=== PATIENT | male | born 1950 | race Caucasian/White ===

== ENCOUNTER → 2023-07-23 10:46 | Outpatient (REF) | payer OTHER, SELFPAY ==
[2023-07-23 12:14] LABS: Hemoglobin 16.2 g/dL (13.0-18.0)
[2023-07-23 12:52] LABS: Microalbumin, Random Urine 0.6 mg/dl (0.6-1.7)
[2023-07-23 13:31] LABS: PSA, Total - Diagnostic 2.22 ng/ml (0.0-4.0)
[2023-07-23 14:30] LABS: Albumin 3.9 g/dl (3.5-5.0); Blood Urea Nitrogen 31 mg/dl (9-20); Calcium 9.8 mg/dl (8.4-10.2); Carbon Dioxide 26 mmol/L (22-30); Chloride 104 mmol/L (98-107); Glucose 100 mg/dl (70-99); Phosphorus 3.6 mg/dl (2.5-4.5); Potassium 4.5 mmol/L (3.5-5.1); Sodium 141 mmol/L (135-145)
[2023-07-24 09:40] LABS: Intact PTH 16.7 pg/ml (13.6-85.8)
== END ==
LOC: RAD 10:46
PROVIDERS: ATTENDING PHYSICIAN Urology; FAMILY PHYSICIAN Family Medicine; OTHER PHYSICIAN Internal Medicine Nephrology; OTHER PHYSICIAN Urology
DX: N20.0 Calculus of kidney (principal); C61 Malignant neoplasm of prostate; N18.32 Chronic kidney disease, stage 3b
CPT/HCPCS: 36415; 76770; 80069; 82043; 83970; 84153; 85018

== ENCOUNTER → 2023-07-25 16:50 | Outpatient (REF) | payer OTHER, SELFPAY | LOC: RAD 16:50 | PROVIDERS: ATTENDING PHYSICIAN Nurse Practitioner Adult Health | DX: R05.1 Acute cough (principal) | CPT/HCPCS: 71046 ==

== ENCOUNTER → 2024-03-12 13:41 | Outpatient (REF) | payer OTHER, SELFPAY | LOC: RAD 13:41 | PROVIDERS: ATTENDING PHYSICIAN Family Medicine | DX: Z87.891 Personal history of nicotine dependence (principal); J44.9 Chronic obstructive pulmonary disease, unspecified; Z72.0 Tobacco use; Z12.2 Encounter for screening for malignant neoplasm of respiratory organs | CPT/HCPCS: 71271 ==

== ENCOUNTER → 2024-06-30 08:30 | Outpatient (REF) | payer OTHER, SELFPAY | LOC: DHCBC/DCA 08:30 | PROVIDERS: ATTENDING PHYSICIAN Family Medicine; REFERRING PHYSICIAN Internal Medicine Cardiovascular Disease | DX: R06.09 Other forms of dyspnea (principal); R91.8 Other nonspecific abnormal finding of lung field | CPT/HCPCS: 78452; 93017; A9500; J2785 ==

== ENCOUNTER → 2024-07-09 11:23 | Outpatient (REF) | payer OTHER, SELFPAY | LOC: RCS 11:23 | PROVIDERS: ATTENDING PHYSICIAN Internal Medicine Cardiovascular Disease; FAMILY PHYSICIAN Family Medicine | DX: R06.09 Other forms of dyspnea (principal) | CPT/HCPCS: 93306 ==

== ENCOUNTER 2024-07-28 13:17 | Inpatient (IN) | payer OTHER, SELFPAY ==
[2024-07-28 09:36] VITALS: BP 92/54
[2024-07-28 10:26] VITALS: BMI 27.8
[2024-07-28] MEDS: NSS 1000 IV ×3 (10:37→23:08)
--- NOTE | 2024-07-28 10:39 | ED.GENMED ---
History of Present Illness
General
Chief Complaint: Fever
Time Seen by Provider: 07/28/24 09:49
History of Present Illness
History of Present Illness:
73-year-old male with history of CKD and COPD presenting to the emergency department for cough and fever. Patient arrives with , notes cough for the past several days which has worsened in the past 2 days. Patient started to have fevers since
yesterday. He reports production of yellowish mucus. Also reports 2 episodes of vomiting. Denies chest pain or difficulty breathing. He does report for the past 24 hours he has been having hiccups. Denies abdominal pain or GI symptoms. at
bedside notes that he has been very weak, had difficulty getting him out of bed into the hospital. Additionally she notes that he has been having some hallucinations which is unlike him. No report of any falls. Multiple sick contacts at home. No
additional symptoms reported at this time
Phy Exam
Physical Exam
Physical Exam:
General: Well-appearing, no clinical signs of dehydration, nontoxic and in no acute distress
HEENT: protecting airway
Neck: appears supple
CV: Normal heart rate, regular rhythm, no evidence of cyanosis
Resp: No accessory muscle use, no increased work of breathing, mild scant expiratory wheezine
Abd: Soft and non-distended, no tenderness to palpation
Extremities: No deformities, no swelling
Neuro: alert, no focal neurologic deficit
: deferred
Rectal: deferred
Psych: Normal affect
Skin: Intact
Course
Orders/Labs/Results
Orders:
Orders
07/28/24 10:13
0.9% Sodium Chloride 1000 ml [Nss] 1,000 ml IV BOLUS
07/28/24 10:14
CR Chest - 2 Views Urgent
Comment:
Reason For Exam: sob, hiccups, cough
07/28/24 10:15
Electrocardiogram (*1) Urgent
Reason for Study: Fatigue / Weakness
07/28/24 10:28
COVID-19 Antigen Urgent
Source: Nasal Swab
Complete Blood Count/With Diff Urgent
Comprehensive Metabolic Panel Urgent
Lactic Acid Q4H
Comment: CANCEL 2nd LACTIC ACID IF 1st LACTIC ACID IS LESS THAN 2
Blood Culture Q30M
RITESH Source: Blood/Venous
Specimen Description:
Blood Culture Q30M
RITESH Source: Blood/Venous
Specimen Description:
Influenza A+B Rapid Molecular Urgent
RITESH Source: Nasal Swab
Specimen Description:
07/28/24 11:46
Nicotine [Nicoderm Transdermal] 21 mg TRANSDERM NOW STA
07/28/24 12:34
Dexamethasone Sod Phosphate [Decadron] 4 mg IV NOW STA
Ipratropium/Albuterol Sulfate [Duoneb] 3 ml INH R Q4HPRN PRN
Metoclopramide [Reglan] 5 mg IV NOW STA
Metoclopramide [Reglan] 5 mg IV Q6HPRN PRN
Oseltamivir Phosphate [Tamiflu] 30 mg PO NOW STA
07/28/24 12:38
Pantoprazole [Protonix IV] 40 mg IV NOW STA
07/28/24 12:45
0.9% Sodium Chloride 1000 ml [Nss] 1,000 ml IV 100 mls/hr
07/28/24 12:53
Admit/Transfer Patient As Directed
Co-Sign Provider:
Level of Care: Inpatient admission
Assign to:: Telemetry
Physician / Group: elizabeth gaytan
Diagnosis: flu A+, acute copd exacerbation, sarita on ckd 3b
Reason for Telemetry: Arrhythmia
Date to Stop Telemetry: 07/31/24
Time to Stop Telemetry: 11:00
Reason for Hospitalization: flu A+, acute copd exacerbation, sarita on ckd 3b
Expected length of stay greater than two midnights?: Yes
ELOS- Estimated Length of Stay in days: 4
I certify the patient meets the requirements for IP care: Yes
Code Status As Directed
Resuscitation Status: Full Code
07/28/24 12:57
PRN Pain Medication Management As Directed
May give lesser potent ordered pain med per pt: Yes
preference::
Protocol:: Medication orders for pain may be administered in a
manner that supports deferring to patient preference
when the pt is:
- Requesting an ordered lesser potent pain medication.
Least to most potent pain medications are defined
as: acetaminophen < NSAID < tramadol < opioids
(morphine, oxycodone, hydromorphone).
- Requesting a lesser dose of the same medication IF
ORDERED.
- Requesting a less intrusive route of administration
if both routes are prescribed by the provider (PO <
IV).
07/28/24 13:02
0.9% Sodium Chloride [Nss (Preservative Free)] 10 ml IV NOW STA
07/28/24 13:32
Acetaminophen [Tylenol] 650 mg PO Q4HPRN PRN
07/28/24 14:20
Nicotine Polacrilex [Nicorette] 2 mg PO Q2HPRN PRN
Ondansetron Injectable [Zofran] 4 mg IV Q6HPRN PRN
07/28/24 14:20
Activity As Directed
Activity Level: As Tolerated
Intake/ Output As Directed
Frequency: Per unit guidelines
Vital Signs As Directed
Frequency: Per unit guidelines
Weight As Directed
Frequency: Daily
O2 Therapy [RESP] Routine
Nasal Cannula Liter Flow: 2 LPM
Titrate/Wean O2 to maintain O2 sat greater than (%): 92
Pulse Ox/spot Check [RESP] Routine
Quantity: 1
Ot Eval And Treat Routine
Pt Eval And Treat Routine
Activity Level: With Assistance
DX Deep Vein Thrombosis Video Routine
07/28/24 16:00
Ipratropium/Albuterol Sulfate [Duoneb] 3 ml INH R QID
07/28/24 18:00
Atorvastatin [Lipitor] 10 mg PO QPM
Fenofibrate [Tricor] 48 mg PO QPM
Finasteride [Proscar] 5 mg PO QPM
07/28/24 20:00
Guaifenesin [Mucinex] 600 mg PO Q12
Heparin 5,000 units SC Q12
Oseltamivir Phosphate [Tamiflu] 30 mg PO BID
07/29/24 00:00
Dexamethasone Sod Phosphate [Decadron] 4 mg IV Q12H
07/29/24 06:00
Complete Blood Count/With Diff IN AM
Comprehensive Metabolic Panel IN AM
Respiratory Culture/Gram Stain IN AM
RITESH Source: Sputum
Specimen Description:
07/29/24 08:00
0.9% Sodium Chloride [Nss (Preservative Free)] 10 ml IV DAILY
Aspirin Chewable [Low Strength Aspirin] 81 mg PO DAILY
Cyanocobalamin [Vitamin B-12] 100 mcg PO DAILY
Pantoprazole [Protonix IV] 40 mg IV DAILY
07/30/24 06:00
Complete Blood Count/With Diff IN AM
Comprehensive Metabolic Panel IN AM
07/31/24 06:00
Complete Blood Count/With Diff IN AM
Comprehensive Metabolic Panel IN AM
07/31/24 11:00
DC Protocol for Telemetry ONCE
08/01/24 06:00
Complete Blood Count/With Diff IN AM
Comprehensive Metabolic Panel IN AM
Abnormal Lab Results
07/28/24
10:28
Absolute Neuts (auto) 6.7 H 10^3/uL
(1.4-6.5)
Absolute Lymphs (auto) 0.8 L 10^3/uL
(1.2-3.4)
Absolute Monos (auto) 1.2 H 10^3/uL
(0.1-0.6)
Neutrophils % 76.7 H %
(42.2-75.2)
Lymphocytes % 9.0 L %
(20.5-51.1)
Monocytes % 13.9 H %
(1.7-9.3)
BUN 52 H mg/dl
(9-20)
Creatinine 2.3 H mg/dL
(0.7-1.3)
Glucose 104 H mg/dl
(70-99)
Total Bilirubin 1.4 H mg/dl
(0.2-1.3)
07/28/24 10:28
07/28/24 10:28
Vital Signs
Initial and Last Documented VS:
Initial Vital Signs
Temp Pulse Resp BP Pulse Ox
100.4 F H 70 20 92/54 100
07/28/24 09:36 07/28/24 09:36 07/28/24 09:36 07/28/24 09:36 07/28/24 09:36
Last Documented Vital Signs
Temp Pulse Resp BP Pulse Ox
102.8 F H 77 18 113/57 95
07/28/24 14:55 07/28/24 14:59 07/28/24 14:59 07/28/24 14:55 07/28/24 14:59
MDM/Problems Addressed
MDM/Problems Addressed:
73-year-old male with history of CKD and COPD presenting for cough and fever with weakness. Vital signs on arrival significant for low-grade fever and low blood pressure.
On exam patient is in no acute distress, currently nontoxic. However vital signs concerning for infectious process and developing sepsis. With the bedside notes history of sepsis in the past. Suspected source of infection is pulmonary given
cough. Patient also notes constant hiccups for the past 24 hours, likely secondary to some sort of diaphragm irritation. Will proceed with laboratory analysis including blood cultures, lactic acid, chest x-ray, viral swabs. Will start patient on
IV fluids and continue to closely monitor
12:00 -patient positive for the flu. Chest x-ray without acute cardiopulmonary disease. Labs show worsening kidney function, indicating component of dehydration. Do feel patient warrants admission given weakness, difficulty ambulating at home,
hallucinations, SARITA. Patient out of window for tamiflu.
*Critical Care Note
Total Time (30-74mins, 75-104mins- exclusive of procedures): Not Applicable
ED Attending Note
-
Portions of this chart may have been created with voice recognition software.� Occasional wrong word or��sound alike� substitutions may have occurred due to the inherent limitations of voice recognition software.
Discharge Plan
Departure
Patient Disposition: Admit
Date of Disposition: 07/28/24
Time of Disposition: 12:10
Presentation/result/management discussed w/ accepting MD/DO: Hospitalist
Condition: Fair
Discharge Problem:
Influenza, Weakness, SARITA (acute kidney injury)
Interventions
Interventions:
*Risk Screen - Suicide Last Done: 07/28/24 10:27
*General Assessment Last Done: 07/28/24 10:27
*Nursing Disposition Last Done: 07/28/24 14:16
ED- Neurological Assessment Last Done: 07/28/24 10:41
ED- Pulmonary Assessment Last Done: 07/28/24 11:06
ED-Skin Assessment Last Done: 07/28/24 10:41
Discharge Date and Time
Discharge Date/Time: 07/28/24 14:17
[2024-07-28 10:49] LABS: % Basophils 0.1 % (0-2); % Eosinophils 0.1 % (0-6); % Immature Granulocytes 0.2 % (0-0.5); % Monocytes 13.9 % (1.7-9.3); % Neutrophils 76.7 % (42.2-75.2); Absolute Lymphocytes 0.8 10^3/uL (1.2-3.4); Absolute Monocytes 1.2 10^3/uL (0.1-0.6); Absolute Neutrophils 6.7 10^3/uL (1.4-6.5); Hematocrit 44.1 % (39.0-52.0); Hemoglobin 14.6 g/dL (13.0-18.0); Mean Corp Hgb Conc. 33.1 g/dL (33.0-37.0); Mean Corpuscular Hgb 28.6 pg (27.0-31.0); Mean Corpuscular Volume 86.3 fL (80.0-94.0); Mean Platelet Volume 10.2 fL (7.4-10.4); Nucleated Red Blood Cells % 0 % (-); Platelet Count 147 10^3/uL (130-400); Red Blood Cell Count 5.11 10^6/uL (4.70-6.10); Red Cell Dist. Width 14.5 % (11.5-14.5); White Blood Cell Count 8.7 10^3/uL (4.8-10.8)
[2024-07-28 11:02] LABS: COVID-19 Antigen Negative (Negative)
[2024-07-28 11:03] VITALS: BP 92/78
[2024-07-28 11:08] LABS: ALT (SGPT) 46 U/L (0-50); AST (SGOT) 58 U/L (17-59); Albumin 4.2 g/dl (3.5-5.0); Alkaline Phosphatase 67 U/L (38-126); Blood Urea Nitrogen 52 mg/dl (9-20); Calcium 9.5 mg/dl (8.4-10.2); Carbon Dioxide 22 mmol/L (22-30); Chloride 101 mmol/L (98-107); Estimated Creatinine Clearance 31 ml/min; Glucose 104 mg/dl (70-99); Potassium 4.2 mmol/L (3.5-5.1); Sodium 137 mmol/L (135-145); Total Bilirubin 1.4 mg/dl (0.2-1.3); eGFR 29.25
[2024-07-28 11:12] LABS: Lactic Acid 1.1 mmol/L (0.7-2.0)
[2024-07-28] MEDS: NICODERM TRANSDERMAL 21 MG TRANSDERM (11:48)
--- NOTE | 2024-07-28 12:39 | W.PN.UPDATE ---
Update Note
Progress Note Update
This is an addendum to the H&P written by Araceli Mera on 07/28/2024. Patient seen and examined independently with CODING ADVISOR.
73-year-old male past medical history of CKD, COPD, hypertension, prostate cancer, BPH, hyperlipidemia, abdominal aortic aneurysm status post repair in 2018, nephrolithiasis, presenting with fever and productive cough for past week and worse in the
past 2 days. Fever starting yesterday. 2 episodes of vomiting. Also with persistent hiccups since yesterday.
Patient with fever 100.4. Blood pressure 90 systolic. Patient positive for influenza A.
Chest x-ray unremarkable. Slight expiratory wheezing on examination.
Labs show creatinine of 2.3 from baseline of 1.6.
Patient clinically septic secondary to influenza infection also with COPD exacerbation/acute bronchitis.
Blood cultures pending. Start Tamiflu. DuoNebs, dexamethasone. IV fluids. Hold antihypertensive medications. Protonix and as needed Reglan for ongoing hiccups.
--- NOTE | 2024-07-28 12:45 | HPS.HSE ---
Family Physician
-
Family Physician: Gamal Mcdonald Jr.
Chief Complaint
-
Productive cough, fever, weakness
History of Present Illness
73-year-old male from home where he lives with his adult sons and multiple grandchildren. He states his grandchildren started 2 weeks ago with flu and has progressed throughout the house including 1 granddaughter sick 4 weeks ago with flu and
pneumonia other granddaughter yesterday started with fever and flu A. Patient has history of chronic cough due to COPD he developed a temperature of 101.5 yesterday with extreme weakness per patient and his . He was taking Tylenol and Mucinex
his [id number] is a nurse practitioner and noticed some wheezing she gave him a nebulizer treatment she had at home for her children which helped improve his breathing. He has temperature here in the ER of 100.4 with O2 sat 92 to 96% on room
air. He complains of productive cough yellow in color, weakness, chills, fever, decreased oral intake. He denies headache, sore throat, chest pain, palpitations, abdominal pain, nausea, vomiting, diarrhea, urinary symptoms. He has past medical
history of COPD, active smoker, hypertension, HLD, CKD 3B, prostate cancer stage I being monitored, renal calculi bladder calculi with sepsis, abdominal aortic aneurysm repair 2018 with stent [facility].
Medical History
Past Medical History
Past Medical History: Reports Other
Additional Past Medical History:
COPD
active smoker
hypertension
HLD
CKD 3B
prostate cancer stage I being monitored
renal calculi bladder calculi with sepsis
Abdominal Aortic Aneurysm repair 2018 with stent [facility].
Past Surgical History: Reports Other
Additional Past Surgical History:
Abdominal Aortic Aneurysm repair 2018 with stent [facility].
Social History
Tobacco: Smoker (1 pack a day x 60 years)
Alcohol: Occasional (1 glass of wine a month)
Personal:
Living: With Family ( adult sons and multiple grandchildren)
Employment: Retired
Family History
Family History: Other (Mother lungs CA history hypertension DM, father multiple strokes, HTN, DM 2)
Allergies / Home Medications
Allergies reflects when Allergies were last updated in [facility].
Home Medications with original date entered in [facility]
Allergy/Medication List:
Allergies
Allergy/AdvReac Type Severity Reaction Status Date / Time
No Known Allergies Allergy Verified 07/28/24 09:46
Home Medications
aspirin 81 mg chewable tablet 81 mg PO DAILY 07/28/24
atorvastatin 10 mg tablet 10 mg PO QPM 07/28/24
chlorthalidone 25 mg tablet 12.5 mg PO DAILY 07/28/24
cyanocobalamin (vitamin B-12) 100 mcg tablet (Vitamin B-12) 100 mcg PO DAILY 07/28/24
doxazosin 8 mg tablet 8 mg PO QPM 07/28/24
dutasteride 0.5 mg capsule 0.5 mg PO QPM 07/28/24
fenofibrate micronized 67 mg capsule 67 mg PO QPM 07/28/24
lisinopril 40 mg tablet 40 mg PO QPM 07/28/24
Review of Systems
-
History Source: Patient and Family ( at bedside)
A 12 point ROS was completed and negative except as noted: Yes
Constitutional: Reports Fever, Fatigue and Chills
EENT: Denies Sore Throat or Runny Nose
Respiratory: Reports Cough (Productive yellow) and Trouble Breathing (Shortness of breath with wheezing expiratory)
Cardiac: Denies Chest Pain, Diaphoresis, Palpitations or Syncope
Abdomen/GI: Reports Other (Decreased oral intake); Denies Abdominal Pain, Nausea, Vomiting, Diarrhea, Constipated, Bloody Stools, Black Stools or Anorexia
: Denies Dysuria, Frequency, Flank Pain, Incontinence, Difficulty Voiding, Urgency or Dark Urine
Musculoskeletal: Denies Joint Pain or Edema
Skin: Denies Itching or Rash
Neurological: Reports Weakness (Generalized); Denies Dizzy or Headache
Endocrine: Reports No Symptoms
Hematologic/Lymphatic: Reports No Symptoms
Psych: Reports Calm
Physical Exam
Vital Signs
Vital Signs
Temp Pulse Resp BP Pulse Ox
100.4 F H 76 23 92/78 94
07/28/24 09:36 07/28/24 11:04 07/28/24 11:04 07/28/24 11:03 07/28/24 11:04
Physical Exam
General: Conversant, Fever, Chills and Other (Generalized weakness); No Pain
HEENT: NormoCephalic, Anicteric, PERRLA, [place] Conjunctivae, No Ptosis and Neck Nontender; No Pharyngeal Erythema
Respiratory: Clear and Wheezes (Expiratory throughout both lung [place]); No Rales or Rhonchi
Cardiac: S1/S2 and Regular Rhythm; No Murmur, Rub, Gallop or Peripheral Edema
Breast: Deferred by me
GI: Soft, Non Tender, Non Distended, Normal Bowel Sounds and No Hepatosplenomegaly
Rectal: Deferred by Provider
Genito-urinary: Deferred by me
Musculoskeletal: No Clubbing, No Cyanosis and No Edema
Skin: Warm and Dry; No Rash or Jaundice
Neuro: AO x 3, No Motor Deficits, Nonfocal/grossly intact, Cranial Nerves Intact and No Sensory Deficits; No Slurred Speech, Facial Droop, Tremors or Sedated
Psych: Calm
Laboratory Results
-
07/28/24 10:28
07/28/24:
Laboratory Results
Lactic Acid 1.1 mmol/L (0.7-2.0) 07/28/24:
Total Bilirubin 1.4 mg/dl (0.2-1.3) H 07/28/24 10:28
AST 58 U/L (17-59) 07/28/24:
ALT 46 U/L (0-50) 02/10/25 10:28
Alkaline Phosphatase 67 U/L (38-126) 07/28/24 10:28
Data Reviewed
-
Diagnostic Radiology: Report Reviewed by me
Lab Data: Labs Reviewed by me
Impression/Plan
-
Impression/plan:
Admit to telemetry
Generalized weakness secondary to influenza A
COVID-negative
92% RA monitor pulse ox will have nasal cannula available to keep pulse ox greater than 92%
Cough x 1 week chronic, fever yesterday to 03/07/2025
-Start Tamiflu 30 mg now and 30 mg twice daily x 5 days
-IV NSS 1 L given in ER, continue IV NSS 100 cc/h
-Tylenol as needed fever
-PT/OT/case management
CXR: No acute cardiopulmonary process
# Acute on chronic COPD exacerbation secondary to influenza A
-DuoNebs scheduled and as needed
-Decadron 4 mg now and 4 mg every 12 hours
-IV Protonix 40 mg down 40 mg daily
#Acute hiccups
-Will give Reglan 5 mg every 6 as needed renal dose
# Acute smoker
1 pack/day x 60 years
-Cessation advised
-Nicotine patch [address]
-As needed Nicorette gum
#Hypotension secondary to volume depletion/HTN�benign
IV NSS 1 bolus given in ER, continue IV NSS 100 cc/h
-Hold chlorthalidone 12.5 mg daily, lisinopril 40 mg every afternoon, doxazosin 8 mg every afternoon
#SARITA on CKD 3B
Creat 2.3/bun 52, GFR 29 prior creat 1.6 on 07/23/2023
-IV NSS 1 bolus given in ER, continue IV NSS 100 cc/h
-Follow BMP
#HLD
-Continue aspirin 81 mg daily preventative
-Continue Lipitor 10 mg every afternoon, fenofibrate 67 mg every afternoon
#AAA�abdomen repair with stent 2018 [facility]
#Prostate CA stage I is being monitored by urology
#BPH
-Continue dutasteride 0.5 mg every afternoon,
Hold doxazosin 8 mg p.o. every afternoon due to hypotension
DVT prophylaxis
Subcu heparin
Full code
[2024-07-28] MEDS: REGLAN 5 MG IV (13:33)
[2024-07-28] MEDS: DECADRON 4 MG IV ×2 (13:33→23:10)
[2024-07-28] MEDS: PROTONIX IV 40 MG IV (13:34)
[2024-07-28] MEDS: NSS (PRESERVATIVE FREE) 10 ML IV (13:35)
[2024-07-28] MEDS: TYLENOL 650 MG PO (13:36)
[2024-07-28] MEDS: DUONEB 3 ML INH ×2 (14:54→21:25)
[2024-07-28 14:55] VITALS: BP 113/57
[2024-07-28 16:38] VITALS: BP 121/58
[2024-07-28 20:33] VITALS: BP 132/73
[2024-07-28] MEDS: TRICOR 48 MG PO (20:35)
[2024-07-28] MEDS: PROSCAR 5 MG PO (20:35)
[2024-07-28] MEDS: HEPARIN 5000 UNITS SC (20:35)
[2024-07-28] MEDS: LIPITOR 10 MG PO (20:35)
[2024-07-28] MEDS: MUCINEX 600 MG PO (20:36)
--- NOTE | 2024-07-28 21:09 | W.PN.UPDATE ---
Update Note
Progress Note Update
RN reports patient refusing Tamiflu. patient and refusing Tamiflu due to its side effects. will discontinue Tamiflu.
--- NOTE | 2024-07-28 21:27 | PTCARENOTE ---
During admission process was at bedside and told me she did not want pt to take tamifu due to the side effects. ALLYN notified to DC order.
[2024-07-28 23:29] VITALS: BP 107/52
[2024-07-29 03:34] VITALS: BP 124/65
[2024-07-29 04:28] VITALS: BMI 28.0
[2024-07-29] MEDS: NSS (PRESERVATIVE FREE) 10 ML IV (07:32)
[2024-07-29] MEDS: LOW STRENGTH ASPIRIN 81 MG PO (07:33)
[2024-07-29] MEDS: MUCINEX 600 MG PO (07:33)
[2024-07-29] MEDS: VITAMIN B-12 100 MCG PO (07:33)
[2024-07-29] MEDS: PROTONIX IV 40 MG IV (07:33)
[2024-07-29] MEDS: HEPARIN 5000 UNITS SC (07:33)
[2024-07-29 07:47] VITALS: BP 135/69
[2024-07-29] MEDS: DUONEB 3 ML INH (07:58)
[2024-07-29] MEDS: NSS 1000 IV (08:17)
[2024-07-29 08:27] LABS: % Basophils 0.1 % (0-2); % Immature Granulocytes 0.6 % (0-0.5); % Lymphocytes 12.2 % (20.5-51.1); % Monocytes 7.8 % (1.7-9.3); % Neutrophils 79.3 % (42.2-75.2); Absolute Immature Granulocytes 0.1 10^3/uL (0-0.05); Absolute Monocytes 0.7 10^3/uL (0.1-0.6); Absolute Neutrophils 6.6 10^3/uL (1.4-6.5); Hematocrit 42.9 % (39.0-52.0); Mean Corp Hgb Conc. 32.6 g/dL (33.0-37.0); Mean Corpuscular Hgb 28.2 pg (27.0-31.0); Mean Corpuscular Volume 86.5 fL (80.0-94.0); Mean Platelet Volume 10.4 fL (7.4-10.4); Nucleated Red Blood Cells % 0 % (-); Platelet Count 151 10^3/uL (130-400); Red Blood Cell Count 4.96 10^6/uL (4.70-6.10); Red Cell Dist. Width 14.6 % (11.5-14.5); White Blood Cell Count 8.3 10^3/uL (4.8-10.8)
[2024-07-29 08:46] LABS: ALT (SGPT) 42 U/L (0-50); AST (SGOT) 56 U/L (17-59); Albumin 3.5 g/dl (3.5-5.0); Alkaline Phosphatase 56 U/L (38-126); Blood Urea Nitrogen 51 mg/dl (9-20); Calcium 8.7 mg/dl (8.4-10.2); Carbon Dioxide 19 mmol/L (22-30); Chloride 107 mmol/L (98-107); Estimated Creatinine Clearance 48 ml/min; Glucose 130 mg/dl (70-99); Potassium 4.6 mmol/L (3.5-5.1); Sodium 138 mmol/L (135-145); Total Bilirubin 0.8 mg/dl (0.2-1.3); Total Protein 6.3 g/dl (6.3-8.2); eGFR 48.85
[2024-07-29 09:00] VITALS: BP 115/74; PULSE 67; O2SAT 94
[2024-07-29 09:05] VITALS: BP 115/74; PULSE 59; O2SAT 94
--- NOTE | 2024-07-29 09:50 | PTOTSP ---
Pt is feeling better and hopes to go home. He is able to get OOB and ambulate without an assistive device. PT will sign off.
--- NOTE | 2024-07-29 10:49 | CM ---
Patient seen bedside with spouse.
Flu +
Patient independent prior to admission.
Patient drives and is retired,.
Patient lives in sons 2 story home.
Patient does not use assistive devices.
Patient has not had VN and denies home care needs.
Patient has a nebulizer at home.
PCP: Dr Mcdonald
Pharmacy: [facility]
Plan: home no needs.
[2024-07-29 11:42] VITALS: BP 134/64
[2024-07-29] MEDS: DECADRON 4 MG IV (11:47)
--- NOTE | 2024-07-29 12:59 | W.DCSUMMARY ---
Addendum entered and electronically signed by Chris Thomas DO 07/31/24 12:47:
Sepsis ruled out
Original Note:
Discharge Summary
Discharge Data
Date of Admission: 07/28/24
Date of Discharge: 07/29/24
-
Pending Results: No
Hospital Course
Mr. Cosby is a 73-year-old male with a medical history of hypertension, CKD stage IIIb, abdominal aortic aneurysm (status post repair 2018), current smoker, and COPD with chronic cough who presented with weakness, fever, and wheezing. He was
found to be saturating appropriately on room air with a pulse ox of 92 to 96% and was borderline febrile with a temperature of 100.4 �F which later fabrice to 103 �F. He tested positive for influenza A and negative for COVID. Chest x-ray showed no
acute pathology. He was bronchospastic on exam which improved with IV steroids. He declined use of oseltamivir due to concern about side effects. Approximately 24 hours after presentation his respiratory status returned to baseline and his
bronchospasm had resolved. He remained afebrile since 4:30 PM on 07/28. Initially his labs revealed an SARITA with a creatinine of 2.3 but improved to 1.5 after IV fluids which appears to be close to his baseline renal function. This is likely due to
poor recent p.o. intake in the setting of acute illness while also taking lisinopril for hypertension. His home dose of lisinopril 40 mg has been decreased to 20 mg for now. He will need to follow-up closely with his primary care physician after
discharge for repeat lab work to monitor his renal function. He will be discharged to home with a prescription for Medrol Dosepak. He has been advised to quit smoking and continue his scheduled home inhalers for COPD. He should also follow-up
with a administrative support clerk which he says he has not done recently.
Gen-AAOx3, NAD
HEENT-NC, AT, anicteric, clear oral mm
Neck-supple
CV-reg, no M, +S1/S2
Lungs-clear B/L
Abd-soft, NT, ND
Musculoskeletal-no edema, no deformity
Skin-warm and dry
Neuro-grossly non-focal
Psych-calm, cooperative
Discharge Plan
-
Patient Disposition: Home (Routine Discharge)
Discharge Diagnosis/Procedures: Bronchospasm, influenza A infection
Diet: No restrictions
Activity: No restrictions and As tolerated
Activity Restrictions/Additional Instructions:
Mr. Cosby is a 73-year-old male with a medical history of hypertension, CKD stage IIIb, abdominal aortic aneurysm (status post repair 2018), current smoker, and COPD with chronic cough who presented with weakness, fever, and wheezing. He was
found to be saturating appropriately on room air with a pulse ox of 92 to 96% and was borderline febrile with a temperature of 100.4 �F which later fabrice to 103 �F. He tested positive for influenza A and negative for COVID. Chest x-ray showed no
acute pathology. He was bronchospastic on exam which improved with IV steroids. He declined use of oseltamivir due to concern about side effects. Approximately 24 hours after presentation his respiratory status returned to baseline and his
bronchospasm had resolved. He remained afebrile since 4:30 PM on 07/28. Initially his labs revealed an SARITA with a creatinine of 2.3 but improved to 1.5 after IV fluids which appears to be close to his baseline renal function. This is likely due to
poor recent p.o. intake in the setting of acute illness while also taking lisinopril for hypertension. His home dose of lisinopril 40 mg has been decreased to 20 mg for now. He will need to follow-up closely with his primary care physician after
discharge for repeat lab work to monitor his renal function. He will be discharged to home with a prescription for Medrol Dosepak. He has been advised to quit smoking and continue his scheduled home inhalers for COPD. He should also follow-up
with a administrative support clerk which he says he has not done recently.
Referrals:
Gamal Mcdonald Jr., DO [Family Provider] -
Prescriptions:
New
nicotine (polacrilex) 2 mg Gum
2 mg PO Q2HPRN PRN (Reason: craving nicotine) 30 Days Qty: 30 0RF
guaifenesin 600 mg Tablet Extended Release 12hr
600 mg PO Q12 3 Days Qty: 6 0RF
methylprednisolone [Medrol (Steven)] 4 mg tablets,dose pack
See Rx Instructions .ROUTE .COMPLEX Qty: 21 0RF
Rx Instructions:
for 6 days
Continued
cyanocobalamin (vitamin B-12) [Vitamin B-12] 100 mcg Tablet
100 mcg PO DAILY
atorvastatin 10 mg tablet
10 mg PO QPM
chlorthalidone 25 mg tablet
12.5 mg PO DAILY
fenofibrate micronized 67 mg capsule
67 mg PO QPM
doxazosin 8 mg tablet
8 mg PO QPM
aspirin 81 mg Tablet,Chewable
81 mg PO DAILY
dutasteride 0.5 mg capsule
0.5 mg PO QPM
Changed
lisinopril 40 mg tablet
20 mg PO QPM 30 Days Qty: 0 0RF
Discharge Orders:
Discharge Patient (As Directed); Ordered 07/29/24
Ordered By: Chris Thomas
Discharge Date and Time
Print Language: MEXICAN
--- NOTE | 2024-07-31 11:58 | PN.CDI ---
CDI
- -
CDI:
Physician Documentation Request
Admit Date: 07/28/24 13:17
Dear Doctor Martha,
Please review the following and provide your response in the progress notes.
Clinical Indicators:
Documentation in the record on the ED report & the 07/28 update note includes the diagnosis of sepsis. The following clinical information was noted in the record:
ED record states 'concerning for infectious process and developing sepsis.'
The 07/28 update note which is an addendum to the H&P states 'Patient clinically septic secondary to influenza infection also with COPD exacerbation/acute bronchitis.'
Based on the above information and the recognized standard SIRS criteria, please clarify if sepsis is still an accurate diagnosis, and reflective of the patient�s condition, to ensure quality of the medical record.
Please clarify in the Progress Notes:
�Sepsis is/was present and is a clinical diagnosis based on (please include this additional support in the medical record)
�After study sepsis has been ruled out
�Other
�Unable to determine
Use of terms such as suspected, likely, concern for, or probable (associated with a specific diagnosis that is being evaluated, monitored, or treated as if it exists) are acceptable and can be coded in the inpatient setting, when documented at the
time of discharge.
Thank you,
Shweta Mann
Staffing Program Manager
Please use your independent medical judgment in providing your response.
== END 2024-07-29 13:55 | disposition home or self-care (01) | DRG 194 ==
LOC: 1 ACUTE 13:17
PROVIDERS: Clinical Nurse Specialist Family Health; Student in an Organized Health Care Education/Training Program; ADMITTING PHYSICIAN Hospitalist; ATTENDING PHYSICIAN Internal Medicine; EMERGENCY PHYSICIAN Student in an Organized Health Care Education/Training Program; FAMILY PHYSICIAN Family Medicine
DX: J10.1 Influenza due to other identified influenza virus with other respiratory manifestations (principal); J44.0 Chronic obstructive pulmonary disease with (acute) lower respiratory infection; J44.1 Chronic obstructive pulmonary disease with (acute) exacerbation; N17.9 Acute kidney failure, unspecified; Z87.442 Personal history of urinary calculi; F17.200 Nicotine dependence, unspecified, uncomplicated; I12.9 Hypertensive chronic kidney disease with stage 1 through stage 4 chronic kidney disease, or unspecified chronic kidney disease; N18.32 Chronic kidney disease, stage 3b; E78.5 Hyperlipidemia, unspecified; C61 Malignant neoplasm of prostate; Z83.3 Family history of diabetes mellitus; Z82.49 Family history of ischemic heart disease and other diseases of the circulatory system; Z71.6 Tobacco abuse counseling; Z79.82 Long term (current) use of aspirin; Z11.52 Encounter for screening for COVID-19; R06.6 Hiccough; I95.9 Hypotension, unspecified; E86.0 Dehydration; J20.9 Acute bronchitis, unspecified
CPT/HCPCS: 71046; 80053; 83605; 85025; 87040; 87502; 87811; 93005; 94640; 97161; 97165; 99285; 99406

== ENCOUNTER 2024-07-31 19:39 | Inpatient (IN) | payer OTHER, SELFPAY ==
[2024-07-31] VITALS (9 sets, daily range): BP systolic 104–157; BP diastolic 56–76; BMI 27.8; BMI 27.9
[2024-07-31] MEDS: TYLENOL/FEVERALL 650 MG RECTAL (15:50)
[2024-07-31] MEDS: NSS 500 IV (16:08)
[2024-07-31] MEDS: XOPENEX 1.25 MG INHALANT SOLUTION INH (16:09)
--- NOTE | 2024-07-31 16:12 | ED.GENMED ---
History of Present Illness
General
Chief Complaint: Breathing Problem
Source: patient, records, family and ambulance crew
Time Seen by Provider: 07/31/24 15:45
History of Present Illness
History of Present Illness:
73yoM with a history of coronary artery disease, COPD, and CKD presenting via EMS for evaluation of shortness of breath. Patient was recently hospitalized from 07/28/24-07/29/24 for influenza and an SARITA. Patient was seen by his PCP today who noted
increased work of breathing. He also reportedly appeared pale with rigors and EMS was called. Patient reports some shortness of breath but history is slightly limited as patient is slow to respond to questioning. was concerned because his
abdomen appeared to be pulsating yesterday and he has been having hiccups. Patient denies any abdominal pain currently.
Phy Exam
General Physical Exam
General Presentation: mild distress
General Skin: warm, dry and flushed
General Habitus: elderly
General Mental: alert
ENT Exam
ENT Exam: normocephalic
Cardiovascular Exam
Cardiovascular Exam: regular rate/rhythm
Pulmonary Exam
Pulmonary Exam: generalized wheezing and other (Tachypnea noted with pursed lip breathing and prolonged expiration. +Faint expiratory wheezes. )
Respiratory Effort: tachypnea
Neurological Exam
Neurological Exam: alert and other (Slow to respond to questions)
Skin Exam
Skin Exam: normal color and warm/dry
Scores
Heart Failure Risk
Heart Failure Risk Score: Not Applicable
Sepsis
Sepsis Screening
Sepsis Assessment: Sepsis
Sepsis Screen
Sepsis Screen: Sepsis
Date: 07/31/24
Time: 20:32
Course
Orders/Labs/Results
Orders:
Orders
07/31/24 Dinner
Cholesterol Lowering
Cholesterol Lowering: Sodium, 2 Gram
07/31/24 15:45
Acetaminophen [Tylenol/Feverall] 650 mg .ROUTE .STK-MED ONE
07/31/24 15:49
Acetaminophen [Tylenol/Feverall] 650 mg RECTAL NOW STA
07/31/24 15:51
0.9% Sodium Chloride 500 ml [Nss] 500 ml IV BOLUS
Levalbuterol [Xopenex 1.25 mg Inhalant Solution] 1.25 mg INH R NOW STA
07/31/24 15:52
CR Chest Portable - 1 View Urgent
Comment:
Reason For Exam: SOB
Reason Study Needs to be Portable: Unable to Transport
07/31/24 15:57
Complete Blood Count/With Diff Urgent
Comprehensive Metabolic Panel Urgent
Lactate Level [Lactic Acid] Urgent
Procalcitonin Urgent
PCT Algorithmm Indication: Respiratory
Troponin I Urgent
Blood Culture Q30M
RITESH Source: Blood/Venous
Specimen Description:
07/31/24 16:11
Blood Culture Q30M
RITESH Source: Blood/Venous
Specimen Description:
07/31/24 16:14
ABG [Arterial Blood Gas] Urgent
%Oxygen/Room Air: 3L NC
07/31/24 16:35
CT Abd/pel Without Iv Or Oral Urgent
Comment:
Reason For Exam: abdominal bloating, flu+
Dexamethasone Sod Phosphate [Decadron] 10 mg IV NOW STA
07/31/24 19:02
COVID-19 Antigen Urgent
Source: Nasal Swab
07/31/24 19:05
VANCOMYCIN Pharmacy to Dose [VANCOCIN Pharmacy to Dose] 1 each Pharmacy To Prepare [Call Pharmacy To Prepare] 0 ml IV PER PROTOCOL
07/31/24 19:11
Vancomycin [Vancocin] 1,500 mg 0.9% Sodium Chloride 500 ml [Nss] 500 ml IV NOW
07/31/24 19:16
Admit/Transfer Patient As Directed
Co-Sign Provider:
Level of Care: Inpatient admission
Assign to:: Telemetry
Physician / Group: Kellie Posada
Diagnosis: sepsis
Reason for Telemetry: Chest Pain syndromes
Date to Stop Telemetry: 08/02/24
Time to Stop Telemetry: 11:00
Reason for Hospitalization: sepsis
Expected length of stay greater than two midnights?: Yes
ELOS- Estimated Length of Stay in days: 3
I certify the patient meets the requirements for IP care: Yes
PRN Pain Medication Management As Directed
May give lesser potent ordered pain med per pt: Yes
preference::
Protocol:: Medication orders for pain may be administered in a
manner that supports deferring to patient preference
when the pt is:
- Requesting an ordered lesser potent pain medication.
Least to most potent pain medications are defined
as: acetaminophen < NSAID < tramadol < opioids
(morphine, oxycodone, hydromorphone).
- Requesting a lesser dose of the same medication IF
ORDERED.
- Requesting a less intrusive route of administration
if both routes are prescribed by the provider (PO <
IV).
07/31/24 19:18
Code Status As Directed
Resuscitation Status: Full Code
07/31/24 20:00
Azithromycin [Zithromax] 500 mg PO Q24H
Cefepime HCl [Maxipime] 2,000 mg IV Q12H
07/31/24 20:19
0.9% Sodium Chloride 1000 ml [Nss] 1,000 ml IV 70 mls/hr
Acetaminophen [Tylenol] 650 mg PO Q4HPRN PRN
Heparin 5,000 units SC Q12
Ipratropium/Albuterol Sulfate [Duoneb] 3 ml INH R Q4HPRN PRN
Ipratropium/Albuterol Sulfate [Duoneb] 3 ml INH R QID
Metoprolol Xl [Toprol Xl] 100 mg PO QPM
Nicotine [Nicoderm Transdermal] 14 mg TRANSDERM DAILY
dutasteride 0.5 mg PO QPM
07/31/24 20:19
Consult Hematology [HEMATOLOGY CONSULT] Routine
Consulting Provider: Glendy Santo
Was physician already notified: Yes
Legionella Urinary Antigen Routine
RITESH Source: Urine
Specimen Description:
MRSA Screen Routine
RITESH Source: Nose
Specimen Description:
Strep pneumoniae Antigen Routine
RITESH Source: Urine
Specimen Description:
Activity As Directed
Activity Level: As Tolerated
Vital Signs As Directed
Frequency: Per unit guidelines
DX Deep Vein Thrombosis Video Routine
07/31/24 21:00
Doxazosin Mesylate [Cardura] 8 mg PO QPM
08/01/24 06:00
Basic Metabolic Panel IN AM
Complete Blood Count/With Diff IN AM
Magnesium IN AM
08/01/24 08:00
Aspirin Chewable [Low Strength Aspirin] 81 mg PO DAILY
Cyanocobalamin [Vitamin B-12] 100 mcg PO DAILY
Prednisone [Deltasone] 40 mg PO DAILY
08/01/24 18:00
Atorvastatin [Lipitor] 10 mg PO QPM
08/02/24 11:00
DC Protocol for Telemetry ONCE
Abnormal Lab Results
07/31/24 07/31/24
15:57 16:14
Abs Immat Gran (auto) 0.1 H 10^3/uL
(0-0.05)
Absolute Lymphs (auto) 1.0 L 10^3/uL
(1.2-3.4)
Immature Gran % 1.1 H %
(0-0.5)
Neutrophils % 81.1 H %
(42.2-75.2)
Lymphocytes % 16.0 L %
(20.5-51.1)
Monocytes % 1.6 L %
(1.7-9.3)
pH 7.49 H
(7.35-7.45)
pCO2 27 L mmHg
(35-48)
pO2 73 L mmHg
(83-108)
HCO3 20.6 L mmol/L
(21-28)
Carbon Dioxide 19 L mmol/L
(22-30)
BUN 34 H mg/dl
(9-20)
Creatinine 1.4 H mg/dL
(0.7-1.3)
Glucose 104 H mg/dl
(70-99)
AST 77 H U/L
(17-59)
ALT 79 H U/L
(0-50)
07/31/24 15:57
07/31/24 15:57
Vital Signs
Initial and Last Documented VS:
Initial Vital Signs
Temp Pulse Resp BP Pulse Ox
104.9 F H 89 24 155/64 94
07/31/24 15:37 07/31/24 15:37 07/31/24 15:37 07/31/24 15:37 07/31/24 15:37
Last Documented Vital Signs
Temp Pulse Resp BP Pulse Ox
98.3 F 78 19 117/76 96
07/31/24 19:03 07/31/24 20:15 07/31/24 20:15 07/31/24 20:00 07/31/24 20:00
MDM/Problems Addressed
Differential Diagnosis Includes:
73yoM here with SOB. Recently diagnosed with the flu and admitted overnight. Discharged 2 days ago. Acutely short of breath at PCP's office today. He arrives on 2L NC. He is ill appearing and tachypneic on arrival with pursed lip breathing and
wheezing. Differential diagnosis includes but is not limited to: influenza, pneumonia, COPD exacerbation, sepsis
Initial ED plan: Check septic workup including blood cultures, lactate, procalcitonin, troponin/EKG, ABG, CXR, and CT abdomen. Xopenex neb, Tylenol, and fluid bolus for symptoms.
*Critical Care Note
Total Time (30-74mins, 75-104mins- exclusive of procedures): Not Applicable
Update Note
Update Note:
White count, lactate, and procalcitonin normal. Creatinine stable from discharge. No obvious infiltrates on CXR. CT abdomen shows 2 liver masses highly suspicious for malignancy. IV Decadron given and patient admitted for further management. Patient
on 3L NC at time of admission.
ED Attending Note
-
Portions of this chart may have been created with voice recognition software.� Occasional wrong word or��sound alike� substitutions may have occurred due to the inherent limitations of voice recognition software.
Discharge Plan
Departure
Patient Disposition: Admit
Date of Disposition: 07/31/24
Time of Disposition: 18:27
Presentation/result/management discussed w/ accepting MD/DO: Hospitalist
Discharge Problem:
Influenza A, Acute exacerbation of chronic obstructive pulmonary disease (COPD), Acute respiratory failure with hypoxia, Liver masses
Interventions
Interventions:
*Risk Screen - Suicide Last Done: 07/31/24 15:51
*General Assessment Last Done: 07/31/24 15:51
*Neglect/Abuse Screening Last Done: 07/31/24 15:51
*ED COVID-19 Vaccine History Last Done: 07/31/24 15:51
*Nursing Disposition Last Done: 07/31/24 20:17
ED- Cardiac Assessment Last Done: 07/31/24 15:54
ED- Pulmonary Assessment Last Done: 07/31/24 15:54
Discharge Date and Time
Discharge Date/Time: 07/31/24 20:18
[2024-07-31 16:29] LABS: Hematocrit 44.3 % (39.0-52.0); Hemoglobin 14.6 g/dL (13.0-18.0); Mean Corpuscular Volume 84.9 fL (80.0-94.0); Mean Platelet Volume 10.4 fL (7.4-10.4); Platelet Count 138 10^3/uL (130-400); Red Blood Cell Count 5.22 10^6/uL (4.70-6.10); Red Cell Dist. Width 14.5 % (11.5-14.5); White Blood Cell Count 6.5 10^3/uL (4.8-10.8)
[2024-07-31 16:30] LABS: ALT (SGPT) 79 U/L (0-50); AST (SGOT) 77 U/L (17-59); Alkaline Phosphatase 67 U/L (38-126); Blood Urea Nitrogen 34 mg/dl (9-20); Calcium 9.1 mg/dl (8.4-10.2); Carbon Dioxide 19 mmol/L (22-30); Chloride 102 mmol/L (98-107); Estimated Creatinine Clearance 52 ml/min; Glucose 104 mg/dl (70-99); Potassium 4.3 mmol/L (3.5-5.1); Sodium 137 mmol/L (135-145); Total Bilirubin 0.9 mg/dl (0.2-1.3); Total Protein 7.2 g/dl (6.3-8.2); eGFR 53.07
[2024-07-31 16:31] LABS: B.E. -1.3 mmol/L; HCO3 20.6 mmol/L (21-28); O2 Saturation % 97.1 % (94-98); PCO2 27 mmHg (35-48); PO2 73 mmHg (83-108); pH 7.49 (7.35-7.45)
[2024-07-31 16:36] LABS: Lactic Acid 1.9 mmol/L (0.7-2.0)
[2024-07-31 16:42] LABS: Procalcitonin 0.19 ng/ml (0.0-0.25)
[2024-07-31 16:51] LABS: Troponin I < 0.012 ng/ml
[2024-07-31 16:55] LABS: % Basophils 0.2 % (0-2); % Immature Granulocytes 1.1 % (0-0.5); % Monocytes 1.6 % (1.7-9.3); % Neutrophils 81.1 % (42.2-75.2); Absolute Immature Granulocytes 0.1 10^3/uL (0-0.05); Absolute Monocytes 0.1 10^3/uL (0.1-0.6); Absolute Neutrophils 5.2 10^3/uL (1.4-6.5); Nucleated Red Blood Cells % 0 % (-)
[2024-07-31] MEDS: DECADRON 10 MG IV (17:29)
--- NOTE | 2024-07-31 18:36 | HPS.HSE ---
Addendum entered and electronically signed by Kellie Posada MD 07/31/24 22:26:
*no IV contrast used in CT Abdomen
Original Note:
Family Physician
-
Family Physician: Gamal Mcdonald Jr.
Chief Complaint
-
shortness of breath
History of Present Illness
Mr. Edward Cosby is a 73 yo man with hx essential HTN, CKD III, abdominal aortic aneurysm s/p repair 2018, tobacco use, COPD, recent admission 07/28-07/29 for influenza A and COPD exacerbation presents to the ER with increasing shortness of
breath and rigors.
History obtained by patient and at bedside. His fevers had resolved since prior admission but today he felt warm again and had rigors at PCP office. also describes frequent hiccups and what sounds like accessory muscle use of abdomen
when coughing (described significant abdominal movement). Patient states his cough has been consistent since flu diagnosis. No nausea/vomiting, + mild diarrhea. No LE swelling. He has been eating and drinking okay.
Medical History
Past Medical History
Past Medical History: Reports Other
Additional Past Medical History:
COPD
active smoker
hypertension
HLD
CKD 3B
prostate cancer stage I being monitored
renal calculi bladder calculi with sepsis
Abdominal Aortic Aneurysm repair 2018 with stent [facility].
Past Surgical History: Reports Other
Additional Past Surgical History:
Abdominal Aortic Aneurysm repair 2018 with stent [facility].
Social History
Tobacco: Smoker (1 pack a day x 60 years)
Alcohol: Occasional (1 glass of wine a month)
Personal:
Living: With Family ( adult sons and multiple grandchildren)
Employment: Retired
Family History
Family History: Other (Mother lungs CA history hypertension DM, father multiple strokes, HTN, DM 2)
Allergies / Home Medications
Allergies reflects when Allergies were last updated in [email or web address].
Home Medications with original date entered in [email or web address]
Allergy/Medication List:
Allergies
Allergy/AdvReac Type Severity Reaction Status Date / Time
No Known Allergies Allergy Verified 07/31/24 15:37
Home Medications
aspirin 81 mg chewable tablet 81 mg PO DAILY 07/28/24
atorvastatin 10 mg tablet 10 mg PO QPM 07/28/24
chlorthalidone 25 mg tablet 12.5 mg PO DAILY 07/28/24
cyanocobalamin (vitamin B-12) 100 mcg tablet (Vitamin B-12) 100 mcg PO DAILY 07/28/24
doxazosin 8 mg tablet 8 mg PO QPM 07/28/24
dutasteride 0.5 mg capsule 0.5 mg PO QPM 07/28/24
fenofibrate micronized 67 mg capsule 67 mg PO QPM 07/28/24
lisinopril 40 mg tablet 20 mg (1/2 x 40 mg) PO QPM 30 days #0 tabs 07/29/24
methylprednisolone 4 mg tablets in a dose pack (Medrol (Steven)) See Rx Instructions PO .COMPLEX #21 ea 07/29/24
nicotine (polacrilex) 2 mg gum 2 mg PO Q2HPRN PRN craving nicotine 30 days #30 ea 07/29/24
guaifenesin 600 mg tablet, extended release 12 hr 600 mg PO [id number] PRN cough 07/31/24
metoprolol succinate 100 mg tablet,extended release 24 hr 100 mg PO QPM 07/31/24
Review of Systems
-
History Source: Patient
A 12 point ROS was completed and negative except as noted: Yes
Physical Exam
Vital Signs
Vital Signs
Temp Pulse Resp BP Pulse Ox
104.9 F H 89 26 117/56 95
07/31/24 15:37 07/31/24 18:15 07/31/24 18:15 07/31/24 18:00 07/31/24 18:15
Physical Exam
General: No Apparent Distress and Conversant
HEENT: PERRLA
Respiratory: Rales and Rhonchi
Cardiac: S1/S2 and Regular Rhythm
GI: Soft and Non Tender
Musculoskeletal: No Edema
Skin: Warm and Dry; No Rash
Neuro: AO x 3
Psych: Calm
Laboratory Results
-
07/31/24 15:57
07/31/24 15:57
Laboratory Results
pH 7.49 (7.35-7.45) H 07/31/24 16:14
pCO2 27 mmHg (35-48) L 07/31/24 16:14
pO2 73 mmHg (83-108) L 07/31/24 16:14
HCO3 20.6 mmol/L (21-28) L 07/31/24 16:14
Lactic Acid 1.9 mmol/L (0.7-2.0) 07/31/24 15:57
Total Bilirubin 0.9 mg/dl (0.2-1.3) 07/31/24 15:57
AST 77 U/L (17-59) H 07/31/24 15:57
ALT 79 U/L (0-50) H 07/31/24 15:57
Alkaline Phosphatase 67 U/L (38-126) 07/31/24 15:57
Troponin I < 0.012 ng/ml 07/31/24 15:57
Data Reviewed
-
Diagnostic Radiology: Report Reviewed by me
Lab Data: Labs Reviewed by me
Impression/Plan
-
Mr. Edward Cosby is a 73 yo man with hx essential HTN, CKD III, abdominal aortic aneurysm s/p repair 2017, tobacco use, COPD, recent admission 07/28-07/29 for influenza A and COPD exacerbation presents to the ER with increasing shortness of
breath.
Triage VS: T 104.9, P 89, RR 24, BP 155/64, SpO2 94%
LABS: WBC 6.5, Hg 14.6, PLT 138, Na 137, CO2 19, BUN 34, Cr 1.4, Glucose 104, T. Bili 0.9, AST 77, ALT 79, Alk Phos 67, Trop < 0.012, Procal 0.19
CXR without obvious pneumonia
CT A/P
IMPRESSION:
Diverticulosis without definitive CT evidence of acute diverticulitis. No bowel obstruction.
No obstructive uropathy. Nonobstructing calculus in the lower pole left kidney. Lower pole left renal cortical atrophy. Small bilateral renal cysts. Possible 1 mm urinary bladder calculus.
Intrahepatic space-occupying lesions; highly suspicious for neoplasm.
Liver: The anterior segment right lobe low-attenuation mass measuring 2.5 cm. Medial segment left lobe low-attenuation mass measuring 6.5 cm.
Sepsis
Concern for superimposed bacterial pneumonia given recent Influenza diagnosis
-CXR without obvious infiltrate but with high fever and shortness of breath with recent influenza, will start antibiotics
-cover broadly with Vanc/Cefepime and Azithro for atypical coverage for now
-F/U MRSA swab
-F/U legionella and strep testing
-F/U blood cultures
-IVF
COPD
-Patient was on day 2 of Solumedrol dose pack
-s/p Decadron in the ER
-will order Prednisone here
-duonebs
Tobacco use
-nicotine patch ordered
Finding of liver mass suspicious for neoplasm
-Oncology consult to help with next step in work-up
-may need IR guided biopsy when more stable
-per , patient had script for chest CT for Sunday, can order here based on follow up creatinine post contrast today
CKD
-creatinine stable
BPH
-MANAGER CORE Dustateride
Essential HTN
-MANAGER CORE Doxazosin with hold parameters
-MANAGER CORE Metoprolol with hold parameters
-hold senior financial reporting analyst chlorthalidone and lisinopril for now
DVT PPx hep subQ
FULL CODE
76 minutes spent on patient care
[2024-07-31] MEDS: VANCOCIN 530 MG IV (19:23)
[2024-07-31 19:37] LABS: COVID-19 Antigen Negative (Negative)
--- NOTE | 2024-07-31 20:04 | PHA.VAN.IN ---
Assessment
- Assessment
Renal Function: Unknown baseline
Concomitant Antimicrobials: cefepime
Plan
- Plan
Initial / Loading Dose: vanc 1500mg + 500mg split loading dose
Maintenance Regimen: dosing by level
Monitoring: random level 08/01 599
Pharmacokinetics Vancomycin I
- -
Patient Age: 73
Patient Sex: Male
Vancomycin Day #: 1
Indication: Pulmonary/Respiratory
Requesting Provider: Dr. Posada
Pertinent Antimicrobial Allergies:
no pertinent antimicrobial allergies
Height / Weight:
Height 6 ft
Actual Weight 93 kg
- Vital Signs / Lab Results
Temp Pulse Resp BP Pulse Ox
98.3 F 89 26 117/56 95
07/31/24 19:03 07/31/24 18:15 07/31/24 18:15 07/31/24 18:00 07/31/24 18:15
Lab Results - Hematology
07/31/24
15:57
WBC 6.5
Lab Results - Chemistry
07/31/24
15:57
BUN 34 H
Creatinine 1.4 H
Estimated Creat Clear 52
Albumin 4.0
07/31/24
15:57
Lactic Acid 1.9
[2024-07-31] MEDS: DUONEB 3 ML INH (21:36)
[2024-07-31] MEDS: VANCOCIN HCL 500 MG 100 IV (21:46)
[2024-07-31] MEDS: NICODERM TRANSDERMAL TRANSDERM (21:48)
[2024-07-31] MEDS: HEPARIN 5000 UNITS SC (22:04)
[2024-07-31] MEDS: TOPROL XL 100 MG PO (22:04)
[2024-07-31] MEDS: ZITHROMAX 500 MG PO (22:04)
[2024-07-31] MEDS: PROSCAR 5 MG PO (22:05)
[2024-07-31] MEDS: NSS 1000 IV (22:06)
[2024-07-31] MEDS: CARDURA 8 MG PO (22:35)
[2024-07-31] MEDS: STERILE WATER FOR INJECTION 10 ML IV (22:44)
[2024-07-31] MEDS: MAXIPIME 2000 MG IV (22:44)
[2024-08-01 02:49] VITALS: BP 103/76
--- NOTE | 2024-08-01 04:22 | PTCARENOTE ---
Pt. rec'd into room 2135 from ED AAOx3, TOLOWA DEE-NI', slightly forgetful - lethargic and drowsy at baseline. Able to transfer from stretcher to bed with assist x 1, generally weak and unsteady. Some TYSON assessed, lungs with bilateral rhonchi, moist
nonproductive cough present, pulse ox on 3L O2 96%. Other VSS, NSR on the monitor. Pt. states he's usually continent of bowel and bladder but had incontinent episode in ED, changed into clean attends and his since used urinal without difficulty
(pending urine specimen collected and sent). Bed alarm on due to forgetfulness, fall precautions initiated.
[2024-08-01 05:24] VITALS: BMI 27.9
[2024-08-01] MEDS: DUONEB 3 ML INH ×3 (07:20→19:37)
[2024-08-01 07:40] VITALS: BP 138/66
[2024-08-01] MEDS: DELTASONE 40 MG PO (08:33)
[2024-08-01] MEDS: VITAMIN B-12 100 MCG PO (08:33)
[2024-08-01] MEDS: LOW STRENGTH ASPIRIN 81 MG PO (08:33)
[2024-08-01] MEDS: TYLENOL 650 MG PO (08:33)
[2024-08-01] MEDS: STERILE WATER FOR INJECTION 10 ML IV ×2 (08:34→20:42)
[2024-08-01] MEDS: NICODERM TRANSDERMAL 14 MG TRANSDERM (08:34)
[2024-08-01] MEDS: HEPARIN SC ×3 (08:34→20:38)
[2024-08-01] MEDS: MAXIPIME 2000 MG IV ×2 (08:35→20:39)
[2024-08-01 08:44] LABS: % Basophils 0.1 % (0-2); % Immature Granulocytes 0.7 % (0-0.5); % Lymphocytes 6.4 % (20.5-51.1); % Monocytes 4.5 % (1.7-9.3); % Neutrophils 88.3 % (42.2-75.2); Absolute Immature Granulocytes 0.1 10^3/uL (0-0.05); Absolute Lymphocytes 1.1 10^3/uL (1.2-3.4); Absolute Monocytes 0.8 10^3/uL (0.1-0.6); Absolute Neutrophils 15.3 10^3/uL (1.4-6.5); Hematocrit 39.8 % (39.0-52.0); Hemoglobin 13.3 g/dL (13.0-18.0); Mean Corp Hgb Conc. 33.4 g/dL (33.0-37.0); Mean Corpuscular Hgb 28.9 pg (27.0-31.0); Mean Corpuscular Volume 86.3 fL (80.0-94.0); Nucleated Red Blood Cells % 0 % (-); Platelet Count 133 10^3/uL (130-400); Red Blood Cell Count 4.61 10^6/uL (4.70-6.10); Red Cell Dist. Width 14.7 % (11.5-14.5); White Blood Cell Count 17.4 10^3/uL (4.8-10.8)
[2024-08-01 09:02] LABS: Vancomycin Random 12.1 ug/ml
--- NOTE | 2024-08-01 09:08 | PHA.VAN.FU ---
Vancomycin Assessment / Plan
- Assessment
Renal Function: Stable
WBC's are: Trending Up
Concomitant Antimicrobials: cefepime, azithromycin
- Assessment - Therapeutic Drug Monitoring
Random Level: 12.1 - drawn ~9H after split load of 2g
- Dosing Plan
Dosing by Level: Re-dose today (Vanc 1500mg)
Dosing Comments: will keep dose by level for now and follow renal function trend
- Monitoring Plan
Random Level: 08/02 0600
- Follow Up
Pharmacy will continue to follow.
Vancomycin Follow UP
- -
Patient Age: 73
Patient Sex: Male
Vancomycin Day #: 2
Indication: Pulmonary/Respiratory
Requesting Provider: Dr. Posada
Pertinent Antimicrobial Allergies:
NKDA
Height / Weight:
Height 6 ft
Actual Weight 93.123 kg
Pertinent Past Medical History: CKD III, recent influenza
- Vital Signs / Lab Results
Temp Pulse Resp BP Pulse Ox
97.9 F 48 16 138/66 94
08/01/24 07:40 08/01/24 07:40 08/01/24 07:40 08/01/24 07:40 08/01/24 07:40
Lab Results - Hematology
07/31/24 08/01/24
15:57 06:39
WBC 6.5 17.4 H
Lab Results - Chemistry
07/31/24
15:57
BUN 34 H
Creatinine 1.4 H
Estimated Creat Clear 52
Albumin 4.0
07/31/24
15:57
Lactic Acid 1.9
Microbiology Results
07/31/24 23:59 Legionella Urinary Antigen - Final
Urine Negative for Legionella pneumophila Serogroup 1 antigen.
A negative result does not rule out the possiblity of
Legionella infection due to other serogroups or species of
Legionella. Clinical correlation is recommended.
07/31/24 23:59 Streptococcus pneumoniae Antigen (M - Final
Urine Negative for Streptococcus pneumoniae antigen.
A negative result does not exclude infection with
Streptococcus pneumoniae. Clinical correlation is
recommended.
Therapeutic Drug Monitoring
Random Vancomycin 12.1 ug/ml 08/01/24 06:39
[2024-08-01 09:29] LABS: ALT (SGPT) 81 U/L (0-50); AST (SGOT) 69 U/L (17-59); Albumin 3.3 g/dl (3.5-5.0); Alkaline Phosphatase 69 U/L (38-126); Blood Urea Nitrogen 34 mg/dl (9-20); Calcium 8.5 mg/dl (8.4-10.2); Carbon Dioxide 22 mmol/L (22-30); Chloride 105 mmol/L (98-107); Direct Bilirubin 0.3 mg/dl (0.0-0.4); Estimated Creatinine Clearance 56 ml/min; Glucose 132 mg/dl (70-99); Magnesium 2.1 mg/dl (1.6-2.3); Potassium 4.3 mmol/L (3.5-5.1); Sodium 140 mmol/L (135-145); Total Bilirubin 0.8 mg/dl (0.2-1.3); Total Protein 6.2 g/dl (6.3-8.2); eGFR 58.01
--- NOTE | 2024-08-01 10:07 | CM ---
Reviewed the chart notes and spoke withe the patient at the bedside. Patient was recently discharged from here to home on 07/29/2024. The patient is currently on supplemental O2. The patient resides with his son in a two story home with two steps
to enter. The patient reports no DME or SNF in past, but did have VN. Agency unknown. The patient confirmed his pharmacy of choice is the [facility]. CM continues to be available to patient/family and is monitoring medical
plan for needs at discharge.
Plan: Discharge plans will depend on the patient's progress.
[2024-08-01 10:22] LABS: Hepatitis C Antibody Negative (Negative)
[2024-08-01 12:02] VITALS: BP 149/68
--- NOTE | 2024-08-01 12:14 | W.PN.HOSP.TC ---
Today's Communication/Plan
-
Assessment / Plan
Assessment / Plan
Gen-AAOx3, NAD
HEENT-NC, AT, anicteric, clear oral mm
Neck-supple
CV-reg, no M, +S1/S2
Lungs-mild scattered wheezing bilaterally
Abd-soft, NT, ND
Musculoskeletal-no edema, no deformity
Skin-warm and dry
Neuro-grossly non-focal
Psych-calm, cooperative
Mr. Cosby is a 73-year-old male with a medical history of hypertension, CKD stage IIIb, abdominal aortic aneurysm (status post repair 2018), current smoker, and COPD with chronic cough who presented with fevers, rigors, and sporadic hiccups.
He was recently discharged on 07/29 after treatment for respiratory symptoms in the setting of acute influenza infection. He developed fevers and rigors in his PCPs office and so was sent back to to the ED for further evaluation. He has been
saturating appropriately on low-flow nasal cannula and intermittently on room air. He now has a significant leukocytosis of 17,000 which is likely at least in part due to recent steroid use. Chest imaging was unremarkable. CT abdomen pelvis
showed intrahepatic space-occupying lesions highly suspicious for neoplasm. He has been started on broad-spectrum antibiotics and admitted for further evaluation management of sepsis secondary to pneumonia.
Sepsis secondary to pneumonia:
-Presented with fever and leukocytosis, leukocytosis likely at least partially due to recent steroid use
-No clear consolidations on lung imaging although he recently tested positive for influenza A
-Started on broad-spectrum antibiotics and coverage for atypicals
-Strep pneumo and Legionella urinary antigens negative so we will discontinue azithromycin
-MRSA screen negative so discontinue vancomycin
-Continue antibiotic coverage with ceftriaxone
-Supplemental oxygen as needed
-Continue prednisone for mild bronchospasm
-Follow cultures
-Continue nebulizers
Liver masses:
-Suspicious masses in the liver incidentally noted on CT imaging
-Mild transaminitis possibly due to liver masses
-Heme-onc following, will tentatively plan for IR guided biopsy
-PCP-planning CT chest to follow-up on abnormal nodules noted on screening CT considering smoking history
SARITA on CKD stage IIIb:
-Mild, resolving, appears close to baseline renal function
-Holding home chlorthalidone and lisinopril until renal function stabilizes
Hypertension:
-Continue metoprolol succinate
-Restart home chlorthalidone and lisinopril once renal function stabilizes
Enlarged prostate:
-Also history of stage I prostate cancer being monitored
-Continue dutasteride
Tobacco abuse:
-Current smoker
-Continue to encourage cessation, nicotine patch provided
CODE STATUS: Full code
Anticipated Discharge: 24 - 48 hours
Subjective/Interval History
-
Date of Service: August 01, 2024
Patient was seen and examined at bedside this morning. He continues to have sporadic hiccups. He is currently breathing comfortably. He was recently discharged after treatment for shortness of breath in the setting of influenza infection. He was
sent back to the hospital from his PCPs office due to fevers and rigors.
Objective Data
-
Labs:
Laboratory Results
08/01/24
06:39
WBC 17.4 H
Hgb 13.3
Hct 39.8
Plt Count 133
Sodium 140
Potassium 4.3
Chloride 105
Carbon Dioxide 22
BUN 34 H
Creatinine 1.3
Glucose 132 H
Calcium 8.5
Total Bilirubin 0.8
AST 69 H
ALT 81 H
Alkaline Phosphatase 69
Vital Signs:
Vital Signs
Temp Pulse Resp BP Pulse Ox
97.5 F 52 20 149/68 97
08/01/24 12:02 08/01/24 12:02 08/01/24 12:02 08/01/24 12:02 08/01/24 12:02
I&O
07/31/24 08/01/24 08/02/24
06:59 06:59 06:59
Intake Total 1080 / 1080
Output Total 625 / 625
Balance 455 / 455
Review of Systems
-
History Source: Patient
All other systems: Reviewed and negative
Respiratory: Reports Other (Hiccups)
Physical Exam
-
General: No Apparent Distress
--- NOTE | 2024-08-01 12:47 | CON.ONC ---
Impression
Impression
- liver lesions on CT
- influenzae A with worsening SOB
- lung nodules
Plan
Plan
- CT A/P noting two hypodense lesions in liver measuring 2.5 and 6.5 cm. DDX: neoplasm vs. abscess vs. benign lesions. No obvious other site of malignancy in A/P. Colon and prostate cancer screening up todate.
- Check MRI abdomen to further characterize lesions. If MRI suggestive for malignancy will consult IR for biopsy.
- Ct chest in february for lung cancer screening (active smoker) showed several sub-cm lesions without suspicious characteristics, largest in LLL ~ 6 mm at that time and stable on CT A/P. dedicated Ct chest with contrast to further assess for lung
primary.
- will continue to follow.
Patient History
History of Present Illness
Mr. Edward Cosby is a 73 yo man with hx essential HTN, CKD III, abdominal aortic aneurysm s/p repair 2017, tobacco use, COPD, recent admission 07/28-07/29 for influenza A and COPD exacerbation presents to the ER with increasing shortness of
breath and rigors at PCP. Vitals on admission with T 104.9, afebrile since. BCX pending. Oncology consulted for liver lesions on CT A/P. CT A/P this admission noted in the liver a right lobe low-attenuation mass measuring 2.5 cm. Medial segment
left lobe low-attenuation mass measuring 6.5 cm. No prior recent abdominal imaging however liver grossly without lesions on CT chest in February which was completed for lung cancer screening and noted several small nodules with largest ~ 6 mm in
LLL (this is also seen on recent CT A/P, unchanged). Pt was supposed to have repeat CT this week to monitor nodules. Denies worsening SOB or cough preceding viral illness, weight loss, new back or bone pain except for low back pain this week in
setting of decreased acitivty with illness. He is active smoker, 1PPD x 50 years. he notes prior hx ETOH use however stopped heavy alcohol use at 50. No hx of viral hepatitis. Hep C negative. NO hx of fatty liver or cirrhosis. Labs show WBC 17.4,
AST 69, ALT 81. LFT elevation new compared to recent admission 07/28-07/29. cancer screening up to date with colonoscopy last month (benign polyps), PSA yearly (hx of BPH, sees urology), CT chest in feb.
Patient Medication
�Medication �Instructions �Recorded �Confirmed �Last Taken �Type
aspirin 81 mg chewable tablet 81 mg PO DAILY Blood Clot 07/28/24 07/31/24 07/27/24 History
Prevention/Tx
atorvastatin 10 mg tablet 10 mg PO QPM High Cholesterol 07/28/24 07/31/24 07/27/24 History
chlorthalidone 25 mg tablet 12.5 mg PO DAILY Fluid 07/28/24 07/31/24 07/27/24 History
Retention/Swelling
cyanocobalamin (vitamin B-12) 100 100 mcg PO DAILY Supplement 07/28/24 07/31/24 07/27/24 History
mcg tablet (Vitamin B-12)
doxazosin 8 mg tablet 8 mg PO QPM Blood Pressure 07/28/24 07/31/24 07/27/24 History
dutasteride 0.5 mg capsule 0.5 mg PO QPM Urinary Issue 07/28/24 07/31/24 07/27/24 History
fenofibrate micronized 67 mg 67 mg PO QPM High Cholesterol 07/28/24 07/31/24 07/27/24 History
capsule
methylprednisolone 4 mg tablets in See Rx Instructions PO .COMPLEX 07/29/24 07/31/24 Unknown Rx
a dose pack (Medrol (Steven)) #21 ea
nicotine (polacrilex) 2 mg gum 2 mg PO Q2HPRN PRN craving 07/29/24 07/31/24 Unknown Rx
nicotine 30 days #30 ea
guaifenesin 600 mg tablet, 600 mg PO [id number] PRN cough 07/31/24 07/31/24 Unknown History
extended release 12 hr
metoprolol succinate 100 mg 100 mg PO QPM Heart 07/31/24 07/31/24 Unknown History
tablet,extended release 24 hr Disease/Condition
lisinopril 40 mg tablet 20 mg PO QPM Blood Pressure 08/01/24 07/31/24 Unknown History
Active Medications
Generic Name Dose Route Start Last Admin
Trade Name Freq PRN Reason Stop Dose Admin
Acetaminophen 650 mg 07/31/24 20:19 08/01/24 08:33
Acetaminophen 325 Mg Tablet PO 08/28/24 20:18 650 mg
Q4HPRN PRN Administration
mild pain/SANCHEZ/temp> 100.4F
Albuterol/Ipratropium 3 ml 07/31/24 20:19 08/01/24 11:10
Ipratropium 0.5/Albuterol 3 Mg (3 Ml Ampul) INH 3 ml
R QID BLAS Administration
Protocol
Albuterol/Ipratropium 3 ml 07/31/24 20:19
Ipratropium 0.5/Albuterol 3 Mg (3 Ml Ampul) INH
R Q4HPRN PRN
shortness of breath
Protocol
Aspirin 81 mg 08/01/24 08:00 08/01/24 08:33
Aspirin 81 Mg Chewable Tablet PO 08/29/24 07:59 81 mg
DAILY BLAS Administration
Atorvastatin Calcium 10 mg 08/01/24 18:00
Atorvastatin (Lipitor) 10 Mg Tablet PO 08/29/24 17:59
QPM BLAS
Cefepime HCl 2,000 mg 07/31/24 20:00 08/01/24 08:35
Cefepime Hcl 2,000 Mg/12.5 Ml Vial IV 08/02/24 02:00 2,000 mg
Q12H BLAS Administration
Ceftriaxone Sodium 1,000 mg 08/02/24 08:00
Ceftriaxone 1000 Mg / 10 Ml Vial IV
Q24H BLAS
Cyanocobalamin 100 mcg 08/01/24 08:00 08/01/24 08:33
Cyanocobalamin (Vitamin B-12) 100 Mcg Tablet PO 08/29/24 07:59 100 mcg
DAILY BLAS Administration
Doxazosin Mesylate 8 mg 07/31/24 21:00 07/31/24 22:35
Doxazosin 4 Mg Tablet PO 08/28/24 20:59 8 mg
QPM BLAS Administration
Finasteride 5 mg 07/31/24 21:00 07/31/24 22:05
Finasteride 5 Mg Tablet PO 08/28/24 20:59 5 mg
QPM BLAS Administration
Heparin Sodium 5,000 units 07/31/24 20:19 08/01/24 08:44
Heparin 5,000 Units/Ml 1 Ml Vial SC 08/28/24 20:18 Not Given
Q12 BLAS
Sodium Chloride 1,000 mls @ 70 mls/hr 07/31/24 20:19 07/31/24 22:06
Nss IV 1,000 mls
.[id number] BLAS Administration
Metoprolol Succinate 100 mg 07/31/24 20:19 07/31/24 22:04
Metoprolol 100 Mg Extended Release Tablet PO 08/28/24 20:18 100 mg
QPM BLAS Administration
Nicotine 14 mg 07/31/24 20:19 08/01/24 08:34
Nicotine 14 Mg Patch TRANSDERM 08/28/24 20:18 14 mg
DAILY BLAS Administration
Prednisone 40 mg 08/01/24 08:00 08/01/24 08:33
Prednisone 20 Mg Tablet PO 08/29/24 07:59 40 mg
DAILY BLAS Administration
Sodium Chloride 0 flush 07/31/24 20:00
Sodium Chloride 0.9% (Flush) Syringe IV 08/28/24 19:59
PER PROTOCOL BLAS
Sterile Water 10 ml 07/31/24 20:00 08/01/24 08:34
Sterile Water For Injection 10 Ml Vial IV 08/02/24 02:00 10 ml
Q12H BLAS Administration
Sterile Water 10 ml 08/02/24 08:00
Sterile Water For Injection 10 Ml Vial IV 08/30/24 07:59
DAILY@0800 BLAS
Review of Systems
-
History Source: Patient
Constitutional: Reports Fever, Fatigue and Weakness; Denies Weight Loss
Respiratory: Reports Cough and Trouble Breathing
Cardiac: Denies Chest Pain
GI: Reports Diarrhea
Musculoskeletal: Denies Joint Pain or Arthralgias
Neuro: Denies Dizzy, Headache, Ataxia or Lightheadedness
Physical Exam
-
General: Well Developed, Well Nourished and No Apparent Distress
HEENT: Negative Jaundice
Cardiology: Normal Sinus Rhythm
Pulmonary: Rhonchi
GI: Soft; Negative Distended
Musculoskeletal: No Clubbing and No Edema
Neurology: Non Focal
Hematologic / Lymphatic: No Lymphadenopathy
Psych: Calm
Labs
Lab Results
WBC 17.4 10^3/uL (4.8-10.8) H 08/01/24 06:39
RBC 4.61 10^6/uL (4.70-6.10) L 08/01/24 06:39
Hgb 13.3 g/dL (13.0-18.0) 08/01/24 06:39
Hct 39.8 % (39.0-52.0) 08/01/24 06:39
MCV 86.3 fL (80.0-94.0) 08/01/24 06:39
MCH 28.9 pg (27.0-31.0) 08/01/24 06:39
MCHC 33.4 g/dL (33.0-37.0) 08/01/24 06:39
RDW 14.7 % (11.5-14.5) H 08/01/24 06:39
Plt Count 133 10^3/uL (130-400) 08/01/24 06:39
MPV 11.0 fL (7.4-10.4) H 08/01/24 06:39
Abs Immat Gran (auto) 0.1 10^3/uL (0-0.05) H 08/01/24 06:39
Absolute Neuts (auto) 15.3 10^3/uL (1.4-6.5) H 08/01/24 06:39
Absolute Lymphs (auto) 1.1 10^3/uL (1.2-3.4) L 08/01/24 06:39
Absolute Monos (auto) 0.8 10^3/uL (0.1-0.6) H 08/01/24 06:39
Absolute Eos (auto) 0.0 10^3/uL (0-0.7) 08/01/24 06:39
Absolute Basos (auto) 0.0 10^3/uL (0-0.2) 08/01/24 06:39
Immature Gran % 0.7 % (0-0.5) H 08/01/24 06:39
Neutrophils % 88.3 % (42.2-75.2) H 08/01/24 06:39
Lymphocytes % 6.4 % (20.5-51.1) L 08/01/24 06:39
Monocytes % 4.5 % (1.7-9.3) 08/01/24 06:39
Eosinophils % 0.0 % (0-6) 08/01/24 06:39
Basophils % 0.1 % (0-2) 08/01/24 06:39
Creatinine 1.3 mg/dL (0.7-1.3) 08/01/24 06:39
Vital Signs
Vital Signs
Temp Pulse Resp BP Pulse Ox
97.5 F 52 20 149/68 97
08/01/24 12:02 08/01/24 12:02 08/01/24 12:02 08/01/24 12:02 08/01/24 12:02
[2024-08-01] MEDS: NSS 1000 IV (13:01)
[2024-08-01] MEDS: NSS (PRESERVATIVE FREE) 0.5 ML IV (14:53)
[2024-08-01] MEDS: ATIVAN 1 MG IV (14:53)
[2024-08-01] MEDS: DUONEB INH (16:00)
[2024-08-01 16:52] VITALS: BP 157/83
[2024-08-01] MEDS: LIPITOR 10 MG PO (17:51)
[2024-08-01] MEDS: CARDURA 8 MG PO (17:51)
[2024-08-01] MEDS: PROSCAR 5 MG PO (17:56)
[2024-08-01] MEDS: TOPROL XL PO (18:02)
[2024-08-01 19:35] VITALS: BP 147/73
[2024-08-01 23:25] VITALS: BP 120/69
[2024-08-02 03:12] VITALS: BP 142/57
[2024-08-02] MEDS: NSS IV (05:00)
[2024-08-02 06:00] VITALS: BMI 28.6
--- NOTE | 2024-08-02 06:25 | W.PN.ONC2 ---
Today's Communication / Plan
-
Set up IR liver biopsy next week.
Impression
Impression
- liver lesions on CT
- influenzae A with worsening SOB
- lung nodules
Plan
Plan
- CT A/P noting two hypodense lesions in liver measuring 2.5 and 6.5 cm. DDX: neoplasm vs. abscess vs. benign lesions. No obvious other site of malignancy in A/P. Colon and prostate cancer screening up to date. MRI done is still non diagnostic for
abscess vs neoplasm. As recommended, needs IR for biopsy.
Chest CT suggestive of benign lung nodules per report.
Remains on Vanco + Ceftriaxone Abx with negative blood cultures.
Subjective/Objective
Chief Complaint
ACS Heme Onc
Subjective
No complaints. No further fevers.
Vital Signs:
Vital Signs
Temp Pulse Resp BP Pulse Ox
97.5 F 45 20 142/57 95
08/02/24 03:12 08/02/24 03:12 08/02/24 03:12 08/02/24 03:12 08/02/24 03:12
Lab Results:
Laboratory Data
WBC 17.4 10^3/uL (4.8-10.8) H 08/01/24 06:39
Hgb 13.3 g/dL (13.0-18.0) 08/01/24 06:39
Plt Count 133 10^3/uL (130-400) 08/01/24 06:39
eGFR 58.01 08/01/24 06:39
MRI
IMPRESSION:
Complex multiseptated mass in the central liver measuring 6.5 cm with a smaller adjacent satellite lesion further superiorly measuring 2.0 cm. Primary considerations would include necrotic malignant masses versus hepatic abscesses. Unfortunately,
more definitive characterization is difficult due to the degree of motion artifact on this exam. Percutaneous sampling would be suggested for a more definitive diagnosis.
Electronically signed by Roberto Watson, 08/01/2024 5:[address] CHEST
Stable well-defined peripheral nodules within the left lung, suggesting benign pulmonary nodules. Consideration for follow-up low-dose screening CT in February 2025.
Multiple small nodular branching opacities within both lower lobes, new from prior examination, and likely small airway pneumonitis.
No evidence for lung mass that would suggest carcinoma.
Physical Exam
HEENT: No Jaundice
Cardiology: S1 and S2
Pulmonary: Clear
GI: Soft
Extremities: No C/C/E
[2024-08-02 07:00] VITALS: BP 174/75
[2024-08-02] MEDS: DUONEB 3 ML INH ×2 (07:13→11:24)
[2024-08-02] MEDS: ROCEPHIN 1000 MG IV (08:12)
[2024-08-02] MEDS: DELTASONE 40 MG PO (08:12)
[2024-08-02] MEDS: STERILE WATER FOR INJECTION 10 ML IV (08:13)
[2024-08-02] MEDS: VITAMIN B-12 100 MCG PO (08:13)
[2024-08-02] MEDS: LOW STRENGTH ASPIRIN 81 MG PO (08:13)
[2024-08-02] MEDS: NICODERM TRANSDERMAL 14 MG TRANSDERM (08:13)
[2024-08-02] MEDS: HEPARIN SC ×2 (08:24→20:43)
[2024-08-02 09:34] LABS: INR 1.07; PT 14.2 Sec (11.4-14.6)
[2024-08-02 09:35] LABS: APTT 31.7 Sec (23.4-35.0)
[2024-08-02 09:48] LABS: Vancomycin Random 5.6 ug/ml
[2024-08-02 09:54] LABS: % Basophils 0.1 % (0-2); % Eosinophils 0.1 % (0-6); % Immature Granulocytes 0.8 % (0-0.5); % Lymphocytes 11.6 % (20.5-51.1); % Monocytes 5.8 % (1.7-9.3); % Neutrophils 81.6 % (42.2-75.2); Absolute Immature Granulocytes 0.1 10^3/uL (0-0.05); Absolute Lymphocytes 1.7 10^3/uL (1.2-3.4); Absolute Monocytes 0.8 10^3/uL (0.1-0.6); Absolute Neutrophils 11.7 10^3/uL (1.4-6.5); Hematocrit 39.2 % (39.0-52.0); Hemoglobin 13.2 g/dL (13.0-18.0); Mean Corp Hgb Conc. 33.7 g/dL (33.0-37.0); Mean Corpuscular Hgb 28.5 pg (27.0-31.0); Mean Corpuscular Volume 84.7 fL (80.0-94.0); Mean Platelet Volume 11.1 fL (7.4-10.4); Nucleated Red Blood Cells % 0 % (-); Platelet Count 151 10^3/uL (130-400); Red Blood Cell Count 4.63 10^6/uL (4.70-6.10); Red Cell Dist. Width 14.5 % (11.5-14.5); White Blood Cell Count 14.3 10^3/uL (4.8-10.8)
[2024-08-02 10:33] LABS: ALT (SGPT) 76 U/L (0-50); AST (SGOT) 46 U/L (17-59); Alkaline Phosphatase 67 U/L (38-126); Blood Urea Nitrogen 34 mg/dl (9-20); Calcium 8.8 mg/dl (8.4-10.2); Carbon Dioxide 23 mmol/L (22-30); Chloride 108 mmol/L (98-107); Estimated Creatinine Clearance 66 ml/min; Glucose 124 mg/dl (70-99); Magnesium 2.2 mg/dl (1.6-2.3); Phosphorus 3.1 mg/dl (2.5-4.5); Potassium 3.7 mmol/L (3.5-5.1); Sodium 140 mmol/L (135-145); Total Bilirubin 0.5 mg/dl (0.2-1.3); Total Protein 5.9 g/dl (6.3-8.2); eGFR > 60.00
[2024-08-02 11:30] VITALS: BP 149/60
--- NOTE | 2024-08-02 13:57 | W.PN.HOSP.TC ---
Today's Communication/Plan
-
Assessment / Plan
Assessment / Plan
Gen-AAOx3, NAD
HEENT-NC, AT, anicteric, clear oral mm
CV-regular rhythm, slightly bradycardic with heart rate around 50
Lungs-symmetric chest rise, no increased work of breathing
Abd-soft, NT, ND
Musculoskeletal-no edema, no deformity
Skin-dry, no ulcers
Neuro-grossly non-focal, no tremor
Psych-calm, cooperative
Mr. Cosby is a 73-year-old male with a medical history of hypertension, CKD stage IIIb, abdominal aortic aneurysm (status post repair 2018), current smoker, and COPD with chronic cough who presented with fevers, rigors, and sporadic hiccups.
He was recently discharged on 07/29 after treatment for respiratory symptoms in the setting of acute influenza infection. He developed fevers and rigors in his PCPs office and so was sent back to to the ED for further evaluation. He has been
saturating appropriately on low-flow nasal cannula and intermittently on room air. He now has a significant leukocytosis of 17,000 which is likely at least in part due to recent steroid use. Chest imaging was unremarkable. CT abdomen pelvis
showed intrahepatic space-occupying lesions highly suspicious for neoplasm. He has been started on broad-spectrum antibiotics and admitted for further evaluation management of sepsis secondary to pneumonia.
Sepsis secondary to pneumonia:
-Presented with fever and leukocytosis
-No obvious consolidations on lung imaging although he recently tested positive for influenza A
-Started on broad-spectrum antibiotics and coverage for atypicals
-Strep pneumo and Legionella urinary antigens negative so discontinued azithromycin
-MRSA screen negative so discontinued vancomycin
-Continue antibiotic coverage with ceftriaxone
-Supplemental oxygen as needed
-Continue prednisone for mild bronchospasm
-Follow cultures which are negative to date
-Continue nebulizers
Liver masses:
-Suspicious masses in the liver incidentally noted on CT imaging
-MRI showed complex multiseptated mass in the central liver measuring 6.5 cm with a smaller adjacent satellite lesion further superior measuring 2.0 cm, possibly necrotic malignant mass versus hepatic abscess
-Mild transaminitis possibly due to liver masses, improved today
-Heme-onc following, will tentatively plan for IR guided biopsy on Friday 08/04
-Continuing antibiotics with ceftriaxone considering possibility of hepatic abscess
Lung nodules:
-PCP had been planning CT chest to follow-up on abnormal nodules noted on screening CT considering smoking history
-Completed CT chest here which showed stable ill-defined peripheral nodules within the left lung suggesting they are benign
-Recommend follow-up low-dose CT screening February 2025
SARITA on CKD stage IIIb:
-Resolved, appears close to baseline renal function
-Restarting home lisinopril at reduced dose of 10 mg daily for now, holding home chlorthalidone and can restart as needed
Hypertension:
-Continue metoprolol succinate
-Restarting home lisinopril at reduced dose of 10 mg daily for now since renal function has stabilized, holding home chlorthalidone and can restart as needed
Enlarged prostate:
-Also history of stage I prostate cancer being monitored
-Continue dutasteride
Tobacco abuse:
-Current smoker
-Continue to encourage cessation, nicotine patch provided
CODE STATUS: Full code
Anticipated Discharge: > 48 hours
Subjective/Interval History
-
Date of Service: August 02, 2024
Patient was seen and examined at bedside this morning. Family present. Relatively comfortable. Planning IR liver biopsy on Sunday.
Objective Data
-
Labs:
Laboratory Results
08/02/24
08:41
WBC 14.3 H
Hgb 13.2
Hct 39.2
Plt Count 151
PT 14.2
INR 1.07
APTT 31.7
Sodium 140
Potassium 3.7
Chloride 108 H
Carbon Dioxide 23
BUN 34 H
Creatinine 1.1
Glucose 124 H
Calcium 8.8
Total Bilirubin 0.5
AST 46
ALT 76 H
Alkaline Phosphatase 67
Vital Signs:
Vital Signs
Temp Pulse Resp BP Pulse Ox
97.5 F 47 17 149/60 96
08/02/24 11:30 08/02/24 11:30 08/02/24 11:30 08/02/24 11:30 08/02/24 11:30
I&O
08/01/24 08/02/24 08/03/24
06:59 06:59 06:59
Intake Total 1080 / 1080 1770 / 1770
Output Total 625 / 625 1850 / 1850
Balance 455 / 455 -80 / -80
Review of Systems
-
History Source: Patient
All other systems: Reviewed and negative
Respiratory: Reports Cough
Physical Exam
-
General: No Apparent Distress
[2024-08-02] MEDS: APRESOLINE 10 MG IV (15:22)
[2024-08-02 15:29] VITALS: BP 178/66
[2024-08-02 16:16] VITALS: BP 146/58
[2024-08-02] MEDS: LIPITOR 10 MG PO (17:07)
[2024-08-02] MEDS: CARDURA 8 MG PO (17:08)
[2024-08-02] MEDS: TOPROL XL PO ×2 (17:08→18:45)
[2024-08-02] MEDS: PROSCAR 5 MG PO (17:08)
[2024-08-02 19:06] VITALS: BP 163/68
[2024-08-03] VITALS (7 sets, daily range): BP systolic 153–178; BP diastolic 61–89; BMI 27.9
[2024-08-03 07:07] LABS: % Basophils 0.3 % (0-2); % Eosinophils 0.3 % (0-6); % Immature Granulocytes 1.9 % (0-0.5); % Lymphocytes 16.8 % (20.5-51.1); % Monocytes 6.4 % (1.7-9.3); % Neutrophils 74.3 % (42.2-75.2); Absolute Immature Granulocytes 0.3 10^3/uL (0-0.05); Absolute Lymphocytes 2.3 10^3/uL (1.2-3.4); Absolute Monocytes 0.9 10^3/uL (0.1-0.6); Hematocrit 40.8 % (39.0-52.0); Hemoglobin 13.7 g/dL (13.0-18.0); Mean Corp Hgb Conc. 33.6 g/dL (33.0-37.0); Mean Corpuscular Hgb 28.4 pg (27.0-31.0); Mean Corpuscular Volume 84.6 fL (80.0-94.0); Mean Platelet Volume 10.4 fL (7.4-10.4); Nucleated Red Blood Cells % 0 % (-); Platelet Count 162 10^3/uL (130-400); Red Blood Cell Count 4.82 10^6/uL (4.70-6.10); Red Cell Dist. Width 14.1 % (11.5-14.5); White Blood Cell Count 13.4 10^3/uL (4.8-10.8)
[2024-08-03 07:14] LABS: PT 13.5 Sec (11.4-14.6)
[2024-08-03 07:15] LABS: APTT 30.7 Sec (23.4-35.0)
[2024-08-03 07:41] LABS: ALT (SGPT) 80 U/L (0-50); AST (SGOT) 43 U/L (17-59); Albumin 3.1 g/dl (3.5-5.0); Alkaline Phosphatase 64 U/L (38-126); Blood Urea Nitrogen 31 mg/dl (9-20); Calcium 9.2 mg/dl (8.4-10.2); Carbon Dioxide 26 mmol/L (22-30); Chloride 106 mmol/L (98-107); Estimated Creatinine Clearance 66 ml/min; Glucose 100 mg/dl (70-99); Magnesium 1.9 mg/dl (1.6-2.3); Potassium 3.8 mmol/L (3.5-5.1); Sodium 140 mmol/L (135-145); Total Bilirubin 0.6 mg/dl (0.2-1.3); Total Protein 6.1 g/dl (6.3-8.2); eGFR > 60.00
[2024-08-03] MEDS: LOW STRENGTH ASPIRIN 81 MG PO (08:54)
[2024-08-03] MEDS: ZESTRIL 10 MG PO (08:56)
[2024-08-03] MEDS: DELTASONE 40 MG PO (08:56)
[2024-08-03] MEDS: HEPARIN SC ×3 (08:57→19:36)
[2024-08-03] MEDS: NICODERM TRANSDERMAL 14 MG TRANSDERM (08:57)
[2024-08-03] MEDS: VITAMIN B-12 100 MCG PO (08:57)
[2024-08-03] MEDS: STERILE WATER FOR INJECTION 10 ML IV (08:58)
[2024-08-03] MEDS: ROCEPHIN 1000 MG IV (08:58)
[2024-08-03] MEDS: MUCINEX 1200 MG PO ×2 (10:07→19:39)
[2024-08-03] MEDS: APRESOLINE 10 MG IV ×2 (10:58→19:39)
[2024-08-03] MEDS: OCEAN, SALINE MIST 2 SPRAYS NASAL (10:59)
--- NOTE | 2024-08-03 13:29 | W.PN.HOSP.TC ---
Today's Communication/Plan
-
Assessment / Plan
Assessment / Plan
Gen-AAOx3, NAD
HEENT-NC, AT, anicteric, clear oral mm
CV-regular rhythm, controlled HR around 65
Lungs-symmetric chest rise, no increased work of breathing
Abd-soft, NT, ND
Musculoskeletal-no edema, no deformity
Skin-dry, no ulcers
Neuro-grossly non-focal, no tremor
Psych-calm, cooperative
Mr. Cosby is a 73-year-old male with a medical history of hypertension, CKD stage IIIb, abdominal aortic aneurysm (status post repair 2018), current smoker, and COPD with chronic cough who presented with fevers, rigors, and sporadic hiccups.
He was recently discharged on 07/29 after treatment for respiratory symptoms in the setting of acute influenza infection. He developed fevers and rigors in his PCPs office and so was sent back to to the ED for further evaluation. He has been
saturating appropriately on low-flow nasal cannula and intermittently on room air. He now has a significant leukocytosis of 17,000 which is likely at least in part due to recent steroid use. Chest imaging was unremarkable. CT abdomen pelvis
showed intrahepatic space-occupying lesions highly suspicious for neoplasm. He has been started on broad-spectrum antibiotics and admitted for further evaluation management of sepsis secondary to pneumonia.
Sepsis secondary to pneumonia:
-Presented with fever and leukocytosis
-No obvious consolidations on lung imaging although he recently tested positive for influenza A
-Continue antibiotic coverage with ceftriaxone
-Supplemental oxygen as needed, currently saturating properly on room air
-Continue prednisone for mild bronchospasm, titrated down to 20 mg daily
-Follow cultures which are negative to date
-Continue nebulizers as needed
Liver masses:
-Suspicious masses in the liver incidentally noted on CT imaging
-MRI showed complex multiseptated mass in the central liver measuring 6.5 cm with a smaller adjacent satellite lesion further superior measuring 2.0 cm, possibly necrotic malignant mass versus hepatic abscess
-Mild transaminitis possibly due to liver masses, improved today
-Heme-onc following, will tentatively plan for IR guided biopsy on Friday 08/04
-Continuing antibiotics with ceftriaxone considering possibility of hepatic abscess
Lung nodules:
-PCP had been planning CT chest to follow-up on abnormal nodules noted on screening CT considering smoking history
-Completed CT chest here which showed stable ill-defined peripheral nodules within the left lung suggesting they are benign
-Recommend follow-up low-dose CT screening February 2025
SARITA on CKD stage IIIb:
-Resolved, appears close to baseline renal function
-Restarted home lisinopril at reduced dose of 10 mg daily which we will increase back to 20 now, also restarting home chlorthalidone
Hypertension:
-Continue metoprolol succinate
-Restarting home lisinopril at reduced dose of 10 mg daily for now since renal function has stabilized, holding home chlorthalidone and can restart as needed
Enlarged prostate:
-Also history of stage I prostate cancer being monitored
-Continue dutasteride
Tobacco abuse:
-Current smoker
-Continue to encourage cessation, nicotine patch provided
CODE STATUS: Full code
Anticipated Discharge: 24 - 48 hours
Subjective/Interval History
-
Date of Service: August 03, 2024
Patient was seen and examined at bedside this morning. No longer bradycardic. Is now moderately hypertensive and have restarted home antihypertensive agents.
Objective Data
-
Labs:
Laboratory Results
08/03/24
06:54
WBC 13.4 H
Hgb 13.7
Hct 40.8
Plt Count 162
PT 13.5
INR 1.00
APTT 30.7
Sodium 140
Potassium 3.8
Chloride 106
Carbon Dioxide 26
BUN 31 H
Creatinine 1.1
Glucose 100 H
Calcium 9.2
Total Bilirubin 0.6
AST 43
ALT 80 H
Alkaline Phosphatase 64
Vital Signs:
Vital Signs
Temp Pulse Resp BP Pulse Ox
98.5 F 87 18 178/89 92
08/03/24 11:01 08/03/24 11:01 08/03/24 11:01 08/03/24 11:01 08/03/24 11:01
I&O
08/02/24 08/03/24 08/04/24
06:59 06:59 06:59
Intake Total 1770 / 1770 1020 / 1020
Output Total 1850 / 1850 1150 / 1150
Balance -80 / -80 -130 / -130
Review of Systems
-
History Source: Patient
All other systems: Reviewed and negative
Respiratory: Reports Cough
Physical Exam
-
General: No Apparent Distress
[2024-08-03] MEDS: Hygroton 12.5 MG PO (14:29)
[2024-08-03] MEDS: LIPITOR 10 MG PO (17:09)
[2024-08-03] MEDS: PROSCAR 5 MG PO (17:10)
[2024-08-03] MEDS: CARDURA 8 MG PO (17:10)
[2024-08-03] MEDS: TOPROL XL 25 MG PO (17:14)
[2024-08-03] MEDS: FLUSH (NSS) 4 FLUSH IV (19:40)
[2024-08-03] MEDS: DUONEB 3 ML INH (21:10)
--- NOTE | 2024-08-03 22:32 | PTCARENOTE ---
episode of severe dyspnea- rhonchi wheezes and sat was 93% on room air- R.T. notified fro prn neb- good effect- pt currently w/out distress
[2024-08-04 03:06] VITALS: BP 165/79
[2024-08-04 05:01] VITALS: BMI 27.4
--- NOTE | 2024-08-04 06:08 | PTCARENOTE ---
pt has been npo in anticipation of IRAD procedure. prn hydralazine given x1
[2024-08-04 07:33] VITALS: BP 144/73
[2024-08-04] MEDS: MUCINEX 1200 MG PO (08:04)
[2024-08-04] MEDS: ZESTRIL 20 MG PO (08:04)
[2024-08-04] MEDS: Hygroton 12.5 MG PO (08:04)
[2024-08-04] MEDS: LOW STRENGTH ASPIRIN 81 MG PO (08:04)
[2024-08-04] MEDS: VITAMIN B-12 100 MCG PO (08:05)
[2024-08-04] MEDS: DELTASONE 20 MG PO (08:05)
[2024-08-04] MEDS: HEPARIN SC (08:06)
[2024-08-04] MEDS: NICODERM TRANSDERMAL 14 MG TRANSDERM (08:06)
[2024-08-04] MEDS: STERILE WATER FOR INJECTION 10 ML IV (08:06)
[2024-08-04] MEDS: ROCEPHIN 1000 MG IV (08:06)
[2024-08-04 09:40] LABS: % Basophils 0.3 % (0-2); % Eosinophils 0.4 % (0-6); % Immature Granulocytes 2.6 % (0-0.5); % Lymphocytes 18.6 % (20.5-51.1); % Monocytes 8.5 % (1.7-9.3); % Neutrophils 69.6 % (42.2-75.2); Absolute Eosinophils 0.1 10^3/uL (0-0.7); Absolute Immature Granulocytes 0.3 10^3/uL (0-0.05); Absolute Lymphocytes 2.4 10^3/uL (1.2-3.4); Absolute Monocytes 1.1 10^3/uL (0.1-0.6); Absolute Neutrophils 9.2 10^3/uL (1.4-6.5); Hematocrit 44.5 % (39.0-52.0); Hemoglobin 15.4 g/dL (13.0-18.0); Mean Corp Hgb Conc. 34.6 g/dL (33.0-37.0); Mean Corpuscular Hgb 28.7 pg (27.0-31.0); Mean Platelet Volume 10.6 fL (7.4-10.4); Nucleated Red Blood Cells % 0 % (-); Platelet Count 203 10^3/uL (130-400); Red Blood Cell Count 5.36 10^6/uL (4.70-6.10); Red Cell Dist. Width 14.3 % (11.5-14.5); White Blood Cell Count 13.2 10^3/uL (4.8-10.8)
--- NOTE | 2024-08-04 10:19 | W.PN.UPDATE ---
Update Note
Progress Note Update
- IR asked for biopsy versus drainage of low attenuation hepatic lesion
- Pt received 81mg ASA over weekend and this morning. SIR guidelines recommend 3-5 day hold if possible.
- Appears to be clinically stable. Will place patient on schedule for Sunday. Apologies for the delay.
[2024-08-04 10:20] LABS: Magnesium 2.1 mg/dl (1.6-2.3)
[2024-08-04 11:19] VITALS: BP 153/69
--- NOTE | 2024-08-04 11:48 | W.PN.HOSP.TC ---
Addendum entered and electronically signed by Patsy Zavala MD 08/04/24 13:35:
total DC time 37 min
Original Note:
Today's Communication/Plan
-
see A/P
Assessment / Plan
Assessment / Plan
Mr. Cosby is a 73-year-old male with a medical history of hypertension, CKD stage IIIb, abdominal aortic aneurysm (status post repair 2018), current smoker, and COPD with chronic cough who presented with fevers, rigors, and sporadic hiccups.
He was recently discharged on 07/29 after treatment for respiratory symptoms in the setting of acute influenza infection. He developed fevers and rigors in his PCPs office and so was sent back to to the ED for further evaluation. He has been
saturating appropriately on low-flow nasal cannula and intermittently on room air. He now has a significant leukocytosis of 17,000 which is likely at least in part due to recent steroid use. Chest imaging was unremarkable. CT abdomen pelvis
showed intrahepatic space-occupying lesions highly suspicious for neoplasm. He has been started on broad-spectrum antibiotics and admitted for further evaluation management of sepsis secondary to pneumonia.
A/P:
# Sepsis (Presented with fever and leukocytosis) POA likely secondary to CAP
No obvious consolidations on lung imaging although he recently tested positive for influenza A
MRSA screen negative, urine Strep and Legionella negative
s/p antibiotic coverage with cefepime/ceftriaxone x5 days
Supplemental oxygen as needed, currently saturating properly on room air
Continue prednisone for mild bronchospasm, titrated down to 20 mg daily
Continue nebulizers as needed
# Liver masses:
Suspicious masses in the liver incidentally noted on CT imaging
MRI showed complex multiseptated mass in the central liver measuring 6.5 cm with a smaller adjacent satellite lesion further superior measuring 2.0 cm, possibly necrotic malignant mass versus hepatic abscess
Mild transaminitis possibly due to liver masses
Heme-onc following
was tentatively planned for IR guided biopsy on Friday 08/04, but procedure aborted as pt on ASA
Holding ASA for now until liver biopsy
# Lung nodules:
PCP had been planning CT chest to follow-up on abnormal nodules noted on screening CT considering smoking history
Completed CT chest here which showed stable ill-defined peripheral nodules within the left lung suggesting they are benign
Recommend follow-up low-dose CT screening February 2025
# SARITA on CKD stage IIIb:
SARITA resolved, appears close to baseline renal function
Restarted home lisinopril 20 mg, also restarting home chlorthalidone
# Hypertension:
Continue metoprolol succinate, lisinopril 20 mg, chlorthalidone 12.5 mg
# Enlarged prostate:
Also history of stage I prostate cancer being monitored
Continue dutasteride
# Tobacco abuse:
Current smoker
Continue to encourage cessation, nicotine patch provided
CODE STATUS: Full code
DW IR
DW RN
DW at bedside
total time spent 51 min
Anticipated Discharge: Today
Subjective/Interval History
-
Date of Service: August 04, 2024
Objective Data
-
Labs:
Laboratory Results
08/04/24
09:19
WBC 13.2 H
Hgb 15.4
Hct 44.5
Plt Count 203 D
Vital Signs:
Vital Signs
Temp Pulse Resp BP Pulse Ox
36.5 C 57 17 153/69 90
08/04/24 11:19 08/04/24 11:19 08/04/24 11:19 08/04/24 11:19 08/04/24 11:19
I&O
08/03/24 08/04/24 08/05/24
06:59 06:59 06:59
Intake Total 1020 / 1020 720 / 720
Output Total 1150 / 1150 850 / 850
Balance -130 / -130 -130 / -130
Review of Systems
-
All other systems: Reviewed and negative
Physical Exam
-
General: Well Developed, Well Nourished, No Apparent Distress, Comfortable and Conversant
Respiratory: Clear to Auscultation and Non Labored Respirations; Negative Accessory Resp Muscle Use
Cardiac: Regular Rhythm and S1/S2
Neuro: Awake and Alert
Psych: Calm and Intact Judgement/Insight
Data Reviewed
-
Diagnostic Radiology: Report Reviewed by me
CT Scan: Report Reviewed by me
Labs: Labs Reviewed by me
--- NOTE | 2024-08-04 12:20 | PTCARENOTE ---
Took patient for walking home O2 test. Walked around unit for several minutes, patient was 90-93% on room air, denies breathing difficulty. MD notified as per request.
--- NOTE | 2024-08-04 13:00 | CM ---
Reviewed the chart notes and spoke with the patient at the bedside. IMM reviewed. CM continues to be available to patient/family and is monitoring medical plan for needs at discharge.
Plan: Discharge to home today. Patient's spouse to transport. No needs.
--- NOTE | 2024-08-04 13:02 | W.DCSUMMARY ---
Discharge Summary
Discharge Data
Date of Admission: 07/31/24
Date of Discharge: 08/04/24
-
Pending Results: No
Hospital Course
Principal Diagnosis:
Sepsis (presented with fever and leukocytosis) likely secondary to community-acquired pneumonia
Suspicious masses in the liver incidentally noted on CT imaging
Acute kidney injury (SARITA) on chronic kidney disease (CKD) stage III
Chronic Diagnoses:�
Hypertension
Enlarged prostate
History of stage I prostate cancer being monitored
Tobacco abuse/current smoker
Stable Lung nodules
Consultations:�
Oncology
Interventional radiology
Procedures:�
None
Clinical course:�
This is a 73-year-old male with past medical history as stated above, who presented with fever and rigor.
Problem 1:
Sepsis (presented with fever and leukocytosis) likely secondary to community-acquired pneumonia.
His CXR noted coarsening of the interstitial markings in both perihilar regions and the lower third of both hemithoraces suggesting interstitial pneumonia.
He can check repeat chest x-ray with his PCP in 4 to 6 weeks.
His MRSA screen was negative, urine Strep and Legionella was negative.
He received IV antibiotic coverage with cefepime followed by ceftriaxone x 5 days while in the hospital.
Walking pulse ox checked prior to discharge showed no hypoxia needing home oxygen therapy.
He was started with prednisone for mild bronchospasm, and he can continue with 20 mg daily x 5 days following discharge.
Problem 2:
Suspicious masses in the liver incidentally noted on CT imaging.
His MRI showed complex multiseptated mass in the central liver measuring 6.5 cm with a smaller adjacent satellite lesion further superior measuring 2.0 cm, possibly necrotic malignant mass versus hepatic abscess.
He was tentatively planned for IR guided biopsy on Friday 08/04, but procedure aborted as pt was on ASA.
He was offered to stay in the hospital for inpatient liver biopsy, however the patient declined to stay in the hospital any longer. He was adamant about discharge.
He can follow-up with IR for liver biopsy as an outpatient
He has been informed to hold aspirin for now until liver biopsy or further instruction from IR.
Problem 3:
SARITA on CKD stage IIIb:
SARITA resolved, appears close to baseline renal function
Restarted home lisinopril 20 mg and home chlorthalidone.
As for the rest of his medical problems, they were stable during his hospital stay.
Discharge Plan
-
Patient Disposition: Home (Routine Discharge)
Discharge Diagnosis/Procedures: Sepsis (Presented with fever and leukocytosis) likely secondary to community acquired pneumonia (completed 5 days antibiotic during hospital stay);
Suspicious liver masses noted on CT imaging (need IR liver biopsy)
Condition: Fair
Diet: As tolerated
Activity: As tolerated
Driving Restrictions: As prior to admission
Blood Work: CBC, CMP within 1 week with your PCP
Others Tests: CXR in 4-6 weeks with your PCP
Referrals:
Gamal Mcdonald Jr., DO [Family Provider] - in less than 1 week
Donald Landry MD [Active] - (call to make appointment for liver biopsy)
Prescriptions:
New
metoprolol succinate 25 mg Tablet Extended Release 24 Hr
25 mg PO QPM Qty: 30 0RF
prednisone 20 mg tablet
20 mg PO DAILY 5 Days Qty: 5 0RF
Continued
cyanocobalamin (vitamin B-12) [Vitamin B-12] 100 mcg Tablet
100 mcg PO DAILY
atorvastatin 10 mg tablet
10 mg PO QPM
chlorthalidone 25 mg tablet
12.5 mg PO DAILY
fenofibrate micronized 67 mg capsule
67 mg PO QPM
doxazosin 8 mg tablet
8 mg PO QPM
dutasteride 0.5 mg capsule
0.5 mg PO QPM
nicotine (polacrilex) 2 mg Gum
2 mg PO Q2HPRN PRN (Reason: craving nicotine) 30 Days Qty: 30 0RF
guaifenesin 600 mg tablet extended release 12hr
600 mg PO [id number] PRN (Reason: cough)
lisinopril 40 mg tablet
20 mg PO QPM
Held
aspirin 81 mg Tablet,Chewable
81 mg PO DAILY
Hold Instructions: Resume on 08/11/24. until liver biopsy
Discontinued
methylprednisolone [Medrol (Steven)] 4 mg tablets,dose pack
See Rx Instructions .ROUTE .COMPLEX Qty: 21 0RF
Rx Instructions:
for 6 days
metoprolol succinate 100 mg Tablet Extended Release 24 Hr
100 mg PO QPM
Discharge Orders:
Discharge Patient (As Directed); Ordered 08/04/24
Ordered By: Patsy Zavala
Discharge Date and Time
Print Language: CYMRAES
== END 2024-08-04 14:25 | disposition home or self-care (01) | DRG 871 ==
LOC: 2 NORTH 19:39
PROVIDERS: Internal Medicine; Physician Assistant; ADMITTING PHYSICIAN Student in an Organized Health Care Education/Training Program; ATTENDING PHYSICIAN Internal Medicine; CONSULT PHYSICIAN Internal Medicine Hematology & Oncology; EMERGENCY PHYSICIAN Emergency Medicine; FAMILY PHYSICIAN Family Medicine
DX: A41.89 Other specified sepsis (principal); J10.08 Influenza due to other identified influenza virus with other specified pneumonia; J96.01 Acute respiratory failure with hypoxia; J15.9 Unspecified bacterial pneumonia; J44.0 Chronic obstructive pulmonary disease with (acute) lower respiratory infection; N17.9 Acute kidney failure, unspecified; I25.10 Atherosclerotic heart disease of native coronary artery without angina pectoris; N18.32 Chronic kidney disease, stage 3b; R16.0 Hepatomegaly, not elsewhere classified; F17.200 Nicotine dependence, unspecified, uncomplicated; I12.9 Hypertensive chronic kidney disease with stage 1 through stage 4 chronic kidney disease, or unspecified chronic kidney disease; C61 Malignant neoplasm of prostate; N20.0 Calculus of kidney; K76.9 Liver disease, unspecified; N28.1 Cyst of kidney, acquired; R05.3 Chronic cough; R74.01 Elevation of levels of liver transaminase levels; K57.30 Diverticulosis of large intestine without perforation or abscess without bleeding; N21.0 Calculus in bladder; N40.0 Benign prostatic hyperplasia without lower urinary tract symptoms; Z86.79 Personal history of other diseases of the circulatory system; Z87.442 Personal history of urinary calculi; Z83.3 Family history of diabetes mellitus; Z82.49 Family history of ischemic heart disease and other diseases of the circulatory system; Z79.82 Long term (current) use of aspirin; Z11.52 Encounter for screening for COVID-19
CPT/HCPCS: 71045; 71046; 71260; 74176; 74183; 80053; 80202; 82248; 82805; 83605; 83735; 84100; 84145; 84484; 85025; 85610; 85730; 86803; 87040; 87449; 87641; 87811; 87899; 94640; 96361; 96374; 99285; 99406; A9575; Q9967

== ENCOUNTER 2024-08-07 10:19 | Emergency (ER) | payer OTHER, SELFPAY ==
[2024-08-07 10:25] VITALS: BP 101/46
--- NOTE | 2024-08-07 11:15 | ED.GENMED ---
History of Present Illness
<Lexie Figueredo PA-C - Last Filed: 08/07/24 17:19>
General
Chief Complaint: Pneumonia Symptoms
Source: patient
Exam Limitations: none
Time Seen by Provider: 08/07/24 11:06
Nursing documentation reviewed up to this point in time: agreed with
History of Present Illness
History of Present Illness:
This is a 73-year-old male with past medical history of abdominal aortic aneurysm, hypertension, hyperlipidemia, COPD who presents emergency department today with concerns of shortness of breath and weakness for the past few days. Of note, patient
was recently discharged on August 04 from the hospital for pneumonia and states that feel like he initially improved for a few days but then 2 days ago, he started feeling very short of breath again. He noticed at home that his home pulse
oximeter read 88% on room air. Patient wears no oxygen at baseline. Patient is never required oxygen at home in the past. He denies any redness or swelling in his legs. He does not take a blood thinner. He denies any chest pain. Denies any
abdominal pain, nausea, vomiting, diarrhea
Review of Systems
<Lexie Figueredo PA-C - Last Filed: 08/07/24 17:19>
Review of Systems
All Other Systems: ROS reviewed and negative except as documented in HPI and ROS
Phy Exam
<Lexie Figueredo PA-C - Last Filed: 08/07/24 17:19>
Physical Exam
Physical Exam:
General: Patient is well appearing and in no acute distress; non-toxic
Skin: Warm and dry, no rashes or lesions
Head: Normocephalic, atraumatic
Eyes: Sclera non-icteric. EOMs intact.
Cardiac: Regular rate and rhythm, no murmurs
Peripheral Vascular: No lower extremity swelling or edema
Pulm: Increased respiratory rate, no wheezes, rales, or rhonchi
Abdomen: No abdominal tenderness to palpation
Neuro: CN II-XII intact, no focal neurologic deficits.
Psychiatric: Appropriate mood and affect.
Course
<Lexie Figueredo PA-C - Last Filed: 08/07/24 17:19>
Orders/Labs/Results
Orders:
Orders
08/07/24 10:29
CR Chest - 2 Views Urgent
Comment:
Reason For Exam: SOB, cough
08/07/24 11:24
Electrocardiogram (*1) Urgent
Reason for Study: Shortness of Breath
CT Chest PE Study Urgent
Comment:
Reason For Exam: hypoxia, shortness of breath
EKG- Treatment ONCE
08/07/24 11:35
Complete Blood Count/With Diff Urgent
Comprehensive Metabolic Panel Urgent
NT-proBNP Urgent
Troponin I Urgent
08/07/24 12:00
Nicotine [Nicoderm Transdermal] 7 mg TRANSDERM DAILY
08/07/24 12:17
0.9% Sodium Chloride 500 ml [Nss] 500 ml IV BOLUS
08/07/24 12:25
Ipratropium/Albuterol Sulfate [Duoneb] 3 ml INH R NOW STA
Abnormal Lab Results
08/07/24
11:35
WBC 14.6 H 10^3/uL
(4.8-10.8)
RDW 14.6 H %
(11.5-14.5)
Abs Immat Gran (auto) 0.3 H 10^3/uL
(0-0.05)
Absolute Neuts (auto) 12.2 H 10^3/uL
(1.4-6.5)
Absolute Lymphs (auto) 1.0 L 10^3/uL
(1.2-3.4)
Absolute Monos (auto) 1.0 H 10^3/uL
(0.1-0.6)
Immature Gran % 2.0 H %
(0-0.5)
Neutrophils % 83.6 H %
(42.2-75.2)
Lymphocytes % 6.7 L %
(20.5-51.1)
BUN 37 H mg/dl
(9-20)
Creatinine 1.6 H mg/dL
(0.7-1.3)
Glucose 149 H mg/dl
(70-99)
Total Bilirubin 1.5 H mg/dl
(0.2-1.3)
ALT 83 H U/L
(0-50)
Albumin 3.4 L g/dl
(3.5-5.0)
08/07/24 11:35
08/07/24 11:35
Vital Signs
Initial and Last Documented VS:
Initial Vital Signs
Temp Pulse Resp BP Pulse Ox
97.4 F 73 18 101/46 93
08/07/24 10:25 08/07/24 10:25 08/07/24 10:25 08/07/24 10:25 08/07/24 10:25
Last Documented Vital Signs
Temp Pulse Resp BP Pulse Ox
97.4 F 56 21 130/63 95
08/07/24 10:25 08/07/24 13:00 08/07/24 13:00 08/07/24 13:22 08/07/24 13:45
<Mark Briggs MD - Last Filed: 08/07/24 12:29>
Orders/Labs/Results
Orders:
Orders
08/07/24 10:29
CR Chest - 2 Views Urgent
Comment:
Reason For Exam: SOB, cough
08/07/24 11:24
Electrocardiogram (*1) Urgent
Reason for Study: Shortness of Breath
CT Chest PE Study Urgent
Comment:
Reason For Exam: hypoxia, shortness of breath
EKG- Treatment ONCE
08/07/24 11:35
Complete Blood Count/With Diff Urgent
Comprehensive Metabolic Panel Urgent
NT-proBNP Urgent
Troponin I Urgent
08/07/24 12:00
Nicotine [Nicoderm Transdermal] 7 mg TRANSDERM DAILY
08/07/24 12:17
0.9% Sodium Chloride 500 ml [Nss] 500 ml IV BOLUS
08/07/24 12:25
Ipratropium/Albuterol Sulfate [Duoneb] 3 ml INH R NOW STA
Abnormal Lab Results
08/07/24
11:35
WBC 14.6 H 10^3/uL
(4.8-10.8)
RDW 14.6 H %
(11.5-14.5)
Abs Immat Gran (auto) 0.3 H 10^3/uL
(0-0.05)
Absolute Neuts (auto) 12.2 H 10^3/uL
(1.4-6.5)
Absolute Lymphs (auto) 1.0 L 10^3/uL
(1.2-3.4)
Absolute Monos (auto) 1.0 H 10^3/uL
(0.1-0.6)
Immature Gran % 2.0 H %
(0-0.5)
Neutrophils % 83.6 H %
(42.2-75.2)
Lymphocytes % 6.7 L %
(20.5-51.1)
BUN 37 H mg/dl
(9-20)
Creatinine 1.6 H mg/dL
(0.7-1.3)
Glucose 149 H mg/dl
(70-99)
Total Bilirubin 1.5 H mg/dl
(0.2-1.3)
ALT 83 H U/L
(0-50)
Albumin 3.4 L g/dl
(3.5-5.0)
08/07/24 11:35
08/07/24 11:35
Vital Signs
Initial and Last Documented VS:
Initial Vital Signs
Temp Pulse Resp BP Pulse Ox
97.4 F 73 18 101/46 93
08/07/24 10:25 08/07/24 10:25 08/07/24 10:25 08/07/24 10:25 08/07/24 10:25
Last Documented Vital Signs
Temp Pulse Resp BP Pulse Ox
97.4 F 56 21 130/63 95
08/07/24 10:25 08/07/24 13:00 08/07/24 13:00 08/07/24 13:22 08/07/24 13:45
[place];Lexie Figueredo PA-C - Last Filed: 08/07/24 17:19>
MDM/Problems Addressed
Differential Diagnosis Includes:
Differentials include pulmonary embolism, worsening pneumonia, sepsis, progressive COPD, arrhythmia
MDM/Problems Addressed:
73-year-old male with past medical history of COPD, hyperlipidemia, diabetes presents emergency department today with concerns of shortness of breath and weakness. He noted that his home pulse ox was 88% to 91%. Patient states that he feels like
he never improved after being discharged from the hospital a few days ago. He denies any increased sputum production. He denies any hemoptysis. He denies any redness or swelling in his legs. He does not take a blood thinner. Patient does not
use oxygen at home. In light of new onset hypoxia patient was sent for CT scan to rule out pulmonary embolism which was negative. This also showed no evidence of pneumonia. Patient was 90% on room air in emergency department he was placed on 3 L.
He also was given DuoNeb treatments. He was weaned off on oxygen and he ambulated throughout the emergency department and during ambulation he was 95% on room air. Patient states that he has a liver biopsy tomorrow for liver lesions, this could
potentially explain elevated bilirubin seen today. Also mild SARITA noted, patient was given IV fluids. Patient states that he is feeling much better. Patient stable for discharge. Discussed follow-up with pulmonology.
Chronic conditions affecting care:
Hypertension, hyperlipidemia
<Lexie Figueredo PA-C - Last Filed: 08/07/24 17:19>
*Pulse Oximetry
Patient hypoxic: no
*Critical Care Note
Total Time (30-74mins, 75-104mins- exclusive of procedures): Not Applicable
Data Reviewed
Review of Other/Old Records Reveals: Records (Reviewed discharge summary from 08/04/2024 patient seen for cough and sepsis linked to influenza and community-acquired pneumonia)
Source: patient and records
ED Attending Note
<Lexie Figueredo PA-C - Last Filed: 08/07/24 17:19>
-
Portions of this chart may have been created with voice recognition software.� Occasional wrong word or��sound alike� substitutions may have occurred due to the inherent limitations of voice recognition software.
<Mark Briggs MD - Last Filed: 08/07/24 12:29>
ED Attending Note
Patient seen and examined by attending physician: Yes
I performed the substantive portion of visit, reviewed & personally made and approve the management plan that is documented in note by myself or BHASKAR.: Yes
ED Attending Note:
Patient with ongoing mild shortness of breath. Borderline pulse oxes at home. Discharged 3 days ago. Currently on steroid taper. No antibiotics at this time. Did a full course of azithromycin. No pleuritic pain no hemoptysis no other
complaints.
On exam patient is nontoxic in no distress. He is very minimally tachypneic with speaking. Slight decreased breath sounds diffusely. Dry crackles in the bases. No wheezing or rhonchi. Regular rate and rhythm. Warm and dry. Perfusing well.
Previous records were reviewed.
Probable chemo acquired pneumonia. Suspicious mass by CT. We will get a CT of the chest to rule out pulmonary emboli. DuoNeb. Further care to follow
Discharge Plan
Departure
Patient Disposition: Home (Routine Discharge)
Date of Disposition: 08/07/24
Time of Disposition: 14:14
Patient with high blood pressure during this ER visit?: No
Condition: Good
Discharge Problem:
Shortness of breath
Instructions: Shortness of Breath (Dyspnea) (DC), BLOOD PRESSURE
Prescriptions:
New
albuterol sulfate 1.25 mg/3 mL solution for nebulization
1.25 mg inhalation Q4H Qty: 75 0RF
No Action
cyanocobalamin (vitamin B-12) [Vitamin B-12] 100 mcg Tablet
100 mcg PO DAILY
atorvastatin 10 mg tablet
10 mg PO QPM
chlorthalidone 25 mg tablet
12.5 mg PO DAILY
fenofibrate micronized 67 mg capsule
67 mg PO QPM
doxazosin 8 mg tablet
8 mg PO QPM
aspirin 81 mg Tablet,Chewable
81 mg PO DAILY
dutasteride 0.5 mg capsule
0.5 mg PO QPM
nicotine (polacrilex) 2 mg Gum
2 mg PO Q2HPRN PRN (Reason: craving nicotine) 30 Days Qty: 30 0RF
guaifenesin 600 mg tablet extended release 12hr
600 mg PO [id number] PRN (Reason: cough)
lisinopril 40 mg tablet
20 mg PO QPM
prednisone 20 mg tablet
20 mg PO DAILY 5 Days Qty: 5 0RF
metoprolol succinate 25 mg tablet extended release 24 hr
100 mg PO QPM
Referrals:
Gamal Mcdonald Jr., DO [Family Provider] -
Jose Alejandro Ramos MD [Active] - Call in 1-3 days for appt
Activity Restrictions/Additional Instructions:
Albuterol nebs have been sent to your pharmacy to use with your nebulizer machine.
Please follow-up with your PCP on Sunday for your post hospitalization follow up.
Please call the attached number to schedule appointment to see pulmonology.
PLEASE RETURN EMERGENCY DEPARTMENT SHOULD YOU DEVELOP CHEST PAIN, ACUTE WORSENING OF YOUR SYMPTOMS, DIZZINESS, LIGHTHEADEDNESS, FAINTING SPELLS, FEVERS OR CHILLS, OR ANY OTHER SIGNS OR SYMPTOMS WORRISOME TO YOU.
Interventions
Interventions:
*Risk Screen - Suicide Last Done: 08/07/24 10:25
*General Assessment Last Done: 08/07/24 10:25
*Neglect/Abuse Screening Last Done: 08/07/24 11:24
ED- Fall Risk Assessment Last Done: 08/07/24 11:24
*ED COVID-19 Vaccine History Last Done: 08/07/24 10:25
*Nursing Disposition Last Done: 08/07/24 14:39
ED- Cardiac Assessment Last Done: 08/07/24 11:24
ED- Pulmonary Assessment Last Done: 08/07/24 11:24
Discharge Date and Time
Discharge Date/Time: 08/07/24 14:40
Print Language: IRISH
[2024-08-07 11:24] VITALS: BMI 27.7
[2024-08-07 11:46] LABS: % Basophils 0.2 % (0-2); % Eosinophils 0.5 % (0-6); % Lymphocytes 6.7 % (20.5-51.1); % Neutrophils 83.6 % (42.2-75.2); Absolute Eosinophils 0.1 10^3/uL (0-0.7); Absolute Immature Granulocytes 0.3 10^3/uL (0-0.05); Absolute Neutrophils 12.2 10^3/uL (1.4-6.5); Hematocrit 46.4 % (39.0-52.0); Hemoglobin 15.3 g/dL (13.0-18.0); Mean Corpuscular Hgb 28.4 pg (27.0-31.0); Mean Corpuscular Volume 86.2 fL (80.0-94.0); Mean Platelet Volume 9.8 fL (7.4-10.4); Nucleated Red Blood Cells % 0 % (-); Platelet Count 212 10^3/uL (130-400); Red Blood Cell Count 5.38 10^6/uL (4.70-6.10); Red Cell Dist. Width 14.6 % (11.5-14.5); White Blood Cell Count 14.6 10^3/uL (4.8-10.8)
[2024-08-07 12:02] LABS: ALT (SGPT) 83 U/L (0-50); AST (SGOT) 39 U/L (17-59); Albumin 3.4 g/dl (3.5-5.0); Alkaline Phosphatase 70 U/L (38-126); Blood Urea Nitrogen 37 mg/dl (9-20); Calcium 8.9 mg/dl (8.4-10.2); Carbon Dioxide 22 mmol/L (22-30); Chloride 104 mmol/L (98-107); Estimated Creatinine Clearance 45 ml/min; Glucose 149 mg/dl (70-99); Potassium 4.1 mmol/L (3.5-5.1); Sodium 135 mmol/L (135-145); Total Bilirubin 1.5 mg/dl (0.2-1.3); Total Protein 6.5 g/dl (6.3-8.2); eGFR 45.21
[2024-08-07] MEDS: NICODERM TRANSDERMAL 7 MG TRANSDERM (12:12)
[2024-08-07 12:13] LABS: NT-proBNP 66.8 pg/ml; Troponin I < 0.012 ng/ml
[2024-08-07 13:22] VITALS: BP 130/63
[2024-08-07] MEDS: NSS 500 IV (13:22)
[2024-08-07] MEDS: DUONEB 3 ML INH (13:22)
== END 2024-08-07 14:40 | disposition home or self-care (01) ==
LOC: EMR 10:19
PROVIDERS: Physician Assistant; EMERGENCY PHYSICIAN Emergency Medicine; FAMILY PHYSICIAN Family Medicine
DX: R06.02 Shortness of breath (principal); R09.02 Hypoxemia; I10 Essential (primary) hypertension; J44.9 Chronic obstructive pulmonary disease, unspecified; E78.5 Hyperlipidemia, unspecified; E11.9 Type 2 diabetes mellitus without complications; N17.9 Acute kidney failure, unspecified; Z86.79 Personal history of other diseases of the circulatory system
CPT/HCPCS: 99285; 94640; 96360; 71046; 71275; 80053; 83880; 84484; 85025; 93005; Q9967

== ENCOUNTER 2024-08-08 10:26 | Inpatient (IN) | payer OTHER, SELFPAY ==
[2024-08-08] VITALS (23 sets, daily range): BP systolic 50–149; BP diastolic 47–77; BMI 26.8
--- NOTE | 2024-08-08 08:55 | PTCARENOTE ---
IRAD note: patient is post liver abscess drain placement. c/o right upper abdomen pain as continuos aching. Dr. robledo notified. PO Tylenol 650mg given per order.
[2024-08-08] MEDS: DILAUDID 0.5 MG IV (09:00)
--- NOTE | 2024-08-08 09:05 | PTCARENOTE ---
IRAD note: Patient still c/o 10/10 pain at procedure site. pt became very restless. Dilaudid 0.5mg IV given per order.
[2024-08-08] MEDS: TYLENOL 650 MG PO (09:14)
--- NOTE | 2024-08-08 09:23 | W.PN.UPDATE ---
Update Note
Progress Note Update
Patient is reporting a great deal of pain after liver abscess drain, and difficulty breathing.
Afebrile, AVSS.
CXR shows no pneumothorax or pleural effusion.
Symptoms all likely related to abscess and drainage procedure. Gave dilaudid 0.5 mg and oral tylenol. Will also give Toradol.
Hopefully symptoms will improve with medication and time, if not he may require
[2024-08-08] MEDS: TORADOL 30 MG IV (09:35)
--- NOTE | 2024-08-08 09:44 | PTCARENOTE ---
IRAD note: patient c/o trouble breathing and 10/10 pain at procedure site. pain unrelieved by Tylenol and Dilaudid. still restless. . Dr. Pappas notified. CXR done. Toradol 30mg IV given per order. pain some what better after Toradol. at the
bedside. updated by Dr. Pappas. continue to monitor patient.
--- NOTE | 2024-08-08 10:26 | W.PN.UPDATE ---
Update Note
Progress Note Update
Patient presented for biopsy of a suspected hepatic mass this morning. Upon needle entry, a large amount of pus was encountered. Placed 8Fr drain, yielding 70 cc purulent fluid. Sent for C+S.
Immediately following procedure, patient was having severe pain and difficulty breathing. Gave dilaudid 0.5 mg IV, tylenol PO, and toradol 30 mg, with significant symptom improvement. CXR was normal.
Patient is now being admitted for IV antibiotics. Appreciate Drs. Zavala and Enedina.
--- NOTE | 2024-08-08 10:34 | PTCARENOTE ---
Addendum entered by Gilles Flowers RN 08/08/24 10:40:
Paper prescription for drain flush given to .
Original Note:
Patient is feeling better now. denies any pain just a mild soreness at the site. vitals stable. denied any Trouble breathing. per ID, patient needs to be admitted for IV ABX. at the bedside. Drain care teaching done with . verbalized
understanding.
--- NOTE | 2024-08-08 10:38 | HPS.HSE ---
Family Physician
-
Family Physician: Gamal Mcdonald Jr.
Chief Complaint
-
IV antibiotic for liver abscess
History of Present Illness
73-year-old male with medical history of hypertension, CKD stage III, abdominal aortic aneurysm (status post repair 2018), current smoker, COPD who was discharged a few days ago and returned as outpt today for IR liver mass biopsy.
Informed by IR that this is liver abscess, not liver mass. Drain placed by IR.
Discussed case with ID doctor boom conveyor operator who recc admission for IV abx.
updated.
Medical History
Past Medical History
Past Medical History: Reports Other
Additional Past Medical History:
COPD
active smoker
hypertension
HLD
CKD 3B
prostate cancer stage I being monitored
renal calculi bladder calculi with sepsis
Abdominal Aortic Aneurysm repair 2018 with stent [facility].
Past Surgical History: Reports Other
Additional Past Surgical History:
Abdominal Aortic Aneurysm repair 2018 with stent [facility].
Social History
Tobacco: Smoker (1 pack a day x 60 years)
Alcohol: Occasional (1 glass of wine a month)
Personal:
Living: With Family ( adult sons and multiple grandchildren)
Employment: Retired
Family History
Family History: Other (Mother lungs CA history hypertension DM, father multiple strokes, HTN, DM 2)
Allergies / Home Medications
Allergies reflects when Allergies were last updated in [facility].
Home Medications with original date entered in [facility]
Allergy/Medication List:
Allergies
Allergy/AdvReac Type Severity Reaction Status Date / Time
No Known Allergies Allergy Verified 08/08/24 07:46
Home Medications
aspirin 81 mg chewable tablet 81 mg PO DAILY Blood Clot Prevention/Tx 07/28/24
atorvastatin 10 mg tablet 10 mg PO QPM High Cholesterol 07/28/24
chlorthalidone 25 mg tablet 12.5 mg PO DAILY Fluid Retention/Swelling 07/28/24
cyanocobalamin (vitamin B-12) 100 mcg tablet (Vitamin B-12) 100 mcg PO DAILY Supplement 07/28/24
doxazosin 8 mg tablet 8 mg PO QPM Blood Pressure 07/28/24
dutasteride 0.5 mg capsule 0.5 mg PO QPM Urinary Issue 07/28/24
fenofibrate micronized 67 mg capsule 67 mg PO QPM High Cholesterol 07/28/24
nicotine (polacrilex) 2 mg gum 2 mg PO Q2HPRN PRN craving nicotine 30 days #30 ea 07/29/24
guaifenesin 600 mg tablet, extended release 12 hr 600 mg PO [id number] PRN cough 07/31/24
lisinopril 40 mg tablet 20 mg PO QPM Blood Pressure 08/01/24
prednisone 20 mg tablet 20 mg PO DAILY 5 days #5 tabs 08/04/24
metoprolol succinate 25 mg tablet,extended release 24 hr 100 mg PO QPM 08/06/24
albuterol sulfate 1.25 mg/3 mL solution for nebulization 1.25 mg (3 mL) inhalation Q4H #75 mL 08/07/24
Review of Systems
-
Abdomen/GI: Reports See HPI
Physical Exam
Vital Signs
Vital Signs
Temp Pulse Resp BP Pulse Ox
36.7 C 55 15 115/52 92
08/08/24 08:45 08/08/24 09:45 08/08/24 09:45 08/08/24 09:45 08/08/24 09:45
Physical Exam
General: Well Developed, Well Nourished, No Apparent Distress, Comfortable and Conversant
HEENT: NormoCephalic and Anicteric
Respiratory: Clear and Non Labored Respirations; No Accessory Resp Muscle Use
Cardiac: S1/S2 and Regular Rhythm
GI: Soft, Non Tender and Other (Right upper quadrant abdominal drain)
Musculoskeletal: No Edema
Skin: Warm and Dry
Neuro: Slurred Speech
Psych: Calm and Intact Judgment/Insight
Impression/Plan
-
73-year-old male with medical history of hypertension, CKD stage III, abdominal aortic aneurysm (status post repair 2017), current smoker, COPD who was discharged a few days ago and returned as outpt today for IR liver mass biopsy.
Informed by IR that this is liver abscess, not liver mass. Drain placed by IR.
Discussed case with ID doctor boom conveyor operator who recc admission for IV abx.
updated.
A/P:
# Liver abscess s/p drainage 08/08
follow wound culture
start empiric Flagyl and cefepime
ID CS
resume ASA if Hgb stable tmr
OK to eat per IR
# Lung nodules, stable ill-defined peripheral nodules within the left lung suggesting they are benign
# CKD stage III
Monitor SCr on home lisinopril, chlorthalidone
# Hypertension
Continue home metoprolol succinate, lisinopril, chlorthalidone
# Enlarged prostate with history of stage I prostate cancer being monitored
Continue dutasteride
# Tobacco abuse
Current smoker
Continue to encourage cessation, nicotine patch provided
CODE STATUS: Full code
DW IR
DW ID
DW on the phone
total time coordinating care for patient was about 90 minutes
--- NOTE | 2024-08-08 11:00 | PTCARENOTE ---
patient seen by Dr. Zavala. Admission orders placed by her. Admission notified. waiting for bed.
--- NOTE | 2024-08-08 13:00 | PTCARENOTE ---
assigned bed to be cleaned. patient and notified.
--- NOTE | 2024-08-08 13:29 | CON.ID ---
Consultation
-
Date/Time Consultation Requested: 08/08/24 10:17
Date/Time Consultation Performed: 08/08/24 13:30
Requesting Provider: Dr Zavala
Performing Provider: Dr Mcconnell
Reason for Consultation: pyogenic liver abscess
Chief Complaint / Past History
Chief Complaint
liver abscess
History of Present Illness
Mr Cosby is a 73 year old male with past medical history notable for CKD3, COPD who presented here today for outpatient IR guided biopsy of liver mass. Patient reports no chronic fevers, chills or unintentional weight loss. He was recently
hospitalized 07/28-07/29 for influenza A and COPD exacerbation with symptoms of fevers, chills, weakness, productive cough, decreased oral intake. No abdominal pain at that time. He was treated with tamiflu and also decadron for COPD exacerbation.
He later represented to ER 07/31 for rigors and shortness of breath along with frequent hiccups. Cough was ongoing. he was started on vancomycin, cefepime and azithromycin with concern for bacterial pneumonia, later transitioned to ceftriaxone. He
completed a 5 day total course of ceftriaxone. He was incidentally found to have two liver masses the largest on MRI abd 08/01 was 6.5 x 6.1 x 4.5 and there was a satellite lesion superiorly 2x2x1.7 cm; differential malignant vs hepatic abscess.
Biopsy was postponed due to ASA use. He was planned for biopsy with IR which was completed today and notable for return of about 70 ccs of purulent fluid.
History of travel to [place], [place] travel to [place] , no history of having sex with other men. Reports colonoscopy was completed 1 month ago
Since arrival this visit he has been afebrile, last recorded fever here was 07/31 to 104.9, bp today intermittently mildly low now improved, no labs done today. Labs yesterday wbc 14.6, hgb 15.3, plt 212, L shift noted, cr baseline appears to be 1.1
yesterday it was 1.6, hep C antibody negative 08/01, liver biopsy today 70 ccs purulent drainage from the larger collection, wound culture in progress
Past History
Additional Past Medical History:
COPD
active smoker
hypertension
HLD
CKD 3B
prostate cancer stage I being monitored
renal calculi bladder calculi with sepsis
Additional Past Surgical History:
Abdominal Aortic Aneurysm repair 2018 with stent Sergio Tavares.
Allergy History:
No Known Allergies Allergy (Verified 08/08/24 07:46)
Medications Reviewed: Yes
Social History
Tobacco: Smoker (60 pack year history)
Alcohol: Occasional
Personal:
Family History
Family History: Not Pertinent
Review of Systems
Review of Systems
General: Fever and Chills
All systems: All other systems were reviewed and were negative
Vital Signs
Temp Pulse Resp BP Pulse Ox
98.1 F 55 16 109/58 93
08/08/24 08:45 08/08/24 11:30 08/08/24 11:30 08/08/24 11:30 08/08/24 11:30
Physical Exam
Physical Exam
Constitutional: No Acute Distress
Cardiovascular: Regular Rate and S1/S2; Negative Murmur or Rub
Pulmonary: Clear and Symmetric; Negative Wheezes, Rales or Rhonchi
Gastrointestinal: Soft, Non Tender, Non Distended and Normal Bowel Sounds
Skin: Warm and Dry; Negative Rash or Jaundice
Lines: Other (drain with puurlent output about 70 ccs in the bulb)
Microbiology Results
Micro:
08/08/24 09:13 Wound Culture - Pending
Abscess Gram Stain - Pending
Assessment / Plan
Pyogenic liver abscesses
- larger abscess has been drained, for small abscess antibiotic therapy likely sufficient
- blood cultures x2
- aerobic and anaerobic cultures from the abscess
- follow drain output
- start ceftriaxone IV and metronidazole oral
- colonoscopy 1 month ago with polyps - resected, no need to repeat screening at this time
follow clinically
Care Review
Plan reviewed with: Physician (Dr Lucas Ryder I recommended admission)
--- NOTE | 2024-08-08 15:02 | PTCARENOTE ---
Report given to Alex oakford nurse Soriano. patient transferred to [facility].
[2024-08-08] MEDS: VENTOLIN NEBULES 1.25 MG INH ×2 (15:25→20:26)
[2024-08-08 16:15] LABS: ALT (SGPT) 95 U/L (0-50); AST (SGOT) 50 U/L (17-59); Albumin 3.5 g/dl (3.5-5.0); Alkaline Phosphatase 76 U/L (38-126); Blood Urea Nitrogen 47 mg/dl (9-20); Calcium 9.1 mg/dl (8.4-10.2); Carbon Dioxide 26 mmol/L (22-30); Chloride 102 mmol/L (98-107); Estimated Creatinine Clearance 38 ml/min; Glucose 99 mg/dl (70-99); Potassium 4.6 mmol/L (3.5-5.1); Sodium 138 mmol/L (135-145); Total Bilirubin 1.3 mg/dl (0.2-1.3); Total Protein 6.6 g/dl (6.3-8.2); eGFR 36.79
[2024-08-08] MEDS: NSS 1000 IV (16:59)
[2024-08-08] MEDS: NICODERM TRANSDERMAL 14 MG TRANSDERM (17:03)
[2024-08-08] MEDS: FLAGYL 500 MG PO ×2 (17:20→23:03)
[2024-08-08] MEDS: TOPROL XL 25 MG PO (17:24)
[2024-08-08] MEDS: CARDURA 8 MG PO (17:24)
[2024-08-08] MEDS: STERILE WATER FOR INJECTION 20 ML IV (17:24)
[2024-08-08] MEDS: ROCEPHIN 2000 MG IV (17:24)
[2024-08-08] MEDS: ZESTRIL 20 MG PO (17:25)
[2024-08-08] MEDS: PROSCAR 5 MG PO (17:25)
[2024-08-09] MEDS: MORPHINE SULFATE 2 MG IV ×6 (03:46→23:49)
[2024-08-09] MEDS: NSS 1000 IV ×2 (05:44→18:20)
[2024-08-09 07:11] VITALS: BP 131/60
[2024-08-09 07:18] LABS: % Basophils 0.2 % (0-2); % Eosinophils 0.7 % (0-6); % Lymphocytes 16.7 % (20.5-51.1); % Monocytes 7.7 % (1.7-9.3); % Neutrophils 73.7 % (42.2-75.2); Absolute Eosinophils 0.1 10^3/uL (0-0.7); Absolute Immature Granulocytes 0.1 10^3/uL (0-0.05); Absolute Monocytes 0.9 10^3/uL (0.1-0.6); Hemoglobin 13.2 g/dL (13.0-18.0); Mean Corp Hgb Conc. 32.2 g/dL (33.0-37.0); Mean Corpuscular Hgb 28.3 pg (27.0-31.0); Nucleated Red Blood Cells % 0 % (-); Platelet Count 210 10^3/uL (130-400); Red Blood Cell Count 4.66 10^6/uL (4.70-6.10); Red Cell Dist. Width 14.6 % (11.5-14.5); White Blood Cell Count 12.2 10^3/uL (4.8-10.8)
[2024-08-09] MEDS: VENTOLIN NEBULES 1.25 MG INH ×2 (07:23→19:15)
[2024-08-09 07:45] LABS: ALT (SGPT) 80 U/L (0-50); AST (SGOT) 33 U/L (17-59); Alkaline Phosphatase 76 U/L (38-126); Blood Urea Nitrogen 42 mg/dl (9-20); Calcium 8.7 mg/dl (8.4-10.2); Carbon Dioxide 22 mmol/L (22-30); Chloride 106 mmol/L (98-107); Estimated Creatinine Clearance 48 ml/min; Glucose 103 mg/dl (70-99); Magnesium 2.3 mg/dl (1.6-2.3); Sodium 137 mmol/L (135-145); Total Bilirubin 1.4 mg/dl (0.2-1.3); Total Protein 5.9 g/dl (6.3-8.2); eGFR 48.85
[2024-08-09] MEDS: NICODERM TRANSDERMAL 14 MG TRANSDERM (08:19)
[2024-08-09] MEDS: LOW STRENGTH ASPIRIN 81 MG PO (08:20)
[2024-08-09] MEDS: Hygroton 12.5 MG PO (08:20)
[2024-08-09] MEDS: FLAGYL 500 MG PO ×3 (08:20→23:48)
--- NOTE | 2024-08-09 11:21 | W.PN.HOSP.TC ---
Today's Communication/Plan
-
see A/P
Assessment / Plan
Assessment / Plan
HPI: 73-year-old male with medical history of hypertension, CKD stage III, abdominal aortic aneurysm (status post repair 2017), current smoker, COPD who was discharged a few days ago and returned as outpt today for IR liver mass biopsy.
Informed by IR that this is liver abscess, not liver mass. Drain placed by IR.
Discussed case with ID doctor actionscript developer who recc admission for IV abx.
A/P:
# Liver abscess s/p drain placement 08/08
Follow wound culture
Follow blood culture
Cont empiric Flagyl and ceftriaxone
ID on board
resumed ASA
# RUQ pain
cont pain control with Morphine 2 mg, increase to Q3H PRN.
Standing Senokot-S BID, with PRN Miralax, PRN Dulcolax while on opiate
Monitor pain and Hgb, if worsen, consider CT AP to eval for bleeding post liver biopsy
# Lung nodules, stable ill-defined peripheral nodules within the left lung suggesting they are benign
# SARITA on CKD stage III
SCr 1.9 to 1.5
Monitor SCr
Holding home lisinopril, chlorthalidone
# Hypertension
Continue home metoprolol succinate
Holding home lisinopril, chlorthalidone for now
IV hydralazine PRN for SBP > 160
# Enlarged prostate with history of stage I prostate cancer being monitored
Continue dutasteride
# Tobacco abuse
Current smoker
Continue to encourage cessation, nicotine patch provided
CODE STATUS: Full code
DW at bedside
Anticipated Discharge: > 48 hours
Subjective/Interval History
-
Date of Service: August 09, 2024
Objective Data
-
Labs:
Laboratory Results
08/09/24
06:39
WBC 12.2 H
Hgb 13.2
Hct 41.0
Plt Count 210
Sodium 137
Potassium 4.0
Chloride 106
Carbon Dioxide 22
BUN 42 H
Creatinine 1.5 H
Glucose 103 H
Calcium 8.7
Total Bilirubin 1.4 H
AST 33
ALT 80 H
Alkaline Phosphatase 76
Vital Signs:
Vital Signs
Temp Pulse Resp BP Pulse Ox
36.6 C 61 18 148/59 93
08/09/24 07:11 08/09/24 08:20 08/09/24 07:25 08/09/24 08:20 08/09/24 07:25
I&O
08/08/24 08/09/24 08/10/24
06:59 06:59 06:59
Intake Total 1840 / 1840
Output Total 370 / 370
Balance 1470 / 1470
Review of Systems
-
All other systems: Reviewed and negative
Abdomen/GI: Reports Abdominal Pain (RUQ)
Physical Exam
-
General: Well Developed, Well Nourished, No Apparent Distress, Comfortable and Conversant
Respiratory: Clear to Auscultation and Non Labored Respirations; Negative Accessory Resp Muscle Use
Cardiac: Regular Rhythm and S1/S2
GI: Soft and Tender (RUQ)
Neuro: Awake and Alert
Psych: Calm and Intact Judgement/Insight
Data Reviewed
-
Labs: Labs Reviewed by me
--- NOTE | 2024-08-09 11:41 | W.PN.ID1 ---
Date of Service
Date of Service: August 09, 2024
Today's Communication
- c/w ceftriaxone IV and metronidazole oral
Assessment / Plan
Pyogenic liver abscesses
SARITA
- larger abscess has been drained, for small abscess antibiotic therapy likely sufficient
- blood cultures x2 no growth to date
- aerobic and anaerobic cultures from the abscess - gram stain negative
- follow drain output - 120 ccs output yesterday, 20 thus far today
- c/w ceftriaxone IV and metronidazole oral
- colonoscopy 1 month ago with polyps - resected, no need to repeat screening at this time
follow clinically
Chief Complaint
-: Other (pyogenic liver abscess)
Subjective / Review of Systems
afebrile
bp stable
no events overnight
reports pain not currently controlled
Vital Signs / Physical Exam
Vital Signs
Vital Signs
Temp Pulse Resp BP Pulse Ox
97.8 F 61 18 148/59 93
08/09/24 07:11 08/09/24 08:20 08/09/24 07:25 08/09/24 08:20 08/09/24 07:25
Physical Exam
Constitutional: No Acute Distress and Comfortable
Cardiovascular: Regular Rate and S1/S2; Negative Murmur or Rub
Pulmonary: Clear and Symmetric; Negative Wheezes or Rales
Gastrointestinal: Soft, Non Tender, Non Distended and Normal Bowel Sounds
Skin: Warm and Dry; Negative Rash or Jaundice
Lines: Other (drain output some purulence)
Objective Data
Lab Data
Lab Results
08/09/24 06:39
08/09/24 06:39
Estimated Creat Clear 48 ml/min 08/09/24 06:39
Total Bilirubin 1.4 mg/dl (0.2-1.3) H 08/09/24 06:39
AST 33 U/L (17-59) 08/09/24 06:39
ALT 80 U/L (0-50) H 08/09/24 06:39
Alkaline Phosphatase 76 U/L (38-126) 08/09/24 06:39
Most recent labs reviewed.
Micro Results:
08/08/24 09:13 Anaerobic Culture - Preliminary
Abscess Culture pending. Anaerobic cultures are examined after 3
days incubation. Additional information to follow.
08/08/24 09:13 Wound Culture - Preliminary
Abscess No growth
Gram Stain - Preliminary
08/08/24 16:30 Blood Culture - Pending
Blood/Venous
08/08/24 15:35 Blood Culture - Pending
Blood/Venous
--- NOTE | 2024-08-09 12:08 | PTCARENOTE ---
Assumed care of pt from previous nurse. Pt with some discomfort to [place] drain site, managed with morphine. Pt call banegas is within reach, pt rings manpreet. will cont to monitor.
[2024-08-09 15:13] VITALS: BP 129/68
[2024-08-09] MEDS: TESSALON PERLES 200 MG PO ×2 (16:10→19:46)
[2024-08-09] MEDS: STERILE WATER FOR INJECTION 20 ML IV (16:11)
[2024-08-09] MEDS: ROCEPHIN 2000 MG IV (16:12)
[2024-08-09] MEDS: TOPROL XL 25 MG PO (17:22)
[2024-08-09] MEDS: PROSCAR 5 MG PO (17:22)
[2024-08-09] MEDS: CARDURA 8 MG PO (17:23)
[2024-08-09] MEDS: SENOKOT-S 1 TABLET PO (19:46)
[2024-08-09 23:39] VITALS: BP 125/74
[2024-08-10] MEDS: NSS 1000 IV (06:07)
[2024-08-10 07:00] VITALS: BP 122/53
[2024-08-10 07:20] LABS: % Basophils 0.2 % (0-2); % Eosinophils 0.9 % (0-6); % Immature Granulocytes 0.9 % (0-0.5); % Lymphocytes 11.4 % (20.5-51.1); % Monocytes 9.8 % (1.7-9.3); % Neutrophils 76.8 % (42.2-75.2); Absolute Eosinophils 0.1 10^3/uL (0-0.7); Absolute Immature Granulocytes 0.1 10^3/uL (0-0.05); Absolute Lymphocytes 1.2 10^3/uL (1.2-3.4); Absolute Neutrophils 8.2 10^3/uL (1.4-6.5); Hematocrit 39.2 % (39.0-52.0); Hemoglobin 12.6 g/dL (13.0-18.0); Mean Corp Hgb Conc. 32.1 g/dL (33.0-37.0); Mean Corpuscular Hgb 28.2 pg (27.0-31.0); Mean Corpuscular Volume 87.7 fL (80.0-94.0); Mean Platelet Volume 10.3 fL (7.4-10.4); Nucleated Red Blood Cells % 0 % (-); Platelet Count 221 10^3/uL (130-400); Red Blood Cell Count 4.47 10^6/uL (4.70-6.10); Red Cell Dist. Width 14.8 % (11.5-14.5); White Blood Cell Count 10.7 10^3/uL (4.8-10.8)
[2024-08-10] MEDS: VENTOLIN NEBULES INH (07:26)
[2024-08-10 07:44] VITALS: BP 122/53
[2024-08-10 07:54] LABS: ALT (SGPT) 57 U/L (0-50); AST (SGOT) 24 U/L (17-59); Albumin 2.9 g/dl (3.5-5.0); Alkaline Phosphatase 72 U/L (38-126); Blood Urea Nitrogen 35 mg/dl (9-20); Calcium 8.4 mg/dl (8.4-10.2); Carbon Dioxide 19 mmol/L (22-30); Chloride 105 mmol/L (98-107); Estimated Creatinine Clearance 56 ml/min; Glucose 93 mg/dl (70-99); Potassium 4.1 mmol/L (3.5-5.1); Sodium 135 mmol/L (135-145); Total Bilirubin 1.2 mg/dl (0.2-1.3); Total Protein 5.8 g/dl (6.3-8.2); eGFR 58.01
--- NOTE | 2024-08-10 09:10 | W.PN.HOSP.TC ---
Today's Communication/Plan
-
see A/P
Assessment / Plan
Assessment / Plan
HPI: 73-year-old male with medical history of hypertension, CKD stage III, abdominal aortic aneurysm (status post repair 2017), current smoker, COPD who was discharged a few days ago and returned as outpt today for IR liver mass biopsy.
Informed by IR that this is liver abscess, not liver mass. Drain placed by IR.
Discussed case with ID doctor exhibition designer who recc admission for IV abx.
A/P:
# Liver abscess s/p drain placement 08/08
Follow wound culture
blood cultures NGTD
Cont empiric Flagyl and ceftriaxone
to check with IR duration of RUQ drain
ID on board
resumed home ASA
# RUQ pain, improving
cont pain control with Morphine 2 mg Q3H PRN.
Standing Senokot-S BID, with PRN Miralax, PRN Dulcolax while on opiate
Monitor pain and Hgb, if both significantly worsen, consider CT AP to eval for bleeding post liver biopsy
# Lung nodules, stable ill-defined peripheral nodules within the left lung suggesting they are benign
# SARITA on CKD stage III
SCr 1.9 to 1.3 today
DC further gentle IVF
Monitor SCr
Holding home lisinopril, chlorthalidone
# Hypertension
Continue home metoprolol succinate
Holding home lisinopril, chlorthalidone for now
IV hydralazine PRN for SBP > 160
# Enlarged prostate with history of stage I prostate cancer being monitored
Continue dutasteride
# Tobacco abuse
Current smoker
Continue to encourage cessation, nicotine patch provided
CODE STATUS: Full code
DW at bedside
Anticipated Discharge: 24 - 48 hours
Subjective/Interval History
-
Date of Service: August 10, 2024
Objective Data
-
Labs:
Laboratory Results
08/10/24
06:07
WBC 10.7
Hgb 12.6 L
Hct 39.2
Plt Count 221
Sodium 135
Potassium 4.1
Chloride 105
Carbon Dioxide 19 L
BUN 35 H
Creatinine 1.3
Glucose 93
Calcium 8.4
Total Bilirubin 1.2
AST 24
ALT 57 H
Alkaline Phosphatase 72
Vital Signs:
Vital Signs
Temp Pulse Resp BP Pulse Ox
37.2 C 65 15 122/53 93
08/10/24 07:00 08/10/24 07:00 08/10/24 07:00 08/10/24 07:00 08/10/24 07:00
I&O
08/09/24 08/10/24 08/11/24
06:59 06:59 06:59
Intake Total 1840 / 1840 2170 / 2170
Output Total 370 / 370 985 / 985
Balance 1470 / 1470 1185 / 1185
Review of Systems
-
All other systems: Reviewed and negative
Abdomen/GI: Reports Abdominal Pain (RUQ pain has much improved )
Physical Exam
-
General: Well Developed, Well Nourished, No Apparent Distress, Comfortable and Conversant
Respiratory: Clear to Auscultation and Non Labored Respirations; Negative Accessory Resp Muscle Use
Cardiac: Regular Rhythm and S1/S2
GI: Soft and Other (RUQ abd drain)
Neuro: Awake and Alert
Psych: Calm and Intact Judgement/Insight
Data Reviewed
-
Labs: Labs Reviewed by me
[2024-08-10] MEDS: FLAGYL 500 MG PO ×3 (09:44→23:35)
[2024-08-10] MEDS: NICODERM TRANSDERMAL 14 MG TRANSDERM (09:45)
[2024-08-10] MEDS: LOW STRENGTH ASPIRIN 81 MG PO (09:45)
[2024-08-10] MEDS: SENOKOT-S 1 TABLET PO ×2 (09:46→20:49)
--- NOTE | 2024-08-10 10:28 | CM ---
Initial assessment completed
IMM benefit explained; form signed @ [id number]
Pharmacy verified: [facility] @ [id number] [facility]
Patient and live in a multilevel home with son and his family; 3 steps to enter; 11 steps between floors; powder room 1st floor; patient's bathroom has stall shower
PLOF: independent with ambulation, steps and ADLs; drives; retired
Spouse will transport home
Discharge plan to be determined; CM will monitor for needs/services
[2024-08-10] MEDS: TYLENOL 650 MG PO (14:05)
[2024-08-10 15:25] VITALS: BP 131/63
[2024-08-10] MEDS: TESSALON PERLES 200 MG PO (17:59)
[2024-08-10] MEDS: PROSCAR 5 MG PO (18:00)
[2024-08-10] MEDS: CARDURA 8 MG PO (18:00)
[2024-08-10] MEDS: TOPROL XL 25 MG PO (18:01)
[2024-08-10] MEDS: STERILE WATER FOR INJECTION 20 ML IV (18:02)
[2024-08-10] MEDS: ROCEPHIN 2000 MG IV (18:02)
[2024-08-10] MEDS: VENTOLIN NEBULES 1.25 MG INH (18:02)
[2024-08-10] MEDS: MORPHINE SULFATE 2 MG IV ×2 (20:39→23:40)
[2024-08-10 23:12] VITALS: BP 140/57
[2024-08-11 07:00] VITALS: BP 116/59
[2024-08-11 07:21] LABS: % Basophils 0.3 % (0-2); % Eosinophils 0.8 % (0-6); % Immature Granulocytes 0.7 % (0-0.5); % Lymphocytes 12.5 % (20.5-51.1); % Monocytes 9.1 % (1.7-9.3); % Neutrophils 76.6 % (42.2-75.2); Absolute Eosinophils 0.1 10^3/uL (0-0.7); Absolute Immature Granulocytes 0.1 10^3/uL (0-0.05); Absolute Lymphocytes 1.3 10^3/uL (1.2-3.4); Absolute Monocytes 0.9 10^3/uL (0.1-0.6); Absolute Neutrophils 7.9 10^3/uL (1.4-6.5); Hematocrit 40.7 % (39.0-52.0); Hemoglobin 13.3 g/dL (13.0-18.0); Mean Corp Hgb Conc. 32.7 g/dL (33.0-37.0); Mean Corpuscular Hgb 28.5 pg (27.0-31.0); Mean Corpuscular Volume 87.2 fL (80.0-94.0); Mean Platelet Volume 9.9 fL (7.4-10.4); Nucleated Red Blood Cells % 0 % (-); Platelet Count 239 10^3/uL (130-400); Red Blood Cell Count 4.67 10^6/uL (4.70-6.10); Red Cell Dist. Width 14.6 % (11.5-14.5); White Blood Cell Count 10.4 10^3/uL (4.8-10.8)
[2024-08-11] MEDS: VENTOLIN NEBULES INH ×2 (07:26→20:34)
[2024-08-11 07:51] LABS: ALT (SGPT) 46 U/L (0-50); AST (SGOT) 24 U/L (17-59); Albumin 3.1 g/dl (3.5-5.0); Alkaline Phosphatase 75 U/L (38-126); Blood Urea Nitrogen 28 mg/dl (9-20); Carbon Dioxide 23 mmol/L (22-30); Chloride 101 mmol/L (98-107); Estimated Creatinine Clearance 60 ml/min; Glucose 100 mg/dl (70-99); Potassium 4.2 mmol/L (3.5-5.1); Sodium 137 mmol/L (135-145); Total Bilirubin 0.9 mg/dl (0.2-1.3); Total Protein 6.2 g/dl (6.3-8.2); eGFR > 60.00
[2024-08-11] MEDS: LOW STRENGTH ASPIRIN 81 MG PO (08:08)
[2024-08-11] MEDS: FLAGYL 500 MG PO ×2 (08:08→16:51)
[2024-08-11] MEDS: SENOKOT-S 1 TABLET PO ×2 (08:08→21:03)
[2024-08-11] MEDS: NICODERM TRANSDERMAL 14 MG TRANSDERM (08:08)
--- NOTE | 2024-08-11 11:29 | W.PN.ID1 ---
Date of Service
Date of Service: August 11, 2024
Today's Communication
- follow drain output - 25 ccs recorded yesterday, IR could reassess tomorrow if drain output remains slow
- c/w ceftriaxone IV and metronidazole oral plan 2 weeks of IV ceftriaxone along with oral metronidazole then can switch to cefdinir 300 mg PO BID along with ongoing metronidazole for another 2 weeks
- midline
- script sent to case finishing machine adjuster
Assessment / Plan
Pyogenic liver abscesses
SARITA
- larger abscess has been drained, for small abscess antibiotic therapy likely sufficient
- blood cultures x2 no growth to date
- aerobic and anaerobic cultures from the abscess - gram stain negative
- follow drain output - 25 ccs recorded yesterday, IR could reassess tomorrow if drain output remains slow
- c/w ceftriaxone IV and metronidazole oral plan 2 weeks of IV ceftriaxone along with oral metronidazole then can switch to cefdinir 300 mg PO BID along with ongoing metronidazole for another 2 weeks
- midline
- script sent to case finishing machine adjuster
- colonoscopy 1 month ago with polyps - resected, no need to repeat screening at this time
follow clinically
Chief Complaint
-: Other (pyogenic liver abscess)
Subjective / Review of Systems
afebrile
bp stable
no events sunday or overnight
Vital Signs / Physical Exam
Vital Signs
Vital Signs
Temp Pulse Resp BP Pulse Ox
98.5 F 71 16 116/59 94
08/11/24 07:00 08/11/24 07:00 08/11/24 07:00 08/11/24 07:00 08/11/24 07:00
Physical Exam
Constitutional: No Acute Distress
Cardiovascular: Regular Rate and S1/S2; Negative Murmur or Rub
Pulmonary: Clear and Symmetric; Negative Wheezes or Rales
Gastrointestinal: Soft, Non Tender, Non Distended and Normal Bowel Sounds
Skin: Warm and Dry; Negative Rash or Jaundice
Lines: Other (drain fluid is clear)
Objective Data
Lab Data
Lab Results
08/11/24 06:03
08/11/24 06:03
Estimated Creat Clear 60 ml/min 08/11/24 06:03
Total Bilirubin 0.9 mg/dl (0.2-1.3) 08/11/24 06:03
AST 24 U/L (17-59) 08/11/24 06:03
ALT 46 U/L (0-50) 08/11/24 06:03
Alkaline Phosphatase 75 U/L (38-126) 08/11/24 06:03
Most recent labs reviewed.
Micro Results:
08/08/24 16:30 Blood Culture - Preliminary
Blood/Venous No Growth in 48 hours- Final report to follow
08/08/24 15:35 Blood Culture - Preliminary
Blood/Venous No Growth in 48 hours- Final report to follow
08/08/24 09:13 Anaerobic Culture - Preliminary
Abscess Culture pending. Anaerobic cultures are examined after 3
days incubation. Additional information to follow.
08/08/24 09:13 Wound Culture - Preliminary
Abscess No growth
Gram Stain - Preliminary
--- NOTE | 2024-08-11 13:14 | CM ---
Addendum entered by Tracy Su 08/11/24 16:42:
CM spoke w/ Bette, pt is covered at 100%, no out of pocket cost for abx. [facility] will provide VN as well
CM met w/ pt and spouse at bedside, agreeable to move forward w/ [facility]. CM updated Bette
Original Note:
Chart reviewed for d/c planning. Pt will require IV abx at home thru 08/21. Script provided to CM.
CM met w/ pt bedside to discuss home abx needs. Pt did not have a preference on an infusion company, agreeable to explore [facility] as supplier.
CM attempted call to Bette/[facility] clinical liaison, left message. Script and clinicals faxed to [phone] to determine pt's out of pocket costs for medication. CM will review w/ pt once costs are determined.
Plan: Home w/ IV abx. [facility] to follow up w/ CM once out of pocket cost is determined
[2024-08-11 15:00] VITALS: BP 131/61
--- NOTE | 2024-08-11 15:46 | W.PN.HOSP.TC ---
Today's Communication/Plan
-
Assessment / Plan
Assessment / Plan
Gen-AAOx3, NAD
HEENT-NC, AT, anicteric, clear oral mm
CV-regular rhythm, controlled HR around 70
Lungs-symmetric chest rise, no increased work of breathing
Abd-soft, right upper quadrant drain with purulent output
Musculoskeletal-no edema, no deformity
Skin-dry, no ulcers
Neuro-grossly non-focal, no tremor
Psych-calm, cooperative
HPI: 73-year-old male with medical history of hypertension, CKD stage III, abdominal aortic aneurysm (status post repair 2017), current smoker, COPD who was discharged a few days ago and returned as outpt today for IR liver mass biopsy.
Informed by IR that this is liver abscess, not liver mass. Drain placed by IR.
Discussed case with ID doctor regional hr manager who recc admission for IV abx.
A/P:
# Liver abscess s/p drain placement 08/08
Follow wound culture
blood cultures NGTD
ID recommend continuing empiric Flagyl and ceftriaxone, midline placement for planned IR ceftriaxone x 2 weeks in addition to oral metronidazole, after which we will switch to cefdinir 3 mg p.o. twice daily and metronidazole for another 2 weeks
Will follow-up again with IR tomorrow 08/12 regarding duration of RUQ drain considering output has been decreasing
resumed home ASA
# RUQ pain, improving
cont pain control with Morphine 2 mg Q3H PRN.
Standing Senokot-S BID, with PRN Miralax, PRN Dulcolax while on opiate
Monitor pain and Hgb, if both significantly worsen, consider CT AP to eval for bleeding post liver biopsy
# Lung nodules, stable ill-defined peripheral nodules within the left lung suggesting they are benign
# SARITA on CKD stage III
SCr 1.9 to 1.2 today
DC further gentle IVF
Monitor SCr
Holding home lisinopril, chlorthalidone
# Hypertension
Continue home metoprolol succinate
Holding home lisinopril, chlorthalidone for now
IV hydralazine PRN for SBP > 160
# Enlarged prostate with history of stage I prostate cancer being monitored
Continue dutasteride
# Tobacco abuse
Current smoker
Continue to encourage cessation, nicotine patch provided
CODE STATUS: Full code
DW at bedside
Anticipated Discharge: 24 - 48 hours
Subjective/Interval History
-
Date of Service: August 11, 2024
Patient was seen and examined at bedside this morning. Feeling well, only complaint of mild discomfort at drain placement and right upper quadrant.
Objective Data
-
Labs:
Laboratory Results
08/11/24
06:03
WBC 10.4
Hgb 13.3
Hct 40.7
Plt Count 239
Sodium 137
Potassium 4.2
Chloride 101
Carbon Dioxide 23
BUN 28 H
Creatinine 1.2
Glucose 100 H
Calcium 9.0
Total Bilirubin 0.9
AST 24
ALT 46
Alkaline Phosphatase 75
Vital Signs:
Vital Signs
Temp Pulse Resp BP Pulse Ox
98.5 F 71 16 116/59 94
08/11/24 07:00 08/11/24 07:00 08/11/24 07:00 08/11/24 07:00 08/11/24 07:00
I&O
08/10/24 08/11/24 08/12/24
06:59 06:59 06:59
Intake Total 2170 / 2170 250 / 250 960 / 960
Output Total 985 / 985 445 / 445
Balance 1185 / 1185 -195 / -195 960 / 960
Review of Systems
-
History Source: Patient
All other systems: Reviewed and negative
Abdomen/GI: Reports Abdominal Pain (Mild pain at drain site right upper quadrant)
Physical Exam
-
General: No Apparent Distress
[2024-08-11] MEDS: TOPROL XL 25 MG PO (17:14)
[2024-08-11] MEDS: STERILE WATER FOR INJECTION 20 ML IV (17:14)
[2024-08-11] MEDS: ROCEPHIN 2000 MG IV (17:14)
[2024-08-11] MEDS: PROSCAR 5 MG PO (17:15)
[2024-08-11] MEDS: CARDURA 8 MG PO (17:20)
[2024-08-11] MEDS: TESSALON PERLES 200 MG PO (18:05)
[2024-08-11] MEDS: ULTRAM 50 MG PO (18:05)
[2024-08-11] MEDS: MELATONIN 5 MG PO (21:03)
[2024-08-11 23:29] VITALS: BP 133/64
[2024-08-12] MEDS: FLAGYL 500 MG PO ×3 (00:46→15:39)
[2024-08-12 07:05] VITALS: BP 115/62
[2024-08-12] MEDS: VENTOLIN NEBULES INH (07:31)
[2024-08-12] MEDS: SENOKOT-S 1 TABLET PO (07:40)
[2024-08-12] MEDS: ULTRAM 50 MG PO ×2 (07:40→15:58)
[2024-08-12] MEDS: LOW STRENGTH ASPIRIN 81 MG PO (07:40)
[2024-08-12] MEDS: NICODERM TRANSDERMAL 14 MG TRANSDERM (07:41)
[2024-08-12] MEDS: TESSALON PERLES 200 MG PO (07:56)
[2024-08-12 09:05] LABS: % Basophils 0.4 % (0-2); % Eosinophils 1.3 % (0-6); % Immature Granulocytes 0.5 % (0-0.5); % Lymphocytes 16.2 % (20.5-51.1); % Monocytes 11.7 % (1.7-9.3); % Neutrophils 69.9 % (42.2-75.2); Absolute Eosinophils 0.1 10^3/uL (0-0.7); Absolute Lymphocytes 1.3 10^3/uL (1.2-3.4); Absolute Monocytes 0.9 10^3/uL (0.1-0.6); Absolute Neutrophils 5.4 10^3/uL (1.4-6.5); Hematocrit 39.6 % (39.0-52.0); Hemoglobin 13.1 g/dL (13.0-18.0); Mean Corp Hgb Conc. 33.1 g/dL (33.0-37.0); Mean Corpuscular Hgb 28.2 pg (27.0-31.0); Mean Corpuscular Volume 85.3 fL (80.0-94.0); Mean Platelet Volume 9.9 fL (7.4-10.4); Nucleated Red Blood Cells % 0 % (-); Platelet Count 244 10^3/uL (130-400); Red Blood Cell Count 4.64 10^6/uL (4.70-6.10); Red Cell Dist. Width 14.7 % (11.5-14.5); White Blood Cell Count 7.7 10^3/uL (4.8-10.8)
[2024-08-12 09:15] LABS: Blood Urea Nitrogen 26 mg/dl (9-20); Calcium 9.4 mg/dl (8.4-10.2); Carbon Dioxide 21 mmol/L (22-30); Chloride 106 mmol/L (98-107); Estimated Creatinine Clearance 72 ml/min; Glucose 113 mg/dl (70-99); Phosphorus 4.1 mg/dl (2.5-4.5); Potassium 4.2 mmol/L (3.5-5.1); Sodium 136 mmol/L (135-145); eGFR > 60.00
[2024-08-12 10:59] LABS: Erythrocyte Sed Rate 48 mm/hour (0-20)
--- NOTE | 2024-08-12 12:32 | W.PN.ID1 ---
Date of Service
Date of Service: August 12, 2024
Today's Communication
- follow drain output - asked IR to please reassess drain today
- c/w ceftriaxone IV and metronidazole oral plan 2 weeks of IV ceftriaxone along with oral metronidazole then can switch to cefdinir 300 mg PO BID along with ongoing metronidazole for another 2 weeks
- midline
- script sent to outsole caser
Assessment / Plan
Pyogenic liver abscesses
SARITA
- larger abscess has been drained, for small abscess antibiotic therapy likely sufficient
- blood cultures x2 no growth to date
- aerobic and anaerobic cultures from the abscess - gram stain negative
- outpatient follow up with IR - please arrange before dc
- patients requesting repeat teaching of how to flush drain
- c/w ceftriaxone IV and metronidazole oral plan 2 weeks of IV ceftriaxone along with oral metronidazole then can switch to cefdinir 300 mg PO BID along with ongoing metronidazole for another 2 weeks - end of therapy 09/04
- midline
- script sent to outsole caser
- colonoscopy 1 month ago with polyps - resected, no need to repeat screening at this time
- stable for dc when home IV antibiotics arranged
- follow up in my office
Chief Complaint
-: Other (pyogenic liver abscess)
Subjective / Review of Systems
afebrile
bp stable
L shift resolved today
drain output remains low
Vital Signs / Physical Exam
Vital Signs
Vital Signs
Temp Pulse Resp BP Pulse Ox
97.6 F 62 18 115/62 93
08/12/24 07:05 08/12/24 07:05 08/12/24 07:05 08/12/24 07:05 08/12/24 07:05
Physical Exam
Constitutional: No Acute Distress
Cardiovascular: Regular Rate and S1/S2; Negative Murmur or Rub
Pulmonary: Clear and Symmetric; Negative Wheezes or Rales
Gastrointestinal: Soft, Non Tender, Non Distended and Normal Bowel Sounds
Skin: Warm and Dry; Negative Rash or Jaundice
Lines: Other (drain)
Objective Data
Lab Data
Lab Results
08/12/24 08:36
08/12/24 08:36
ESR 48 mm/hour (0-20) H 08/12/24 08:36
Estimated Creat Clear 72 ml/min 08/12/24 08:36
Total Bilirubin 0.9 mg/dl (0.2-1.3) 08/11/24 06:03
AST 24 U/L (17-59) 08/11/24 06:03
ALT 46 U/L (0-50) 08/11/24 06:03
Alkaline Phosphatase 75 U/L (38-126) 08/11/24 06:03
C-Reactive Protein 159.20 mg/L (0.0-10.00) H 08/12/24 08:36
Most recent labs reviewed.
Micro Results:
08/08/24 16:30 Blood Culture - Preliminary
Blood/Venous No Growth in 72 hours- Final report to follow
08/08/24 15:35 Blood Culture - Preliminary
Blood/Venous No Growth in 72 hours- Final report to follow
08/08/24 09:13 Anaerobic Culture - Preliminary
Abscess Culture pending. Anaerobic cultures are examined after 3
days incubation. Additional information to follow.
08/08/24 09:13 Wound Culture - Preliminary
Abscess No growth
Gram Stain - Preliminary
Care Review
Plan reviewed with: Physician (Dr Thomas - dispo planning)
--- NOTE | 2024-08-12 12:56 | CM ---
CM confirmed w/ Bette/[facility] clinical liaison that abx delivery can be arranged for either tonight or tomorrow morning. Pt will have 4 pm dose today and can d/c afterwards. Hospitalist confirmed pt can d/c once IV infusion is set up. Bette will
complete bedside teaching w/ pt and spouse at bedside today. Pt will need VN for [place] drain, [facility]. Pt will need IR follow up for drain study and removal.
Spouse will transport at d/c
[facility]

Plan: Home w/ IV abx supplied by [facility] for VN for drain
[2024-08-12 13:45] VITALS: PULSE 58; O2SAT 97
--- NOTE | 2024-08-12 14:27 | W.DCSUMMARY ---
Discharge Summary
Discharge Data
Date of Admission: 08/08/24
Date of Discharge: 08/12/24
-
Pending Results: No
Hospital Course
Mr. Cosby is a 73-year-old male with a medical history of hypertension, CKD stage IIIb, abdominal aortic aneurysm (status post repair 2018), current smoker, and COPD with chronic cough who presented with fevers, rigors, and sporadic hiccups.
He was recently discharged on 07/29 after treatment for respiratory symptoms in the setting of acute influenza infection. He developed fevers and rigors in his PCPs office and so was sent back to to the ED for further evaluation. He had been
saturating appropriately on low-flow nasal cannula and intermittently on room air. He had a significant leukocytosis of 17,000 which is likely at least in part due to recent steroid use. Chest imaging was unremarkable. CT abdomen pelvis showed
intrahepatic space-occupying lesions highly suspicious for neoplasm. He was started on broad-spectrum antibiotics and admitted for further evaluation management of sepsis secondary to pneumonia and liver mass.
He was brought to interventional radiology for biopsy of liver mass on 08/08 at which point judith pus was expelled from the lesion. A drain was placed and antibiotics were narrowed to ceftriaxone and metronidazole. Cultures from IR aspiration have
not yet resulted but all other cultures have remained negative. He will be continued on ceftriaxone via midline at home to complete a 2-week course through 08/21/2024, after which he will switch to oral cefdinir 3 mg p.o. twice daily for another 2
weeks through 09/04/2024. He will be continued on oral metronidazole for that same duration. His right upper quadrant drain remains in place with diminishing purulent output. He will need to follow-up with IR in the outpatient office for drain
study and removal (phone number [phone], call for appointment). In the meantime, he will receive home care services for assistance with home IV antibiotics and drain care.
His respiratory status has improved with antibiotics. He continues to have a cough but has been saturating appropriately on room air. He has been advised to abstain from smoking. He will be provided with prescription for nicotine patches. He
should follow-up closely with the mold sprayer for ongoing management.
Also of note, his blood pressure was well-controlled during his hospitalization without the need for his home chlorthalidone and lisinopril, both of which were placed on hold due to borderline low blood pressure. He should follow-up with his
primary care physician for ongoing blood pressure management and adjustment to his antihypertensive regimen as needed.
Gen-AAOx3, NAD
HEENT-NC, AT, anicteric, clear oral mm
CV-regular rhythm, no murmur
Lungs-symmetric chest rise, no increased work of breathing, mild inspiratory crackles bilaterally
Abd-soft, right upper quadrant drain with purulent output
Musculoskeletal-no edema, no deformity
Skin-dry, no ulcers
Neuro-grossly non-focal, no tremor
Psych-calm, cooperative
Discharge Plan
-
Patient Disposition: Home with Home Care
Discharge Diagnosis/Procedures: Liver abscess
Diet: No restrictions
Activity: As tolerated
Activity Restrictions/Additional Instructions:
Mr. Cosby is a 73-year-old male with a medical history of hypertension, CKD stage IIIb, abdominal aortic aneurysm (status post repair 2017), current smoker, and COPD with chronic cough who presented with fevers, rigors, and sporadic hiccups.
He was recently discharged on 07/29 after treatment for respiratory symptoms in the setting of acute influenza infection. He developed fevers and rigors in his PCPs office and so was sent back to to the ED for further evaluation. He had been
saturating appropriately on low-flow nasal cannula and intermittently on room air. He had a significant leukocytosis of 17,000 which is likely at least in part due to recent steroid use. Chest imaging was unremarkable. CT abdomen pelvis showed
intrahepatic space-occupying lesions highly suspicious for neoplasm. He was started on broad-spectrum antibiotics and admitted for further evaluation management of sepsis secondary to pneumonia and liver mass.
He was brought to interventional radiology for biopsy of liver mass on 08/08 at which point judith pus was expelled from the lesion. A drain was placed and antibiotics were narrowed to ceftriaxone and metronidazole. Cultures from IR aspiration have
not yet resulted but all other cultures have remained negative. He will be continued on ceftriaxone via midline at home to complete a 2-week course through 08/21/2024, after which he will switch to oral cefdinir 3 mg p.o. twice daily for another 2
weeks through 09/04/2024. He will be continued on oral metronidazole for that same duration. His right upper quadrant drain remains in place with diminishing purulent output. He will need to follow-up with IR in the outpatient office for drain
study and removal (phone number [phone], call for appointment). In the meantime, he will receive home care services for assistance with home IV antibiotics and drain care.
His respiratory status has improved with antibiotics. He continues to have a cough but has been saturating appropriately on room air. He has been advised to abstain from smoking. He will be provided with prescription for nicotine patches. He
should follow-up closely with the mold sprayer for ongoing management.
Also of note, his blood pressure was well-controlled during his hospitalization without the need for his home chlorthalidone and lisinopril, both of which were placed on hold due to borderline low blood pressure. He should follow-up with his
primary care physician for ongoing blood pressure management and adjustment to his antihypertensive regimen as needed.
Referrals:
Gamal Mcdonald Jr., [Family Provider] -
Loretta Mcconnell MD [Active] -
Prescriptions:
New
metronidazole 500 mg tablet
500 mg PO Q8H 24 Days Qty: 72 0RF
cefdinir 300 mg capsule
300 mg PO BID 14 Days Qty: 28 0RF
Rx Instructions:
Rx to start taking cefdinir 08/22-09/04, after completing 2 week course of ceftriaxone
nicotine 14 mg/24 hr Patch 24 Hour
14 mg transdermal DAILY 30 Days Qty: 30 0RF
melatonin 5 mg Tablet
5 mg PO HS 30 Days Qty: 30 0RF
sennosides-docusate sodium 8.6-50 mg Tablet
1 tab PO BID 5 Days Qty: 10 0RF
tramadol 50 mg Tablet
50 mg PO Q6HPRN PRN (Reason: moderate pain) Qty: 20 0RF
benzonatate 100 mg Capsule
200 mg PO TIDPRN PRN (Reason: cough) 10 Days Qty: 30 0RF
ceftriaxone 2 gram Recon Soln
2,000 mg IV Q24H 9 Days Qty: 9 0RF
Continued
cyanocobalamin (vitamin B-12) [Vitamin B-12] 100 mcg Tablet
100 mcg PO DAILY
atorvastatin 10 mg tablet
10 mg PO QPM
fenofibrate micronized 67 mg capsule
67 mg PO QPM
doxazosin 8 mg tablet
8 mg PO QPM
aspirin 81 mg Tablet,Chewable
81 mg PO DAILY
dutasteride 0.5 mg capsule
0.5 mg PO QPM
metoprolol succinate 25 mg tablet extended release 24 hr
25 mg PO DAILY
albuterol sulfate 1.25 mg/3 mL solution for nebulization
1.25 mg inhalation Q4H Qty: 75 0RF
Held
chlorthalidone 25 mg tablet
12.5 mg PO DAILY
Hold Instructions: Until blood pressure rechecked by primary care physician
lisinopril 40 mg tablet
20 mg PO QPM
Hold Instructions: Until blood pressure rechecked by primary care physician
Discontinued
nicotine (polacrilex) 2 mg Gum
2 mg PO Q2HPRN PRN (Reason: craving nicotine) 30 Days Qty: 30 0RF
guaifenesin 600 mg tablet extended release 12hr
600 mg PO [id number] PRN (Reason: cough)
prednisone 20 mg tablet
20 mg PO DAILY
Discharge Orders:
Discharge Patient (As Directed); Ordered 08/12/24
Ordered By: Chris Thomas
Discharge Date and Time
Print Language: SYRIAC
[2024-08-12 15:20] VITALS: BP 144/68
[2024-08-12] MEDS: ROCEPHIN 2000 MG IV (15:39)
[2024-08-12] MEDS: STERILE WATER FOR INJECTION 20 ML IV (15:39)
--- NOTE | 2024-08-13 09:48 | W.PN.UPDATE ---
Update Note
Progress Note Update
73 yo male with pyogenic hepatic abscess s/p IR drain placement on 08/08/24. Output yesterday was documented as 25cc. He was discharged yesterday with drain care instructions. called today requesting drain check because pt was having pain. I
explained to that we recommend drain check with potential removal once output is less than 10cc/day for 2-3 consecutive days. Explained that if we remove too soon abscess could come back and he may require another drain. was comfortable
with the explanation. He is scheduled for drain check and possible removal on 08/19/24.
== END 2024-08-12 17:02 | disposition home or self-care (01) | DRG 442 ==
LOC: 4 WEST ACU 10:26
PROVIDERS: Radiology Vascular & Interventional Radiology; ADMITTING PHYSICIAN Internal Medicine; ATTENDING PHYSICIAN Internal Medicine; CONSULT PHYSICIAN Student in an Organized Health Care Education/Training Program; FAMILY PHYSICIAN Family Medicine
PROC: 0F9030Z Drainage of Liver with Drainage Device, Percutaneous Approach (ICD-10-PCS; 2024-08-08)
DX: K75.0 Abscess of liver (principal); N17.9 Acute kidney failure, unspecified; I12.9 Hypertensive chronic kidney disease with stage 1 through stage 4 chronic kidney disease, or unspecified chronic kidney disease; J44.9 Chronic obstructive pulmonary disease, unspecified; C61 Malignant neoplasm of prostate; F17.210 Nicotine dependence, cigarettes, uncomplicated; N18.32 Chronic kidney disease, stage 3b; D72.829 Elevated white blood cell count, unspecified; E78.5 Hyperlipidemia, unspecified; T38.0X5A Adverse effect of glucocorticoids and synthetic analogues, initial encounter; Z79.82 Long term (current) use of aspirin; Z79.52 Long term (current) use of systemic steroids; Z79.899 Other long term (current) drug therapy; Z86.79 Personal history of other diseases of the circulatory system
CPT/HCPCS: 88307; 47000; 49405; 71045; 77012; 80048; 80053; 83735; 84100; 85025; 85652; 86140; 87040; 87070; 87075; 87205; 88333; 88342; 94640; 97162; 99152; C1729; C1769

== ENCOUNTER → 2024-08-19 12:23 | Outpatient (REF) | payer OTHER, SELFPAY ==
[2024-08-19 12:35] VITALS: BP 145/73; BP_SYST 69
[2024-08-19 12:57] VITALS: BP 154/70
== END ==
LOC: RADI 12:23
PROVIDERS: ATTENDING PHYSICIAN Radiology Diagnostic Radiology
DX: Z46.82 Encounter for fitting and adjustment of non-vascular catheter (principal); K75.0 Abscess of liver
CPT/HCPCS: 49424; 76080

== ENCOUNTER → 2024-09-09 17:15 | Outpatient (REF) | payer OTHER, SELFPAY ==
[2024-09-09 18:00] LABS: ALT (SGPT) 32 U/L (0-50); AST (SGOT) 32 U/L (17-59); Albumin 3.8 g/dl (3.5-5.0); Alkaline Phosphatase 64 U/L (38-126); Blood Urea Nitrogen 22 mg/dl (9-20); Calcium 9.6 mg/dl (8.4-10.2); Carbon Dioxide 28 mmol/L (22-30); Chloride 109 mmol/L (98-107); Glucose 126 mg/dl (70-99); Potassium 4.1 mmol/L (3.5-5.1); Sodium 144 mmol/L (135-145); Total Bilirubin 0.8 mg/dl (0.2-1.3); eGFR 57.65
[2024-09-09 18:06] LABS: % Basophils 0.5 % (0-2); % Eosinophils 2.7 % (0-6); % Immature Granulocytes 0.3 % (0-0.5); % Monocytes 8.1 % (1.7-9.3); % Neutrophils 50.4 % (42.2-75.2); Absolute Eosinophils 0.2 10^3/uL (0-0.7); Absolute Lymphocytes 3.3 10^3/uL (1.2-3.4); Absolute Monocytes 0.7 10^3/uL (0.1-0.6); Absolute Neutrophils 4.4 10^3/uL (1.4-6.5); Hemoglobin 13.9 g/dL (13.0-18.0); Mean Corp Hgb Conc. 33.1 g/dL (33.0-37.0); Mean Corpuscular Hgb 28.8 pg (27.0-31.0); Nucleated Red Blood Cells % 0 % (-); Platelet Count 200 10^3/uL (130-400); Red Blood Cell Count 4.83 10^6/uL (4.70-6.10); Red Cell Dist. Width 15.3 % (11.5-14.5); White Blood Cell Count 8.8 10^3/uL (4.8-10.8)
== END ==
LOC: RAD 17:15
PROVIDERS: ATTENDING PHYSICIAN Registered Nurse
DX: R05.1 Acute cough (principal); K75.0 Abscess of liver
CPT/HCPCS: 36415; 71046; 80053; 85025

== ENCOUNTER → 2024-10-13 07:54 | Outpatient (REF) | payer OTHER, SELFPAY | LOC: RAD 07:54 | PROVIDERS: REFERRING PHYSICIAN Family Medicine | DX: I65.23 Occlusion and stenosis of bilateral carotid arteries (principal); Z98.890 Other specified postprocedural states; I73.9 Peripheral vascular disease, unspecified | CPT/HCPCS: 76770; 93880; 93922 ==

== ENCOUNTER 2025-02-24 10:00 | Emergency (ER) | payer OTHER, SELFPAY ==
[2025-02-24] VITALS (8 sets, daily range): BP systolic 111–127; BP diastolic 57–86; BMI 31.4
[2025-02-24 10:29] LABS: Hematocrit 45.7 % (39.0-52.0); Hemoglobin 15.0 g/dL (13.0-18.0); Mean Corp Hgb Conc. 32.8 g/dL (33.0-37.0); Mean Corpuscular Volume 87.5 fL (80.0-94.0); Nucleated Red Blood Cells % 0 % (-); Platelet Count 160 10^3/uL (130-400); Red Cell Dist. Width 13.8 % (11.5-14.5)
[2025-02-24 10:50] LABS: ALT (SGPT) 28 U/L (0-50); AST (SGOT) 29 U/L (17-59); Albumin 4.3 g/dl (3.5-5.0); Alkaline Phosphatase 43 U/L (38-126); Blood Urea Nitrogen 48 mg/dl (9-20); Calcium 9.4 mg/dl (8.4-10.2); Carbon Dioxide 21 mmol/L (22-30); Chloride 111 mmol/L (98-107); Glucose 122 mg/dl (70-99); Potassium 5.1 mmol/L (3.5-5.1); Sodium 139 mmol/L (135-145); Total Protein 7.1 g/dl (6.3-8.2); eGFR 27.62
[2025-02-24] MEDS: LR 500 IV (12:15)
--- NOTE | 2025-02-24 13:57 | ED.GENMED ---
History of Present Illness
<Chris Garvey PA-C - Last Filed: 02/24/25 14:28>
General
Chief Complaint: Abnormal Lab Value
Time Seen by Provider: 02/24/25 11:41
History of Present Illness
History of Present Illness:
74-year-old male presents to the emergency department for evaluation of abnormal renal function. He has known history of stage III CKD however on routine labs he was noted to have abnormal creatinine, this was rechecked this week and continued to
be elevated. He does endorse decreased p.o. intake recently as well as soft stools over the past several days. Denies any recent fevers or chills. Denies any flank or abdominal pain.
Review of Systems
<Chris Garvey PA-C - Last Filed: 02/24/25 14:28>
Review of Systems
Allergies reviewed?: Yes
All Other Systems: ROS reviewed and negative except as documented in HPI and ROS
Phy Exam
<Chris Garvey PA-C - Last Filed: 02/24/25 14:28>
Physical Exam
Physical Exam:
GEN: Well appearing, NAD, WDWN
HEENT: Oral mucosa moist, no scleral icterus
Cardiac: Regular rate
Lung: No respiratory distress, no tachypnea
MSK: No gross deformity or injuries
Skin: Good color, no pallor or jaundice, no rashes
Neuro: AO x3, moves all extremities freely
Psych: Calm, cooperative
Course
<Chris Garvey PA-C - Last Filed: 02/24/25 14:28>
Orders/Labs/Results
Orders:
Orders
02/24/25 10:15
CMP [Comprehensive Metabolic Panel] Urgent
Complete Blood Count/With Diff Urgent
02/24/25 11:44
Lactated Ringers [Lr] 500 ml IV BOLUS
02/24/25 11:58
US Renal With Bladder Urgent
Comment:
Reason For Exam: renal failure
02/24/25 14:40
Urinalysis Reflex To Culture Urgent
Date Specimen was Collected: 02/24/25
Time Specimen was Collected: 12:01
Urine Microscopic Reflex Cult Urgent
Urine Culture Urgent
RITESH Source: U
Specimen Description:
Date Specimen was Collected: 02/24/25
Time Specimen was Collected: 12:01
02/24/25 16:18
0.9% Sodium Chloride 1000 ml [Nss] 1,000 ml IV BOLUS
Abnormal Lab Results
02/24/25 02/24/25
10:15 14:40
MCHC 32.8 L g/dL
(33.0-37.0)
MPV 10.7 H fL
(7.4-10.4)
Absolute Monos (auto) 0.8 H 10^3/uL
(0.1-0.6)
Chloride 111 H mmol/L
(98-107)
Carbon Dioxide 21 L mmol/L
(22-30)
BUN 48 H mg/dl
(9-20)
Creatinine 2.4 H mg/dL
(0.7-1.3)
Glucose 122 H mg/dl
(70-99)
Leukocyte Esterase Rfl 2+ A
(Negative)
Urine WBC (Reflex) 11-15 A /HPF
(0-5)
Urine Bacteria (Reflex) Few A
(Negative)
Urine Albumin (Reflex) 1+ A
(Neg - Trace)
02/24/25 10:15
02/24/25 10:15
Vital Signs
Initial and Last Documented VS:
Initial Vital Signs
Temp Pulse Resp BP Pulse Ox
97.7 F 62 18 111/57 100
02/24/25 10:06 02/24/25 10:06 02/24/25 10:06 02/24/25 10:06 02/24/25 10:06
Last Documented Vital Signs
Temp Pulse Resp BP Pulse Ox
98.2 F 58 13 118/75 96
02/24/25 14:00 02/24/25 14:00 02/24/25 14:00 02/24/25 14:00 02/24/25 16:00
<Ezra Kruse, DO - Last Filed: 02/24/25 16:24>
Orders/Labs/Results
Orders:
Orders
02/24/25 10:15
CMP [Comprehensive Metabolic Panel] Urgent
Complete Blood Count/With Diff Urgent
02/24/25 11:44
Lactated Ringers [Lr] 500 ml IV BOLUS
02/24/25 11:58
US Renal With Bladder Urgent
Comment:
Reason For Exam: renal failure
02/24/25 14:40
Urinalysis Reflex To Culture Urgent
Date Specimen was Collected: 02/24/25
Time Specimen was Collected: 12:01
Urine Microscopic Reflex Cult Urgent
Urine Culture Urgent
RITESH Source: U
Specimen Description:
Date Specimen was Collected: 02/24/25
Time Specimen was Collected: 12:01
02/24/25 16:18
0.9% Sodium Chloride 1000 ml [Nss] 1,000 ml IV BOLUS
Abnormal Lab Results
02/24/25 02/24/25
10:15 14:40
MCHC 32.8 L g/dL
(33.0-37.0)
MPV 10.7 H fL
(7.4-10.4)
Absolute Monos (auto) 0.8 H 10^3/uL
(0.1-0.6)
Chloride 111 H mmol/L
(98-107)
Carbon Dioxide 21 L mmol/L
(22-30)
BUN 48 H mg/dl
(9-20)
Creatinine 2.4 H mg/dL
(0.7-1.3)
Glucose 122 H mg/dl
(70-99)
Leukocyte Esterase Rfl 2+ A
(Negative)
Urine WBC (Reflex) 11-15 A /HPF
(0-5)
Urine Bacteria (Reflex) Few A
(Negative)
Urine Albumin (Reflex) 1+ A
(Neg - Trace)
02/24/25 10:15
02/24/25 10:15
Vital Signs
Initial and Last Documented VS:
Initial Vital Signs
Temp Pulse Resp BP Pulse Ox
97.7 F 62 18 111/57 100
02/24/25 10:06 02/24/25 10:06 02/24/25 10:06 02/24/25 10:06 02/24/25 10:06
Last Documented Vital Signs
Temp Pulse Resp BP Pulse Ox
98.2 F 58 13 118/75 96
02/24/25 14:00 02/24/25 14:00 02/24/25 14:00 02/24/25 14:00 02/24/25 16:00
<Chris Garvey PA-C - Last Filed: 02/24/25 14:28>
MDM/Problems Addressed
MDM/Problems Addressed:
Acute creatinine elevation may be prerenal in nature given BUN/creatinine ratio coupled with lack of clear obstructive pathology on imaging. May be accelerated by use of diuretic and ALYSHA inhibitor. Will admit to the hospitalist service for further
management
<Chris Garvey PA-C - Last Filed: 02/24/25 14:28>
*Pulse Oximetry
SaO2: 95
Oxygen Mode of Delivery: Room air
Patient hypoxic: no
*Critical Care Note
Total Time (30-74mins, 75-104mins- exclusive of procedures): Not Applicable
ED Attending Note
<Chris Garvey PA-C - Last Filed: 02/24/25 14:28>
-
Portions of this chart may have been created with voice recognition software.� Occasional wrong word or��sound alike� substitutions may have occurred due to the inherent limitations of voice recognition software.
<Ezra Kruse DO - Last Filed: 02/24/25 16:24>
ED Attending Note
Patient seen and examined by attending physician: Yes
I performed the substantive portion of visit, reviewed & personally made and approve the management plan that is documented in note by myself or BHASKAR.: Yes
ED Attending Note:
I have seen and evaluated the patient with a [id number] encounter. I have spoken to the advance practicer provider and involved in the medical history, the physical exam, medical decision making.
Evaluation and management service: agree unless noted differently below.
Results interpretation: agree unless noted differently below.
Focused HPI: Patient presents for evaluation of elevated kidney function as seen by outpatient blood work
Physical exam: Sitting in bed comfortably. No acute distress
Medical Decision Makin:21 PM the admitting hospitalist came up to me and suggesting discharge. Patient states he now wants to go home. He believes that the current issue is related to his lisinopril and chlorthalidone and he suggested holding
the medications for about a week until he can talk to his primary care die equipment operator. The mild hyperkalemia was noted but the hospital believes that the fluid that he received in the emergency department should suffice. I personally evaluated the
patient and he is well-appearing nontoxic and he is very comfortable with this plan and request discharge and he does verbalize understanding the inherent risks of leaving
Discharge Plan
Departure
Patient Disposition: Home (Routine Discharge)
Date of Disposition: 02/24/25
Time of Disposition: 14:28
Patient with high blood pressure during this ER visit?: No
Discharge Problem:
Acute kidney injury superimposed on CKD
Prescriptions:
No Action
cyanocobalamin (vitamin B-12) [Vitamin B-12] 100 mcg Tablet
100 mcg PO DAILY
fenofibrate micronized 67 mg capsule
67 mg PO QPM
doxazosin 8 mg tablet
8 mg PO QPM
aspirin 81 mg Tablet,Chewable
81 mg PO DAILY
dutasteride 0.5 mg capsule
0.5 mg PO QPM
metoprolol succinate 25 mg tablet extended release 24 hr
25 mg PO DAILY
nicotine 14 mg/24 hr Patch 24 Hour
14 mg transdermal DAILY 30 Days Qty: 30 0RF
melatonin 5 mg tablet
5 mg PO HSPRN PRN (Reason: SLEEP)
albuterol sulfate 2.5 mg /3 mL (0.083 %) Solution For Nebulization
2.5 mg INHALATION R Q6HPRN PRN (Reason: SOB)
atorvastatin [Lipitor] 20 mg Tablet
20 mg PO QPM
chlorthalidone 25 mg Tablet
12.5 mg PO DAILY
lisinopril 40 mg Tablet
40 mg PO DAILY
fluticasone furoate-vilanterol [Breo Ellipta] 100-25 mcg/dose Blister With Device
1 inh INHALATION R DAILY
Referrals:
Gamal Mcdonald Jr., DO [Family Provider, Internal Medicine]
Activity Restrictions/Additional Instructions:
Per our discussion with the admitting hospitalist, he recommended that you hold your lisinopril and chlorthalidone for approximately 1 week. Regardless, please have this discussion with your primary care doctor and die equipment operator.
Please return for any worsening symptoms.
You may return at any time if you have further concerns.
Interventions
Interventions:
*Risk Screen - Suicide Last Done: 02/24/25 10:06
*General Assessment Last Done: 02/24/25 10:06
Discharge Date and Time
Print Language: TUVALUAN
[2025-02-24 14:53] LABS: Urine Character Clear (Clear)
[2025-02-24 15:04] LABS: Urine Red Blood Cell 0-2 /HPF (0-2); Urine Squamous Cell 0-2 /LPF (Few)
--- NOTE | 2025-02-24 17:01 | CON.HOSP ---
Consultation
-
Date/Time Consultation Requested: 02/24/2025
Date/Time Consultation Performed: 02/24/2025
Requesting Provider: Dr Kruse
Performing Provider: Dr Simmons
Reason for Consultation: Acute kidney injury
Family Physician
-
Family Physician: Gaaml Mcdonald Jr.
Chief Complaint
-
Abnormal lab results
History of Present Illness
Patient is a 74 years old male with history of BPH, stage I prostate carcinoma under close monitoring on dutasteride, recent hospitalization with nephrolithiasis requiring urologic intervention with stone manipulation in outside hospital, currently
disease stage III with baseline creatinine 1.3, essential hypertension, tobacco use disorder, recently quit, most recent hospitalization at [facility] for hepatic abscess was sent to the emergency room for evaluation given abnormal blood
work. Patient recently suffered from gastrointestinal illness with few days of loose stools and relatively decreased oral intake. Persistent fatigue prompted to lab work which was elevated for elevated creatinine of 2.4 and mild hyperkalemia
potassium 5.1. Patient was sent to the emergency room for further evaluation.
Medical History
Past Medical History
Additional Past Medical History:
Hypertension.
CKD stage IIIa baseline creatinine 1.3
Prostate carcinoma
BPH without retention
Past Surgical History: Reports Other (Urologic)
Social History
Tobacco: Smoker (Currently quit currently on nicotine patch)
Alcohol: None
Drug: None
Personal:
Living: With Family
Allergies / Home Medications
Allergies reflects when Allergies were last updated in [facility].
Home Medications with original date entered in [facility]
Allergy/Medication List:
Allergies
Allergy/AdvReac Type Severity Reaction Status Date / Time
No Known Allergies Allergy Verified 02/24/25 10:07
Home Medications
aspirin 81 mg chewable tablet 81 mg PO DAILY Blood Clot Prevention/Tx 07/28/24
cyanocobalamin (vitamin B-12) 100 mcg tablet (Vitamin B-12) 100 mcg PO DAILY Supplement 07/28/24
doxazosin 8 mg tablet 8 mg PO QPM Blood Pressure 07/28/24
dutasteride 0.5 mg capsule 0.5 mg PO QPM Urinary Issue 07/28/24
fenofibrate micronized 67 mg capsule 67 mg PO QPM High Cholesterol 07/28/24
metoprolol succinate 25 mg tablet,extended release 24 hr 25 mg PO DAILY Blood Pressure 08/06/24
nicotine 14 mg/24 hr daily transdermal patch 14 mg transdermal DAILY Smoking cessation 30 days #30 ea 08/12/24
albuterol sulfate 2.5 mg/3 mL (0.083 %) solution for nebulization 2.5 mg inhalation R Q6HPRN PRN SOB 02/24/25
atorvastatin 20 mg tablet (Lipitor) 20 mg PO QPM 02/24/25
chlorthalidone 25 mg tablet 12.5 mg PO DAILY 02/24/25
fluticasone furoate 100 mcg-vilanterol 25 mcg/dose inhalation powder (Breo Ellipta) 1 inh inhalation R DAILY 02/24/25
lisinopril 40 mg tablet 40 mg PO DAILY 02/24/25
melatonin 5 mg tablet 5 mg PO HSPRN PRN SLEEP 02/24/25
Review of Systems
-
A 12 point Review of Systems was completed except as noted: Yes
Respiratory: Reports No Symptoms
Cardiac: Reports No Symptoms
Abdomen/GI: Reports No Symptoms
: Reports No Symptoms
Physical Exam
Vital Signs
Vital Signs
Temp Pulse Resp BP Pulse Ox
98.2 F 58 13 118/75 96
02/24/25 14:00 02/24/25 14:00 02/24/25 14:00 02/24/25 14:00 02/24/25 16:00
Physical Exam
General: Well Developed, Well Nourished and No Apparent Distress
HEENT: Normocephalic, Moist Mucous Membranes and Atraumatic
Respiratory: Clear
Cardiac: S1/S2 and Regular Rhythm; Negative Murmur or Rub
GI: Soft, Non Tender, Non Distended and Normal Bowel Sounds
Rectal: Deferred by Provider
Musculoskeletal: No Clubbing, No Cyanosis and No Edema
Skin: Negative Rash
Neuro: Nonfocal/Grossly Intact
Laboratory Results
-
Laboratory Results
02/24/25 10:15
02/24/25 10:15
Total Bilirubin 0.6 mg/dl (0.2-1.3) 02/24/25 10:15
AST 29 U/L (17-59) 02/24/25 10:15
ALT 28 U/L (0-50) 02/24/25 10:15
Alkaline Phosphatase 43 U/L (38-126) 02/24/25 10:15
Impression / Plan
-
IMPRESSION:
Acute kidney injury
CKD stage IIIa with baseline creatinine 1.3
Other conditions
BPH without retention
Prostate carcinoma under surveillance/monitoring.
Essential hypertension.
Nephrolithiasis requiring urologic intervention.
History of liver abscess
PLAN:
Acute kidney injury.
I symptomatic with no complaints suggestive of urinary retention.
Urinalysis relatively unremarkable.
Renal sonogram with no focal abnormalities of the bladder, a right ureteral jet only is demonstrated. Enlarged prostate gland extending to the base of the bladder compatible with prostate hyperplasia. Postvoid bladder residual 23 cc no renal
abnormalities.
Suspect SARITA with elevated creatinine of 2.4 is likely due to recent GI illness manifested with loose stools and relatively low oral intake as well as presence of ALYSHA inhibitor and and diuresis with chlorthalidone.
Patient advised to hold lisinopril and chlorthalidone at least for next week.
Patient received 1 L of normal saline while in the emergency room
He has good appetite and reports stable oral intake including fluids currently
Discussed with primary physician over the phone asking for follow-up blood work in 3 to 5 days to assure appropriate trend of creatinine and normal electrolytes
Patient has established follow-up with nephrology and urology as outpatient
Will continue dutasteride
Essential hypertension
Continue metoprolol hold lisinopril and chlorthalidone as mentioned above
== END 2025-02-24 16:00 | disposition home or self-care (01) ==
LOC: EMR 10:00
PROVIDERS: Emergency Medicine; Physician Assistant; EMERGENCY PHYSICIAN Student in an Organized Health Care Education/Training Program; FAMILY PHYSICIAN Family Medicine
DX: I12.9 Hypertensive chronic kidney disease with stage 1 through stage 4 chronic kidney disease, or unspecified chronic kidney disease (principal); N18.31 Chronic kidney disease, stage 3a; E87.5 Hyperkalemia; N17.9 Acute kidney failure, unspecified; Z79.899 Other long term (current) drug therapy
CPT/HCPCS: 99284; 96360; 76770; 80053; 81003; 81015; 85025; 87086

== ENCOUNTER → 2025-04-13 13:55 | Outpatient (REF) | payer OTHER, SELFPAY | LOC: RAD 13:55 | PROVIDERS: ATTENDING PHYSICIAN Family Medicine | DX: M54.50 Low back pain, unspecified (principal) | CPT/HCPCS: 72110 ==

== ENCOUNTER → 2025-05-05 17:11 | Outpatient (REF) | payer OTHER, SELFPAY | LOC: PAVMRI 17:11 | PROVIDERS: ATTENDING PHYSICIAN Pain Medicine Interventional Pain Medicine; FAMILY PHYSICIAN Family Medicine | DX: M54.16 Radiculopathy, lumbar region (principal) | CPT/HCPCS: 72148 ==

== ENCOUNTER 2025-06-07 20:05 | Emergency (ER) | payer OTHER, SELFPAY ==
[2025-06-07 20:10] VITALS: BP 142/76
[2025-06-07 20:31] LABS: Hematocrit 47.9 % (39.0-52.0); Hemoglobin 15.9 g/dL (13.0-18.0); Mean Corp Hgb Conc. 33.2 g/dL (33.0-37.0); Mean Corpuscular Volume 85.4 fL (80.0-94.0); Nucleated Red Blood Cells % 0 % (-); Platelet Count 169 10^3/uL (130-400); Red Cell Dist. Width 13.5 % (11.5-14.5)
[2025-06-07 20:51] LABS: ALT (SGPT) 45 U/L (0-50); AST (SGOT) 37 U/L (17-59); Albumin 4.3 g/dl (3.5-5.0); Alkaline Phosphatase 46 U/L (38-126); Blood Urea Nitrogen 37 mg/dl (9-20); Calcium 10.8 mg/dl (8.4-10.2); Carbon Dioxide 26 mmol/L (22-30); Chloride 105 mmol/L (98-107); Glucose 131 mg/dl (70-99); Potassium 4.2 mmol/L (3.5-5.1); Sodium 137 mmol/L (135-145); Total Protein 7.4 g/dl (6.3-8.2); eGFR 44.93
[2025-06-07 22:01] VITALS: BP 135/58
[2025-06-07 22:24] VITALS: BMI 31.7
[2025-06-07 23:00] VITALS: BP 120/56
[2025-06-08 00:02] VITALS: BP 146/68
[2025-06-08 00:37] LABS: COVID-19 Antigen Negative (Negative)
[2025-06-08 00:44] LABS: Troponin I < 0.012 ng/ml
[2025-06-08 00:46] LABS: Urine Character Cloudy (Clear)
[2025-06-08] MEDS: DUONEB 3 ML INH (01:01)
[2025-06-08] MEDS: TYLENOL 1000 MG PO (01:02)
[2025-06-08 01:29] LABS: Urine Squamous Cell 0-2 /LPF (Few)
--- NOTE | 2025-06-08 03:13 | ED.GENMED ---
History of Present Illness
General
Chief Complaint: Abdominal Symptoms
Source: patient and spouse
Exam Limitations: none
Time Seen by Provider: 06/07/25 23:29
Nursing documentation reviewed up to this point in time: agreed with
History of Present Illness
History of Present Illness:
Note:
CHIEF COMPLAINT(S)
Vomiting
HISTORY OF PRESENT ILLNESS
The patient is a 74-year-old male who presents with a chief complaint of vomiting. The onset was abrupt, happening once while sitting after eating pizza, with no preceding nausea. The vomiting episode was significant, described as 'threw up a lot,'
and was atypical for the patient. He has a history of kidney issues, including kidney stones and episodes of kidney failure earlier this year, for which he is under the care of Dr. Pradeep Castillo, a manager respiratory care. The patients noted that he was up
late the previous night and has been very tired, sleeping more than usual over the last few days. Associated symptoms include chills, increased coughing, general fatigue, and observations of dark urine. There was no fever, abdominal pain, or changes
in urination reported. The patient was in the hospital for kidney issues in November and reports receiving injections for chronic back pain last week. Despite these symptoms, he currently feels 'pretty good' and denies any significant abdominal
distension, flank pain, or pronounced edema.
ADDITIONAL HISTORY OBTAINED FROM SOURCES OTHER THAN THE PATIENT
Per the patients , the patient has been unusually tired, sleeping more than usual, and displayed chills and coughing, which is not typical for him. She also noted his history of kidney issues that have caused similar symptoms in the past.
CHRONIC MEDICAL CONDITIONS SIGNIFICANTLY AFFECTING CARE
The patient has a history of kidney stones and kidney failure.
PHYSICAL EXAM
General: Alert, no acute distress. Resting comfortably on the bed
Skin: Warm, dry.
Head: Normocephalic, atraumatic.
Neck: Supple, trachea midline.
Eye Ears, nose, mouth and throat: Oral mucosa moist.
Cardiovascular: Normal peripheral perfusion, No edema.
Respiratory: Respirations are non-labored.
Gastrointestinal: Abdomen nondistended.
Back: Normal range of motion, Normal alignment.
Musculoskeletal: Normal range of motion, normal strength.
Neurological: Alert and oriented to person, place, time, and situation, No focal neurological deficit observed.
Psychiatric: Cooperative, appropriate mood & affect.
PROBLEM LIST
Acute: Vomiting, Fatigue, Increased coughing, Chills, Dark urine
Chronic: Kidney stones, Kidney failure
PLAN
The plan includes conducting laboratory tests and imaging, specifically chest X-ray, to explore potential causes for the patients symptoms. Flu and COVID swabs will be performed. Further lab tests will be checked to rule out any underlying issues
such as infection that could be contributing to his symptoms.
DIFFERENTIAL DIAGNOSIS
The Differential Diagnosis includes, in no particular order and is not limited to:
1. Acute Gastroenteritis
2. Renal Colic due to Kidney Stones
3. Chronic Kidney Disease Exacerbation
4. Urinary Tract Infection
5. Viral Upper Respiratory Infection
6. Pneumonia
7. Dehydration
8. Medication Side Effects
9. Gastroesophageal Reflux Disease
10. Cardiac Event
Disposition:
SUMMARY OF ENCOUNTER
The patient, a 74-year-old male, presented to the emergency department with symptoms of weakness, vomiting, non-bloody diarrhea, and a fever. A CT scan of the abdomen and pelvis was performed, revealing no obstructing ureteric calculus, no
hydronephrosis, and no signs of pyelonephritis. There was a non-obstructing stone identified in the lower pole of the left kidney. The scan also noted a normal appendix and a small sliding hiatal hernia. Given his symptoms and the findings from the
imaging, I offered the patient admission but at this point wishes to be discharged home. , who is present at the bedside, agrees with this plan. She will take him home. I did discuss return to ER instructions at length with patient and .
DISPOSITION
Discharge to home
INDEPENDENT REVIEW OF LABS AND INTERPRETATION OF TESTS
- My independent interpretation of the CT scan of the abdomen and pelvis shows a non-obstructing stone in the lower pole of the left kidney, normal appendix, and a small sliding hiatal hernia.
MEDICAL DECISION MAKING
- Number and Complexity of Problems Addressed: Chronic conditions affecting care include kidney stones and kidney failure. Differential diagnosis considered includes acute gastroenteritis, renal colic due to kidney stones, chronic kidney disease
exacerbation, urinary tract infection, viral upper respiratory infection, pneumonia, dehydration, medication side effects, gastroesophageal reflux disease, and cardiac event.
- Data:
Category 1
- My independent interpretation of the CT scan of the abdomen and pelvis identified a non-obstructing stone in the lower pole of the left kidney.
Category 2
- Clinical information was obtained from an independent historian, specifically the patients , who noted unusual fatigue, chills, and increased coughing.
- Risk: Consideration of Admission due to the complexity and risk of the patients presenting complaint and underlying comorbidities. Escalation to in-patient care was deemed necessary given the significant symptoms and the identified renal stone.
DIAGNOSIS
1. Non-obstructing renal stone, left kidney (ICD-10: N20.0)
2. Acute gastroenteritis (ICD-10: A09)
3. Dehydration (ICD-10: E86.0)
Phy Exam
Physical Exam
Physical Exam:
.
Course
Orders/Labs/Results
Orders:
Orders
06/07/25 20:14
EKG [Electrocardiogram (*1)] Urgent
Reason for Study: Chest Pain
EKG- Treatment ONCE
06/07/25 20:15
Urinalysis Reflex To Culture Urgent
Date Specimen was Collected: 06/07/25
Time Specimen was Collected: 20:15
06/07/25 20:24
Complete Blood Count/With Diff Urgent
Comprehensive Metabolic Panel Urgent
Pro-BNP [NT-proBNP] Urgent
06/07/25 23:48
COVID-19 Antigen Urgent
Source: Nasal Swab
Influenza A+B Rapid Molecular Urgent
RTIESH Source: Nasal Swab
Specimen Description:
06/07/25 23:51
EKG- Treatment ONCE
Troponin I Urgent
06/08/25
Electrocardiogram (*1) Stat
Reason for Study: Shortness of Breath
06/08/25 00:05
Urine Microscopic Reflex Cult Urgent
Urine Culture Urgent
RITESH Source: U
Specimen Description:
Date Specimen was Collected: 06/07/25
Time Specimen was Collected: 20:15
06/08/25 00:57
Acetaminophen [Tylenol] 1,000 mg .ROUTE .STK-MED ONE
Ipratropium/Albuterol Sulfate [Duoneb] 3 ml .ROUTE .STK-MED ONE
06/08/25 01:01
Ipratropium/Albuterol Sulfate [Duoneb] 3 ml INH R NOW ONE
06/08/25 01:02
Acetaminophen [Tylenol] 1,000 mg PO NOW STA
06/08/25 01:37
CT Abd/pel Without Iv Or Oral Urgent
Comment:
Reason For Exam: hematuria
Abnormal Lab Results
06/07/25 06/08/25
20:24 00:05
Abs Immat Gran (auto) 0.1 H 10^3/uL
(0-0.05)
Absolute Neuts (auto) 6.7 H 10^3/uL
(1.4-6.5)
Absolute Monos (auto) 0.9 H 10^3/uL
(0.1-0.6)
Immature Gran % 0.6 H %
(0-0.5)
Lymphocytes % 13.3 L %
(20.5-51.1)
Monocytes % 9.5 H %
(1.7-9.3)
BUN 37 H mg/dl
(9-20)
Creatinine 1.6 H mg/dL
(0.7-1.3)
Glucose 131 H mg/dl
(70-99)
Calcium 10.8 H mg/dl
(8.4-10.2)
Ur Occult Blood Reflex 2+ A
(Negative)
Leukocyte Esterase Rfl 3+ A
(Negative)
Urine RBC 11-15 A /HPF
(0-2)
Urine Bacteria (Reflex) Moderate A
(Negative)
Urine Albumin (Reflex) 1+ A
(Neg - Trace)
06/07/25 20:24
06/07/25 20:24
Vital Signs
Initial and Last Documented VS:
Initial Vital Signs
Temp Pulse Resp BP Pulse Ox
99.8 F 89 20 142/76 93
06/07/25 20:10 06/07/25 20:10 06/07/25 20:10 06/07/25 20:10 06/07/25 20:10
Last Documented Vital Signs
Temp Pulse Resp BP Pulse Ox
100.4 F H 75 20 146/68 94
06/08/25 00:31 06/08/25 03:38 06/08/25 03:38 06/08/25 00:02 06/08/25 03:38
*Radiology
Radiology exam reviewed: radiology read reviewed
*Pulse Oximetry
SaO2: 92
Oxygen Mode of Delivery: Room air
Patient hypoxic: no
*Critical Care Note
Total Time (30-74mins, 75-104mins- exclusive of procedures): Not Applicable
Update Note
Update Note:
NAME: HANNAHQUENTIN Ron
DATE OF EXAM: 06/08/2025
Patient No: [id number]
Physician: AUDREY
Date of : 1950
Past Medical History (entered by Technologist):
Reason For Exam (entered by Technologist):
Other Notes (entered by Technologist): Pt has been increased work of breathing over the past 3 weeks, today sudden vomitting and fatigue. Per this is pt symptoms for kidney problems. Hematuria.
Prior sent
Additional Information (per [facility] Radiologist): Vomiting. Hematuria
CT abdomen and pelvis without contrast
Comparison: 07/31/2024
IMPRESSION:
limited unenhanced scan
No obstructing ureteral calculus, hydroureteronephrosis or signs of pyelonephritis
NonobstructingStone in the lower pole of the left kidney
[place] bladder wall appears thickened which is likely due to collapsed state and/or hypertrophic changes
(Reactive to prostatomegaly)
Several bladder calculi noted
Colonic diverticulosis without evidence for diverticulitis
Normal appendix
Small sliding hiatal hernia
Stomach appears within normal limits allowing for incomplete distention
Gallbladder, bile ducts, pancreas, and spleen appear normal
Endovascular stent graft repair of AAA
Atherosclerotic calcifications abdominal aorta and iliofemoral vessels
Enlarged prostate which is nonspecific
7 mm noncalcified solid nodule in the left lower lobe
Hepatic steatosis
Bilateral renal cysts
Degenerative changes in the spine, pelvis, and hips
Case finalized on 06/08/25 02:57 EDT
Wellington Jacob M.D.
This report has been electronically signed and verified by the Radiologist whose name is printed above.
ED Attending Note
-
Portions of this chart may have been created with voice recognition software.� Occasional wrong word or��sound alike� substitutions may have occurred due to the inherent limitations of voice recognition software.
Discharge Plan
Departure
Patient Disposition: Home (Routine Discharge)
Date of Disposition: 06/08/25
Time of Disposition: 03:18
Patient with high blood pressure during this ER visit?: No
Condition: Good
Discharge Problem:
Gastroenteritis
Instructions: Diarrhea in teens and adults, Viral gastroenteritis in adults
Prescriptions:
No Action
cyanocobalamin (vitamin B-12) [Vitamin B-12] 100 mcg Tablet
100 mcg PO DAILY
fenofibrate micronized 67 mg capsule
67 mg PO QPM
doxazosin 8 mg tablet
8 mg PO QPM
aspirin 81 mg Tablet,Chewable
81 mg PO DAILY
dutasteride 0.5 mg capsule
0.5 mg PO QPM
metoprolol succinate 25 mg tablet extended release 24 hr
25 mg PO DAILY
nicotine 14 mg/24 hr Patch 24 Hour
14 mg transdermal DAILY 30 Days Qty: 30 0RF
melatonin 5 mg tablet
5 mg PO HSPRN PRN (Reason: SLEEP)
albuterol sulfate 2.5 mg /3 mL (0.083 %) Solution For Nebulization
2.5 mg INHALATION R Q6HPRN PRN (Reason: SOB)
atorvastatin [Lipitor] 20 mg Tablet
20 mg PO QPM
chlorthalidone 25 mg Tablet
12.5 mg PO DAILY
lisinopril 40 mg Tablet
40 mg PO DAILY
fluticasone furoate-vilanterol [Breo Ellipta] 100-25 mcg/dose Blister With Device
1 inh INHALATION R DAILY
Referrals:
Gamal Mcdonald Jr., DO [Family Provider, Internal Medicine]
Activity Restrictions/Additional Instructions:
Thank You for choosing [facility].
It was a pleasure meeting you and taking part in your care. We hope for your continued healing and wellness.
Please read discharge instructions in their entirety. However, they are for general education and may not describe your exact diagnosis at discharge. Information on your ER visit and medical conditions were discussed with you along with appropriate
follow up information...
If indicated, please take your medications as instructed and indicated on discharge paperwork.
Please schedule a follow up appointment as directed. Call to schedule an appointment
Please return to the emergency department with ANY change in, persisting, or worsening of symptoms. If any of your symptoms do not improve, or persist, or become more severe within 6-12 hours, please return to the emergency department for further
care.
Please return to the emergency department if you develop a headache, neck pain/stiffness, fever greater than 100.4F, chest pain, shortness of breath, persistent nausea, vomiting, slurred speech, difficulty walking, numbness/tingling, weakness, signs
of infection or any other symptoms that are worrisome to you.
If you have any questions or concerns please do not hesitate to call the Hospital at .
Interventions
Interventions:
*General Assessment Last Done: 06/07/25 20:10
*Neglect/Abuse Screening Last Done: 06/07/25 20:10
*ED COVID-19 Vaccine History Last Done: 06/07/25 22:25
*ED Influenza Vaccine History Last Done: 06/07/25 22:25
[facility] Fall Risk Assessment Tool Last Done: 06/07/25 22:25
*Risk Screen - Suicide (C-SSRS) Last Done: 06/07/25 20:10
*Nursing Disposition Last Done: 06/08/25 03:38
AG-Zpjpma-Ymhtjxjjwy Assessment Last Done: 06/08/25 01:38
Discharge Date and Time
Discharge Date/Time: 06/08/25 03:39
Print Language: [id number]
== END 2025-06-08 03:39 | disposition home or self-care (01) ==
LOC: EMR 20:05
PROVIDERS: Emergency Medicine; EMERGENCY PHYSICIAN Student in an Organized Health Care Education/Training Program; FAMILY PHYSICIAN Family Medicine
DX: K52.9 Noninfective gastroenteritis and colitis, unspecified (principal); K44.9 Diaphragmatic hernia without obstruction or gangrene; N20.0 Calculus of kidney; M54.9 Dorsalgia, unspecified; G89.29 Other chronic pain; Z87.442 Personal history of urinary calculi
CPT/HCPCS: 99284; 94640; 74176; 80053; 81003; 81015; 83880; 84484; 85025; 87077; 87086; 87147; 87502; 87811; 93005